=== PATIENT | female | born 1975 | race Caucasian/White ===

== ENCOUNTER 2022-08-04 00:10 | Day surgery (SDC) | payer OTHER, MEDICAID, SELFPAY ==
[2022-07-29 11:06] VITALS: BMI 39.3
[2022-08-04 08:38] VITALS: BP 123/86; PULSE 118; RESP 18; TEMP 36.4; O2SAT 97; BMI 38.7
[2022-08-04] MEDS: LACTATED RINGERS 1,000 ML 150 ML IV CONT (08:48)
--- NOTE | 2022-08-04 09:37 | P.PNAN_ITS ---
Anes - Initial Pre Proc Eval Procedure: Operation Date: 08/04/22 10:00 Proposed Procedures p Screening Colonoscopy - Lobito Mancini MD Date/Time: 08/04/22 09:37 Surgeon: Lobito Mancini MD Pre Op Diagnosis: neoplasm screening Patient Data Age: 47 Gender: F Height: 1.7 m Weight: 112.3 kg Last Vital Signs Temp 97.5 F L 08/04/22 08:38 Pulse 118 H 08/04/22 08:38 Resp 18 08/04/22 08:38 BP 123/86 08/04/22 08:38 Pulse Ox 97 08/04/22 08:38 O2 Del Method Room Air 08/04/22 08:38 Allergies Allergy/AdvReac Type Severity Reaction Status Date / Time orphenadrine [From Norflex] Allergy Hives Verified 08/04/22 08:36 Home Medications Medication Instructions Recorded Confirmed Type Vitamin C 2 gummy PO DAILY 07/29/22 08/04/22 History aspirin 81 mg BYMOUTH DAILY 07/29/22 08/04/22 History atorvastatin 80 mg tablet 80 mg PO DAILY 07/29/22 08/04/22 History bupropion HCl 300 mg 24 hr tablet, 300 mg PO DAILY 07/29/22 08/04/22 History extended release buspirone 10 mg tablet 10 mg PO TID 07/29/22 08/04/22 History cariprazine 6 mg capsule (Vraylar) 6 mg PO DAILY 07/29/22 08/04/22 History cetirizine 1 tab-cap PO DAILY 07/29/22 08/04/22 History desvenlafaxine succinate 100 mg 100 mg PO DAILY 07/29/22 08/04/22 History tablet,extended release 24 hr (Pristiq) levothyroxine 25 mcg tablet 25 mcg PO DAILY 07/29/22 08/04/22 History metoprolol succinate 50 mg 50 mg PO DAILY 07/29/22 08/04/22 History tablet,extended release 24 hr mirtazapine 15 mg tablet 15 mg PO DAILY 07/29/22 08/04/22 History Patient hx anesthesia problems: none Family hx anesthesia problems: none Results Review: All pre-operative results and documents have been reviewed as part of the pre- operative evaluation. PMFSH Social History Social History Smoking packs per day: 1 Smoking cigarettes per day: 20.0 Years smoked: 35 Smoking pack-years: 35.00 Smoking status: Former smoker Tobacco type: cigarettes Alcohol intake: never Substance use: never Substance use type: does not use Living arrangements: with family Spiritual care concerns: No Anes - Eval Final PreProcedure Day of Procedure 08/04/22 09:37 Patient weight: obese Heart: regular rate and rhythm Lungs: clear to auscultation Airway: Mallampati scale class II Neurological: alert and oriented Last oral intake: >/= 8 hours ASA classification: III Emergent: no Anesthetic plan: proceed Anesthesia type and monitoring: general GIVS and standard monitoring Results Review: All pre-operative results and documents have been reviewed as part of the pre- operative evaluation. Informed Consent: The patient's anesthetic plan and its attendant risks and benefits were discussed with the patient/family/POA. Questions were solicited and answers provided to the satisfaction of the patient/family/POA.
--- NOTE | 2022-08-04 09:38 | PM.HPGS ---
History of Present Illness History of Present Illness Consent: Risks, benefits, and alternatives have been discussed and questions answered. Patient agrees to proceed with procedure. Chief complaint: neoplasm screening Narrative: Veronica Callahan is a 47 year old female with history of colon polyp Review of Systems Constitutional: Constitutional: Denies headache(s) and Denies weakness Eyes: Eyes: Denies blurry vision ENT: Reports Normal hearing present, Denies headache(s) and Denies neck pain Cardiovascular: Cardiovascular: Denies chest pain and Denies dyspnea Respiratory: Respiratory: Denies dyspnea Gastrointestinal: Gastrointestinal: Reports no additional gastrointestinal complaints Genitourinary: Genitourinary: Denies dysuria Musculoskeletal: Musculoskeletal: Denies neck pain Integumentary/Breasts: Skin/Breast: Denies dry skin Neurologic: Reports Normal hearing present, Denies headache(s) and Denies weakness Psychiatric: Psychiatric: Denies anxiety Endocrine: Endocrine: Denies change in body appearance Hematologic/Lymphatic: Hematologic/Lymphatic: Denies easy bleeding Allergic/Immunologic: Allergic/Immunologic: Denies urticaria PMF Past Medical History Medical History (Updated 08/04/22 @ 09:40 by Lobito Mancini MD) Colon polyp Social History Social History Smoking packs per day: 1 Smoking cigarettes per day: 20.0 Years smoked: 35 Smoking pack-years: 35.00 Smoking status: Former smoker Tobacco type: cigarettes Alcohol intake: never Substance use: never Substance use type: does not use Living arrangements: with family Spiritual care concerns: No Meds Home Medications and Allergies Home Medications Medication Instructions Recorded Confirmed Type Vitamin C 2 gummy PO DAILY 07/29/22 08/04/22 History aspirin 81 mg BYMOUTH DAILY 07/29/22 08/04/22 History atorvastatin 80 mg tablet 80 mg PO DAILY 07/29/22 08/04/22 History bupropion HCl 300 mg 24 hr tablet, 300 mg PO DAILY 07/29/22 08/04/22 History extended release buspirone 10 mg tablet 10 mg PO TID 07/29/22 08/04/22 History cariprazine 6 mg capsule (Vraylar) 6 mg PO DAILY 07/29/22 08/04/22 History cetirizine 1 tab-cap PO DAILY 07/29/22 08/04/22 History desvenlafaxine succinate 100 mg 100 mg PO DAILY 07/29/22 08/04/22 History tablet,extended release 24 hr (Pristiq) levothyroxine 25 mcg tablet 25 mcg PO DAILY 07/29/22 08/04/22 History metoprolol succinate 50 mg 50 mg PO DAILY 07/29/22 08/04/22 History tablet,extended release 24 hr mirtazapine 15 mg tablet 15 mg PO DAILY 07/29/22 08/04/22 History Allergies Allergy/AdvReac Type Severity Reaction Status Date / Time orphenadrine [From Norflex] Allergy Hives Verified 08/04/22 08:36 Vital Signs Vital Signs - 24 hr 08/04/22 08:38 Temperature 97.5 F L Pulse Rate 118 H Respiratory Rate 18 Blood Pressure 123/86 Pulse Oximetry 97 Oxygen Delivery Room Air Exam Const: General: comfortable and no acute distress HENMT: Face/Nose/Sinus: Normal nares present Eyes: General: appearance normal, both eyes and all related structures Neck: Neck: no JVD Resp: Auscultation: clear to auscultation bilaterally Cardio: Rate: regular rate Rhythm: regular rhythm GI: Inspection: non-distended GI Palp: Yes Soft to palpation Skin: General skin exam: normal color Neuro: General: gait normal Speech: normal speech Extrem: General: normal to inspection Psych: Mental Status: mental status grossly normal Assessment and Plan Assessment and plan (1) Colon polyp: Code(s): K63.5 - Polyp of colon Status: Acute Assessment and Plan: colonoscopy
[2022-08-04 10:01] VITALS: BP 96/64; PULSE 89; RESP 18; O2SAT 95
[2022-08-04 10:11] VITALS: BP 110/74; PULSE 87; RESP 19; O2SAT 96
[2022-08-04 10:21] VITALS: BP 130/72; PULSE 85; RESP 22; O2SAT 96
== END 2022-08-04 10:28 | disposition home or self-care (01) ==
PROVIDERS: PCP Nurse Practitioner Family; Visit Provider Internal Medicine Gastroenterology
PROC: 0DJD8ZZ Inspection of Lower Intestinal Tract, Via Natural or Artificial Opening Endoscopic (ICD-10-PCS; CPT 45378; principal; 2022-08-04 10:00)
DX: Z12.11 Encounter for screening for malignant neoplasm of colon (principal); D12.3 Benign neoplasm of transverse colon; K64.8 Other hemorrhoids; Z87.891 Personal history of nicotine dependence; E66.9 Obesity, unspecified; Z68.38 Body mass index [BMI] 38.0-38.9, adult; Z79.82 Long term (current) use of aspirin
CPT/HCPCS: 45385; 88305; J2704; J7120

== ENCOUNTER 2024-09-12 23:17 | Emergency (ER) | payer OTHER, MEDICAID, SELFPAY ==
--- NOTE | ~2024-09-12 | XR_ITS ---
Clinical Indication: Cough PA and lateral views of the chest: Comparison: None Findings: The lungs are clear, without evidence of focal consolidation or pleural effusion. Cardiome diastinal silhouette is within normal limits. Lumbar spine fixation hardware present. Impression: Clear lungs. Reviewed, dictated and finalized at location . [employer] Impression: Clear lungs.
[2024-09-12 23:24] VITALS: BP 154/96; PULSE 84; RESP 17; TEMP 36.9; O2SAT 98
--- NOTE | 2024-09-13 00:04 | PC.NURSE ---
pt's boss was diagnosed tuesday09/11/2024 with covid but patient had not been around the boss since 09/05/2024 at the work [employer].
--- NOTE | 2024-09-13 00:30 | ED_ITS ---
HPI - URI/Sore Throat General Chief Complaint: Upper Respiratory Infection Stated Complaint: Runny, stuffed up nose, sinuses, cough daysx2, ALEMAN Time Seen by Provider: 09/13/24 00:00 Source: patient Mode of arrival: ambulatory Limitations: no limitations History of Present Illness HPI Narrative: This is a 49 year old female that presents to the ER for cold symptoms. Present over the last couple of days. Reports cough, congestion, rhinorrhea, headache, sinus pain. Denies fevers. Related Data Home Medications ?Medication ?Instructions ?Recorded ?Confirmed ?Last Taken ?Type Vitamin C 2 gummy PO DAILY 07/29/22 08/04/22 Unknown History aspirin 81 mg BYMOUTH DAILY 07/29/22 08/04/22 Unknown History atorvastatin 80 mg tablet 80 mg PO DAILY 07/29/22 08/04/22 Unknown History bupropion HCl 300 mg 24 hr tablet, 300 mg PO DAILY 07/29/22 08/04/22 Unknown History extended release buspirone 10 mg tablet 10 mg PO TID 07/29/22 08/04/22 Unknown History cariprazine 6 mg capsule (Vraylar) 6 mg PO DAILY 07/29/22 08/04/22 Unknown History cetirizine 1 tab-cap PO DAILY 07/29/22 08/04/22 Unknown History desvenlafaxine succinate 100 mg 100 mg PO DAILY 07/29/22 08/04/22 Unknown History tablet,extended release 24 hr (Pristiq) levothyroxine 25 mcg tablet 25 mcg PO DAILY 07/29/22 08/04/22 Unknown History metoprolol succinate 50 mg 50 mg PO DAILY 07/29/22 08/04/22 Unknown History tablet,extended release 24 hr mirtazapine 15 mg tablet 15 mg PO DAILY 07/29/22 08/04/22 Unknown History linaclotide 145 mcg capsule 145 mcg PO .PRN 10/28/22 Unknown History (Linzess) Allergies Allergy/AdvReac Type Severity Reaction Status Date / Time orphenadrine (From Norflex) Allergy Hives Verified 10/28/22 10:29 Review of Systems Review of Systems: CONSTITUTIONAL: Denies fever ENT: Reports rhinorrhea, congestion RESPIRATORY: Reports cough. Denies dyspnea. All systems reviewed & are unremarkable except as noted in HPI and below PMFSH Past Medical History Medical History Colon polyp Social History Social History Smoking packs per day: 1 Smoking cigarettes per day: 20.0 Years smoked: 35 Smoking pack-years: 35.00 Smoking status: Former smoker Tobacco type: cigarettes Alcohol intake: never Substance use: never Substance use type: does not use Living arrangements: with family Spiritual care concerns: No Exam Narrative: GENERAL: Well-appearing, well-nourished, and in no acute distress. HEAD: Normocephalic, atraumatic. EYES: EOMI. ENT: Nares clear, no rhinorrhea or epistaxis. Mucous membranes moist. Oropharynx without tonsillar hypertrophy exudate or other lesions. Bilateral TMs pearly truong non-bulging. Tender to palpation of maxillary sinuses NECK: Supple. No adenopathy or masses. CHEST: Clear to auscultation. No respiratory distress. No wheezes rales or rhonchi HEART: Regular rate and rhythm. No murmur heard. Normal peripheral pulses. EXTREMITIES: Normal range of motion. No edema. SKIN: Warm, dry, no rash. NEURO: No focal deficits. Alert and oriented x3. PSYCH: Normal mood and affect Course Course Emergency Course: patient updated on workup and agrees with plan of care Vital Signs Vital signs: Vital Signs Temperature 98.5 F 09/12/24 23:24 Pulse Rate 84 09/12/24 23:24 Respiratory Rate 17 09/12/24 23:24 Blood Pressure 154/96 H 09/12/24 23:24 Pulse Oximetry 98 09/12/24 23:24 Oxygen Delivery Room Air 09/12/24 23:24 Temperature 98.5 F 09/12/24 23:24 Pulse Rate 84 09/12/24 23:24 Respiratory Rate 17 09/12/24 23:24 Blood Pressure 154/96 H 09/12/24 23:24 Pulse Oximetry 98 09/12/24 23:24 Oxygen Delivery Room Air 09/12/24 23:24 MDM - URI/Sore Throat MDM Narrative Medical decision making narrative: Patient presents the emergency department for cold symptoms present over the last couple of days. She is afebrile and nontoxic appearing. Lungs are clear on exam. Oxygen saturation is normal on room air. Influenza, RSV and COVID screens are negative. Chest x-ray without acute cardiopulmonary abnormality. Patient updated on workup and agrees plan of care. She is to follow up with primary provider. She was given warnings to return to the ER Differential Diagnosis Differential diagnosis: Likely upper respiratory infection, sinusitis, viral infection, bronchitis and influenza Lab Data Attestation: I reviewed the patient's lab results. Labs: Lab Results 09/13/24 Range/Units 00:02 Influenza A (RT-PCR) Negative (Negative) Influenza B (RT-PCR) Negative (Negative) RSV (RT-PCR) Negative (Negative) SARS-CoV-2 RNA (RT-PCR) Negative (Negative) Imaging Data My impression: Chest x-ray: No acute cardiopulmonary abnormality Critical Care Time Critical Care Time Critical Care Time: No Discharge Plan Discharge Clinical Impression: Acute sinusitis Qualifiers: Sinusitis location: maxillary Recurrence: not specified as recurrent Qualified Code(s): J01.00 - Acute maxillary sinusitis, unspecified Patient Disposition: Home, Self-Care Condition: Stable Instructions: Sinusitis (ED) Additional Instructions: Return to the emergency department for worsening symptoms, or any other concerns Remain well-hydrated, get plenty of rest. Take Tylenol or Motrin [id number] for pain as needed. Flonase for nasal congestion. Zyrtec for runny nose. Follow up with your primary care doctor Patient Language: Lithuanian Prescriptions: No Action Linzess 145 mcg capsule 145 mcg PO .PRN atorvastatin 80 mg tablet 80 mg PO DAILY metoprolol succinate 50 mg tablet extended release 24 hr 50 mg PO DAILY levothyroxine 25 mcg tablet 25 mcg PO DAILY buspirone 10 mg tablet 10 mg PO TID mirtazapine 15 mg tablet 15 mg PO DAILY bupropion HCl 300 mg tablet extended release 24 hr 300 mg PO DAILY desvenlafaxine succinate [Pristiq] 100 mg Tablet Extended Release 24 Hr 100 mg PO DAILY Vraylar 6 mg capsule 6 mg PO DAILY Vitamin C 2 gummy PO DAILY aspirin 81 mg BYMOUTH DAILY cetirizine 1 tab-cap PO DAILY Follow-up/Referrals: Gabe,SAGAR PuckettP [Primary Care Provider] -
[2024-09-13 00:45] LABS: Influenza A QL RT-PCR Negative (Negative); Influenza B QL RT-PCR Negative (Negative); RSV RNA, RT-PCR Negative (Negative); SARS-CoV-2 RNA PCR Negative (Negative)
[2024-09-13 01:04] VITALS: BP 138/76; PULSE 76; RESP 16; TEMP 36.6; O2SAT 98
== END 2024-09-13 01:05 | disposition home or self-care (01) ==
PROVIDERS: Emergency Provider Physician Assistant; PCP Nurse Practitioner Family
DX: J01.00 Acute maxillary sinusitis, unspecified (principal); Z20.822 Contact with and (suspected) exposure to COVID-19; Z86.0100 Personal history of colon polyps, unspecified; Z87.891 Personal history of nicotine dependence; Z79.899 Other long term (current) drug therapy
CPT/HCPCS: 71046; 87637; 99283

== ENCOUNTER 2024-11-20 10:48 | Emergency (ER) | payer OTHER, MEDICAID, SELFPAY ==
--- NOTE | ~2024-11-20 | XR_ITS ---
HISTORY: NON TRAUMATIC PAIN X 1 WEEK COMPARISON: None TECHNIQUE: 4 views of the left shoulder were performed FINDINGS: No acute fracture. The glenohumeral and acromioclavicular joint space is maintained The visualized portion of the adjacent left lung is clear. The humeral head is well seated within the glenoid fossa. IMPRESSION: No acute fracture or anterior dislocation. Reviewed, dictated and finalized at location A. [facility]
[2024-11-20 11:04] VITALS: BP 124/79; PULSE 100; RESP 16; TEMP 36.1; O2SAT 96
--- NOTE | 2024-11-20 12:25 | ED_ITS ---
HPI - General Adult General Chief complaint: Extremity Injury, Upper Stated complaint: left shoulder injury Time Seen by Provider: 11/20/24 12:05 History of Present Illness HPI narrative: Patient is a 49-year-old female who presents emergency department with chief complaint of left shoulder pain the patient reports she was getting up out of a chair and strained herself trying to lift her body patient reports she has pain in shoulder reports worse with movement and improved with rest patient denies numbness or tingling Related Data Home Medications ?Medication ?Instructions ?Recorded ?Confirmed ?Last Taken ?Type Vitamin C 2 gummy PO DAILY 07/29/22 08/04/22 Unknown History aspirin 81 mg BYMOUTH DAILY 07/29/22 08/04/22 Unknown History atorvastatin 80 mg tablet 80 mg PO DAILY 07/29/22 08/04/22 Unknown History bupropion HCl 300 mg 24 hr tablet, 300 mg PO DAILY 07/29/22 08/04/22 Unknown History extended release buspirone 10 mg tablet 10 mg PO TID 07/29/22 08/04/22 Unknown History cariprazine 6 mg capsule (Vraylar) 6 mg PO DAILY 07/29/22 08/04/22 Unknown History cetirizine 1 tab-cap PO DAILY 07/29/22 08/04/22 Unknown History desvenlafaxine succinate 100 mg 100 mg PO DAILY 07/29/22 08/04/22 Unknown History tablet,extended release 24 hr (Pristiq) levothyroxine 25 mcg tablet 25 mcg PO DAILY 07/29/22 08/04/22 Unknown History metoprolol succinate 50 mg 50 mg PO DAILY 07/29/22 08/04/22 Unknown History tablet,extended release 24 hr mirtazapine 15 mg tablet 15 mg PO DAILY 07/29/22 08/04/22 Unknown History linaclotide 145 mcg capsule 145 mcg PO .PRN 10/28/22 Unknown History (Linzess) Allergies Allergy/AdvReac Type Severity Reaction Status Date / Time orphenadrine (From Norflex) Allergy Hives Verified 10/28/22 10:29 Review of Systems Review of Systems: A 10 system review of systems was completed on the patient and is negative except for what is stated in the HPI. Nursing and ancillary documentation was reviewed. [facility] Past Medical History Medical History Colon polyp Social History Social History Smoking packs per day: 1 Smoking cigarettes per day: 20.0 Years smoked: 35 Smoking pack-years: 35.00 Smoking status: Former smoker Tobacco type: cigarettes Alcohol intake: never Substance use: never Substance use type: does not use Living arrangements: with family Spiritual care concerns: No Exam Narrative: GENERAL: Well-appearing, well-nourished, and in no acute distress. HEAD: Normocephalic, atraumatic. EYES: PERRLA and EOMI. ENT: Nares clear, no rhinorrhea or epistaxis. Mucous membranes moist. NECK: Supple. CHEST: Clear to auscultation. No respiratory distress. HEART: Regular rate and rhythm. No murmur heard. Normal peripheral pulses. ABDOMEN: Soft, nontender, nondistended, normal active bowel sounds. EXTREMITIES: Normal range of motion in all extremities except left upper extremity limited range left shoulder no bony step-off noted. No edema. SKIN: Warm, dry, no rash. NEURO: No focal deficits. Alert and oriented x3. No paresthesias noted intact motor and sensory distal to the shoulder PSYCH: Normal mood and affect. Course Vital Signs Vital signs: Vital Signs Temperature 36.1 C L 11/20/24 11:04 Pulse Rate 100 11/20/24 11:04 Respiratory Rate 16 11/20/24 11:04 Blood Pressure 124/79 11/20/24 11:04 Pulse Oximetry 96 11/20/24 11:04 Oxygen Delivery Room Air 11/20/24 11:04 Temperature 36.1 C L 11/20/24 11:04 Pulse Rate 100 11/20/24 11:04 Respiratory Rate 16 11/20/24 11:04 Blood Pressure 124/79 11/20/24 11:04 Pulse Oximetry 96 11/20/24 11:04 Oxygen Delivery Room Air 11/20/24 11:04 Medical Decision Making [facility] Narrative Medical decision making narrative: Differential diagnosis includes fracture, strain, sprain Plain film x-rays left shoulder showed no evidence of fracture Patient be discharged home on Flexeril and will be discharged home on diclofenac Vital Signs Vital Signs: Vital Signs Temperature 36.1 C L 11/20/24 11:04 Pulse Rate 100 11/20/24 11:04 Respiratory Rate 16 11/20/24 11:04 Blood Pressure 124/79 11/20/24 11:04 Pulse Oximetry 96 11/20/24 11:04 Oxygen Delivery Room Air 11/20/24 11:04 Temperature 36.1 C L 11/20/24 11:04 Pulse Rate 100 11/20/24 11:04 Respiratory Rate 16 11/20/24 11:04 Blood Pressure 124/79 11/20/24 11:04 Pulse Oximetry 96 11/20/24 11:04 Oxygen Delivery Room Air 11/20/24 11:04 Discharge Plan Discharge Clinical Impression: Left shoulder strain Patient Disposition: Home, Self-Care Condition: Stable Instructions: Antibiotic Form, Shoulder Sprain (ED) Patient Language: Australian Prescriptions: New cyclobenzaprine 10 mg tablet 10 mg PO TID PRN (Reason: muscle spasm) Qty: 21 0RF diclofenac potassium 50 mg tablet 50 mg PO TID PRN (Reason: pain) Qty: 30 0RF No Action Linzess 145 mcg capsule 145 mcg PO .PRN atorvastatin 80 mg tablet 80 mg PO DAILY metoprolol succinate 50 mg tablet extended release 24 hr 50 mg PO DAILY levothyroxine 25 mcg tablet 25 mcg PO DAILY buspirone 10 mg tablet 10 mg PO TID mirtazapine 15 mg tablet 15 mg PO DAILY bupropion HCl 300 mg tablet extended release 24 hr 300 mg PO DAILY desvenlafaxine succinate [Pristiq] 100 mg Tablet Extended Release 24 Hr 100 mg PO DAILY Vraylar 6 mg capsule 6 mg PO DAILY Vitamin C 2 gummy PO DAILY aspirin 81 mg BYMOUTH DAILY cetirizine 1 tab-cap PO DAILY Follow-up/Referrals: Mari Don DO [Physician] - UNKNOWN,DOCTOR [Primary Care Provider] - Time of Disposition: 12:29
[2024-11-20] MEDS: KETOROLAC 30 MG/ML VIAL (*BKC) IM (12:43)
--- OUTSIDE RECORDS SUMMARY | 2024-11-20 12:43 | XMS_ITS | Referral Summary ---
Author Organization [facility] [address] [facility] [address] Address [address] [place] [address] Care Team Providers Care Job Molder Name Role Phone Yoly Rivera NP Primary Care Provider Stan Haq MD Unavailable Sangita Aguiar MD Unavailable Damian Carrizales MD Unavailable Jaz Sanders NP Unavailable [phone] Encounters Date Type Department Care Team Description 10/25/2024 11:32 AM CLEANER AND PREPARER - 10/25/2024 11:59 PM CLEANER AND PREPARER Hospital Encounter [address] [address] Acquired hypothyroidism Discharge Disposition: Discharge to home or self care 10/25/2024 11:30 AM CLEANER AND PREPARER Lab [facility] Outpatient Lab at [address] [phone] Mixed hyperlipidemia (Primary Dx) 10/17/2024 8:45 AM CLEANER AND PREPARER Office Visit [facility] Pulmonary at [address] [place] [address] Stan Haq MD Cigarette nicotine dependence in remission (Primary Dx); Moderate persistent asthma without complication; Obstructive sleep apnea; Class 3 severe obesity due to excess calories without serious comorbidity with body mass index (BMI) of 40.0 to 44.9 in adult (HCC) 10/09/2024 10:00 AM CLEANER AND PREPARER Office Visit [facility] Primary Care at [place] [address] [place] [address] Yoly Rivera NP Establishing care with new doctor, encounter for (Primary Dx); Hypertension, essential; Mixed hyperlipidemia; Prediabetes; Acquired hypothyroidism; Stage 3a chronic kidney disease (HCC); Environmental and seasonal allergies; Bipolar 1 disorder (HCC); Recurrent major depressive disorder, in full remission (CMS/HCC) (HCC); Moderate persistent asthma without complication; KRISHNA (obstructive sleep apnea); Morbid obesity with BMI of 40.0-44.9, adult ([facility]) 10/08/2024 8:44 AM CLEANER AND PREPARER - 10/08/2024 11:59 PM CLEANER AND PREPARER Hospital Encounter [facility] [address] [place] [address] Screening mammogram, encounter for Discharge Disposition: Discharge to home or self care 08/29/2024 9:30 AM CLEANER AND PREPARER Office Visit [facility] Sleep Medicine at [place] [address] [place] [id number] Sangita Aguiar MD KRISHNA (obstructive sleep apnea) (Primary Dx); Treatment-emergent central sleep apnea; Hypersomnia; Obesity, unspecified class, unspecified obesity type, unspecified whether serious comorbidity present 08/27/2024 7:00 PM CLEANER AND PREPARER - 08/27/2024 11:59 PM CLEANER AND PREPARER Hospital Encounter [facility] [address] [place] [id number] KRISHNA (obstructive sleep apnea) Discharge Disposition: Discharge to home or self care from Last 3 Months Allergies Active Allergy Reactions Criticality Noted Date Comments Orphenadrine Citrate Hives,Itching,Rash Medium 018 Medications busPIRone (BUSPAR) 10 mg tablet 03/01/20 23 Active fluticasone propion-salmeteroL (ADVAIR DISKUS) 250-50 mcg/dose diskus inhaler Inhale 1 puff 2 (two) times a day Rinse mouth with water after use. Do not swallow. 60 each 11 06/25/20 24 Active modafiniL (PROVIGIL) 200 mg tablet Take 1 tablet (200 mg total) by mouth daily 30 tablet 2 07/27/20 24 Active Additional Information Patient not taking.Reported on 10/17/2024 linaCLOtide (Linzess) 72 mcg capsule Oral 12/29/19 24 Active hydrOXYzine (ATARAX) 10 mg tablet Take 1 tablet (10 mg total) by mouth 2 (two) times a day as needed 09/27/19 25 Active buPROPion XL (WELLBUTRIN XL) 150 mg 24 hr tablet Take 1 tablet (150 mg total) by mouth 09/30/19 25 Active Vraylar 1.5 mg capsule capsule Take 1 capsule (1.5 mg total) by mouth 09/27/19 25 Active ascorbic acid (VITAMIN C ORAL) Take by mouth Active BIOTIN ORAL Take by mouth Acti ve cetirizine (ZyrTEC) 10 mg tabletIndications: Environmental and seasonal allergies Take 1 tablet (10 mg total) by mouth daily as needed for allergies 90 tablet 3 10/09/19 25 026 Active atorvastatin (LIPITOR) 80 mg tabletIndications: Mixed hyperlipidemia Take 1 tablet (80 mg total) by mouth daily 90 tablet 1 10/09/19 25 Active metoprolol XL (TOPROL-XL) 25 mg extended release tabletIndications: Hypertension, essential Take 1 tablet (25 mg total) by mouth daily 100 tablet 10/09/19 25 025 Active desvenlafaxine ER 50 mg 24 hr tablet 10/15/19 25 Active albuterol HFA (PROVENTIL HFA,VENTOLIN HFA,PROAIR HFA) 90 mcg/actuation inhaler Inhale 2 puffs every 6 (six) hours as needed for wheezing or shortness of breath 1 each 11 10/17/19 25 Active levothyroxine (SYNTHROID) 50 mcg tablet Take 1 tablet (50 mcg total) by mouth daily 90 tablet 3 10/26/19 25 Active levothyroxine (SYNTHROID) 50 mcg tablet TAKE 1 TABLET BY MOUTH EVERY DAY 90 tablet 3 12/30/19 24 025 Discontin ued(Reord er) Active Problems Problem Noted Date Diagnosed Date Environmental and seasonal allergies 10/09/2024 Assessment & Plan (10/09/2024 10:50 AM CLEANER AND PREPARER): -chronic, not at goal -currently uses Benadryl t.i.d. -reports worsening of allergies during weather changes and environmental factors -Zyrtec 10 mg nightly prescribed -continue current treatment plan Elevated alkaline phosphatase level 04/16/2024 Assessment & Plan (04/16/2024 10:54 AM CDT): This is a chronic problem. Levels have been stable at 150's GGT was slightly elevated in September. Likely due to obesity, fatty liver. ALT and AST is within normal limits. May consider liver ultrasound in future if levels ever elevate KRISHNA (obstructive sleep apnea) 01/23/2024 Assessment & Plan (10/09/2024 10:42 AM CLEANER AND PREPARER): -chronic, at goal -patient currently reports compliance with CPAP machine -denies any excessive fatigue or daytime sleepiness -continue current treatment plan Assessment & Plan (01/23/2024 1:11 PM CDT): Remain on BiPAP with all sleep We have discussed the risks of uncorrected sleep apnea Continue to follow the sleep medicine Moderate persistent asthma without complication 01/23/2024 Assessment & Plan (10/09/2024 10:49 AM CLEANER AND PREPARER): -chronic, stable -patient currently prescribed albuterol rescue inhaler, Advair disc maintenance inhaler -patient reports their asthma/COPD is fairly well-controlled on current regimen -patient denies needing to use rescue inhaler frequently -no wheezing noted on exam -continue current treatment plan Assessment & Plan (01/23/2024 2:36 PM CDT): She has been stable on Advair 250/50 with no exacerbation Is appropriate to deescalate therapy, we will start Advair 100/50 twice daily Prescription sent today, she was aware to rinse and spit after use We have extensively discussed reportable signs and symptoms, she will call with questions or concerns Continue albuterol as needed only, discussed indications for use Hypertension, essential 10/03/2023 Assessment & Plan (10/09/2024 10:34 AM CLEANER AND PREPARER): BP Readings from Last 3 Encounters: 10/09/24 114/72 08/29/24 107/77 07/27/24 136/91 -chronic, at goal of <140/90 -currently taking metoprolol 25 mg daily -patient reports checking blood pressure regularly at home -encourage patient to continue low-sodium diet -continue current treatment plan Assessment & Plan (04/16/2024 10:51 AM CDT): Blood pressure is well controlled. Continue metoprolol XL 25 mg once daily. Assessment & Plan (01/04/2024 11:02 AM CDT): Stable/ Improved. Blood pressure is adequately controlled on Metoprolol . We will not make any medication changes today. Will have her follow-up in 6 months for continued monitoring and management ECG 12 lead Date/Time: 01/04/2024 11:01 AM Performed by: Tila Bernal NP Authorized by: Tila Bernal NP Comparison: not compared with previous ECG Rhythm: sinus rhythm Rate: normal QRS axis: normal Conduction: conduction normal ST Segments: ST segments normal T Waves: T waves normal Other: no other findings Clinical impression: normal ECG Assessment & Plan (10/03/2023 10:52 AM CLEANER AND PREPARER): Improving. Patient has been on metoprolol xl for many years. Blood pressure on lower side today. C/o of fatigue. Will lower from 50mg to 25mg daily. Have her f/u in 3 months for recheck on blood pressure and we will get an EKG with a physical at that time. May consider changing medication at that time as well Prediabetes 10/03/2023 Assessment & Plan (10/09/2024 10:35 AM CLEANER AND PREPARER): Lab Results Component Value Date HGBA1C 5.8 (H) 04/12/2024 -chronic, at goal -currently through diet and exercise -patient reports checking blood sugar regularly at home -reiterated importance of diabetic foot and eye exams -most recent hemoglobin A1c shown above -will recheck lab work at next visit -continue current treatment plan Assessment & Plan (04/16/2024 10:52 AM CDT): Stable. Hemoglobin A1c was 5.8% emphasized lifestyle changes and keeping weight down. Assessment & Plan (10/03/2023 10:54 AM CLEANER AND PREPARER): Stable. Patient has pre diabetes but not diabetes. Her A1cs have always been below 6%. She has not currently on any medication for diabetes. Recommend low carb diet and weight loss. Increase exercise. The website cdc.gov (Centers for Disease Control) also has helpful information about diet/exercise..... click Health Topics, search Healthy Weight or scroll down to H and Healthy Weight and then click on Healthy Eating for a Healthy Weight . They also have information on prediabetes and prevention of type 2 diabetes. Also click Health Topics and search prediabetes Acquired hypothyroidism 10/03/2023 Assessment & Plan (10/09/2024 10:48 AM CLEANER AND PREPARER): Lab Results Component Value Date TSH 2.69 04/12/2024 -chronic, controlled -patient currently takes Synthroid 50 mcg daily -most recent TSH within normal range -Will recheck TSH and T4 -continue current treatment plan Assessment & Plan (01/01/2024 8:09 PM CDT): TSH now within normal limits. Continue levothyroxine 50mcg daily. F/u 6 months Assessment & Plan (10/03/2023 10:56 AM CLEANER AND PREPARER): Will increase levothyroxine to 50 mcg daily based on her last TSH which was done last week. Will have her follow-up in 3 months with repeat TSH Stage 3a chronic kidney disease 10/03/2023 Assessment & Plan (10/09/2024 10:37 AM CLEANER AND PREPARER): Lab Results Component Value Date CREATININE 1.03 04/12/2024 BUNSER 8 04/12/2024 SODIUM 142 04/12/2024 POTASSIUM 4.2 04/12/2024 CO2 27 04/12/2024 -chronic, stable -last EGFR was 56 -educated patient on importance of avoiding NSAIDs and other nephrotoxic medications -will continue to monitor renal function Assessment & Plan (01/01/2024 8:00 PM CDT): GFR is 56. Condition is stable. Continue to monitor Assessment & Plan (10/03/2023 10:57 AM CLEANER AND PREPARER): Lab Results Component Value Date GFRNAA 55 09/29/2023 Lab Results Component Value Date CREATININE 1.21 (H) 09/29/2023 Lab Results Component Value Date BUNSER 8 09/29/2023 We discussed her water intake which is minimal. She drinks a lot of tea and does drink some sparkling water. Encouraged increased water intake Continue to follow a Renal diet that is low in sodium, potassium, and phosphorus. Avoid/limit foods such as fast food items, fried/breaded foods, canned goods, deli meats, gravies/sauces, bananas, tomatoes, oranges, milk, dark melony and chocolate. Anasco juice, citrus juices, and tomato juice are also high in potassium. Do not use salt substitutes, as they may contain potassium. Additional resources available online from the National Kidney Foundation at www.kidney.org/nutrition Labs are stable. Continue tight blood pressure control. Encouraged adequate fluid intake. Avoid nsaids. Will continue to monitor. Multiple lipomas 10/03/2023 Assessment & Plan (10/03/2023 10:58 AM CLEANER AND PREPARER): Has 3 lipomas. Most bothersome 1 is on her right inner thigh. Will send her to plastic surgery for evaluation of removal which patient is considering at this time Morbid obesity with BMI of 40.0-44.9, adult 0 05/2023 Assessment & Plan (10/09/2024 10:46 AM CLEANER AND PREPARER): Wt Readings from Last 3 Encounters: 10/09/24 122.9 kg (271 lb) 08/29/24 122.1 kg (269 lb 3.2 oz) 07/27/24 123.4 kg (272 lb) Body mass index is 43.66 kg/m . -Stable, not at goal of <30 bmi -Discussed recommendations for exercise at least 30 minutes moderate to vigorous exercise as tolerated most days of the week. (minimum 150 minutes weekly) -Discussed importance of well-balanced diet Assessment & Plan (01/01/2024 7:59 PM CDT): BMI Follow-up includes: exercise counseling. Assessment & Plan (10/03/2023 10:54 AM CLEANER AND PREPARER): BMI Follow-up includes: nutrition counseling and exercise counseling. Assessment & Plan (03/31/2023 10:39 AM CDT): Refer to general surgery for weight loss srugery evaluation. Will also have her return to see me to start CHIP visits to discuss nutrition/ weight and coaching Irritable bowel syndrome with constipation 10/13 Assessment & Plan (05/07/2023 10:39 AM CDT): Constipation well controlled with linzess 72 mcg every other day Recent labs since last visit reviewed from 02/28/2023 showed mildly elevated alk-phos 139 otherwise normal CMP, lipid panel, TSH, vitamin-D, CBC Labs 06/2022 showed mildly elevated alk-phos 154 and creatinine 1.18 otherwise normal CMP, and CBC, normal TSH 08/[address] A/P w/o contrast 02/2018 showed no GI findings Colonoscopy 07/2022 showed two 4-5 mm TAs Plan Continue current regimen with linzess 72 mcg every other day. Assessment & Plan (03/31/2023 10:35 AM CDT): Stable. Linzess helps, still has fecal urgency at times. Still follows with GI. GI also follows mildly elevated alk-phos . Colonoscopy up to date. Assessment & Plan (01/26/2023 5:32 PM CDT): Currently on linzess 145 mcg daily with 3-4 loose/semi formed BM daily, associated with some fecal urgency Prior to trying linzess, tried all the OTC laxatives with no relief Only some abdominal pain if not gone for a while otherwise no pain No n/v, heartburn, reflux, hematochezia, occasionally nausea prior to BM that goes away after. Labs 06/2022 that showed mildly elevated alk-phos 154 and creatinine 1.18 otherwise normal CMP, and CBC, normal TSH 08/[address] A/P w/o contrast 02/2018 showed no GI findings Colonoscopy 07/2022 showed two 4-5 mm TAs Plan Will try 72 mcg linzess, sample given, if good relief without causing diarrhea and significant urgency then will write new script Assessment & Plan (10/13/2022 8:02 AM CLEANER AND PREPARER): linzess 290 helps but causes diarrhea, doesn't like taking it. Will decrease to the 145mcg dose. Constipation guidelines. Discussed diet, exercise. Refer to GI - she saw Dr. Squires at [facility] for her colonoscopy which was done in 2021 and was negative with exception of polyps with rec. 5 year f/u. Chronic fatigue 10/02/2022 Assessment & Plan (10/03/2023 10:55 AM CLEANER AND PREPARER): Her mental health nurse practitioner just did a panel of labs. Thyroid was little off. We will also make changes to her blood pressure medication. Also notable was her alkaline phosphatase which was a little elevated again. She has not had a workup for this. Will recheck the alkaline phosphatase with a GGT and consider a ultrasound of her liver in 3 months. Fatigue may be medication or diet related Assessment & Plan (10/02/2022 9:53 AM CLEANER AND PREPARER): Encouraged her to talk to her psychiatrist which she has recently established with here in [place] about Remeron if that could be making her tired, and also will refer to Sleep Medicine or pulmonology about CPAP management to see if settings need to be changed. I also talked her about increasing activity during the day. Patient is not currently working and she states sometimes she goes to bed around 5 or 7 because there is nothing else to do. She then lays there for a few hours until she falls asleep around 9. She then sleeps in the morning until around 9:00 a.m.. She generally watches TV during the day. I encouraged her to find activities to do during the day if that includes volunteering for 1-2 hours or getting some exercise. Her and her talked about going back to the gym. Apparently they were swimming until the pull closed temporarily and I encouraged them to get back to that activity. Sciatica of left side 07/05/2022 Assessment & Plan (07/05/2022 3:22 PM CDT): Images from the original note were not included. HPI: Condition is worsening A&P: Discussed/ordered labs, encouraged healthy, low carbohydrate lifestyle and at least 150min/week of exercise, Take all prednisone-side effects: kennedy, grouchy, hungry and may make it hard to sleep so please take it first thing in the morning with food. Alternate ice/heat Do stretching exercises 3 times a day 5 days a week Take all prednisone-side effects: kennedy, grouchy, hungry and may make it hard to sleep so please take it first thing in the morning with food. Alternate ice/heat Do stretching exercises 3 times a day 5 days a week Patient Education Sciatica WHAT YOU NEED TO KNOW: What is sciatica? Sciatica is a condition that causes pain along your sciatic nerve. The sciatic nerve runs from your spine through both sides of your buttocks. It then runs down the back of your thigh, into your lower leg and foot. Any place along your sciatic nerve may be compressed, inflamed, irritated, or stretched and cause symptoms. What causes sciatica? Sciatica may be related to certain activities, poor posture, and physical or psychological stress. Any of the following may cause or increase your risk of sciatica: Disc problems: A slipped disc (soft cushion in between the bones of the spine) is the most common cause of sciatica. The disc may press on the sciatic nerve. One bone in your spine may slip over another, or you may have narrowing of the spinal column. Muscle injury: This may happen after you twist or lift a heavy object. Swelling from sprained or irritated muscles in the buttocks, thighs, or legs press on the sciatic nerve. Obesity or : Extra weight increases pressure on your back and legs. Trauma: Direct blows on the buttocks, thighs, or legs, car accidents, or falls may injure the sciatic nerve. Diseases of the spine: Arthritis, osteoporosis, cancer, or infection of the spine may also affect the sciatic nerve. What are the signs and symptoms of sciatica? The symptoms of sciatic may be short-term or long-term: Pain that goes from the lower back into your buttocks and down the back of your thigh Numbness or tingling in your buttocks and legs Muscle weakness, difficulty moving or controlling your leg or foot Leg pain that increases with standing, sitting, or squatting How is sciatica diagnosed? Your healthcare provider will ask about other health conditions you may have. He may ask you about your job, history of back pain, diseases, or surgeries you have had. He will examine you and move your legs to see what increases pain. You may also need any of the following: X-rays: This is a picture of the bones and tissues in your back, hip, thigh, or leg. This test may show other problems, such as fractures (broken bones). CT scan: This test is also called a CAT scan. An x-ray machine uses a computer to take pictures of your hips, thighs, and legs. The pictures may show your sciatic nerve, muscles, and blood vessels. You may be given a dye before the pictures are taken to help healthcare providers see the pictures better. Tell the healthcare provider if you have ever had an allergic reaction to contrast dye. MRI: This scan uses powerful magnets and a computer to take pictures of your hips, thighs, and legs. An MRI may show damaged nerves, muscles, bones, and blood vessels. You may be given dye to help the pictures show up better. Tell the healthcare provider if you have ever had an allergic reaction to contrast dye. Do not enter the MRI room with anything metal. Metal can cause serious injury. Tell the healthcare provider if you have any metal in or on your body. An electromyography (EMG) test measures the electrical activity of your muscles at rest and with movement. Nerve conduction tests: These tests check how surface nerves and related muscles respond to stimulation. Electrodes with wires or tiny needles are placed on certain areas, such as the buttocks and legs. How is sciatica treated? NSAIDs: These medicines decrease swelling and pain. NSAIDs are available without a doctor's order. Ask your healthcare provider which medicine is right for you. Ask how much to take and when to take it. Take as directed. NSAIDs can cause stomach bleeding or kidney problems if not taken correctly. Acetaminophen: This medicine decreases pain. Acetaminophen is available without a doctor's order. Ask how much to take and how often to take it. Follow directions. Acetaminophen can cause liver damage if not taken correctly. Muscle relaxers help decrease pain and muscle spasms. Epidural steroid medicine: This may include both an anesthetic (numbing medicine) and a steroid, which may decrease swelling and relieve pain. It is given as a shot close to the spine in the area where you have pain. Chemonucleolysis: This is an injection given into the damaged disc to soften or shrink the disc. Surgery: This may be done to correct problems such as a damaged disc, or a tumor in your spine. It may be done to decrease the pressure on the sciatic nerve. Healthcare providers may also release the muscle that may be pressing into your sciatic nerve. How can I help manage sciatica? Ultrasound therapy: This is a machine that uses sound waves to decrease pain. Topical medicines may be added to help decrease pain and inflammation. Physical therapy: A physical therapist teaches you exercises to help improve movement and strength, and to decrease pain. An occupational therapist teaches you skills to help with your daily activities. Assistive devices: You may need to wear back support, such as a back brace. You may need crutches, a cane, or a walker to decrease stress on your lower back and leg muscles. Ask your healthcare provider for more information about assistive devices and how to use them correctly. How can sciatica be prevented? Avoid pressure on your back and legs: Do not lift heavy objects, or stand or sit for long periods of time. Lift objects safely: Keep your back straight and bend your knees when you brass pickler an object. Do not bend or twist your back when you lift. Maintain a healthy weight: Ask your healthcare provider how much you should weigh. Ask him to help you create a weight loss plan if you are overweight. Exercise: Ask your healthcare provider about the best stretching, warmup, and exercise plan for you. What are the risks of sciatica? An epidural steroid injection can lead to pain disorders or paralysis if it is placed incorrectly. It may also cause headaches, leg pain, and blockage of blood flow to the spinal cord. Surgery may cause you to bleed or get an infection. If not treated, your muscles and nerves may become damaged permanently. You may have decreased strength. You may not be able to move your leg or control when you urinate or have bowel movements. When should I contact my healthcare provider? You have pain in your lower back at night or when resting. You have pain in your lower back with numbness below the knee. You have weakness in one leg only. You have questions or concerns about your condition or care. When should I seek immediate care or call 911? You have trouble holding back your urine or bowel movements. You have weakness in both legs. You have numbness in your groin or buttocks. CARE AGREEMENT: You have the right to help plan your care. Learn about your health condition and how it may be treated. Discuss treatment options with your caregivers to decide what care you want to receive. You always have the right to refuse treatment. The above information is an medication aid only. It is not intended as medical advice for individual conditions or treatments. Talk to your doctor, nurse or pharmacist before following any medical regimen to see if it is safe and effective for you. 2017 [employer] Information is for End User's use only and may not be sold, redistributed or otherwise used for commercial purposes. All illustrations and images included in CareNotes are the copyrighted property of [employer] or [employer]. Patient Education Iliotibial Band Syndrome Exercises PROFESSOR OF PSYCHIATRY: Iliotibial band syndrome (ITBS) , also known as runner's knee, happens when your iliotibial band (ITB) becomes injured and causes pain. The ITB is a long band of tissue. It extends from the outside of your pelvis (hip bone) to the outside of your tibia (mcdowell bone). It helps keeps the knee in the correct position when you stand or move. ITBS occurs most often in long distance runners and cyclists. Standing stretch: Stand with your injured leg behind your other leg. Cross your front leg over your injured leg. Bend sideways toward the hip that is not injured. Stop when you feel a stretch in the hip of your injured leg. Repeat on the other side. Lying stretch: Lie on your back. Bend the knee of your injured leg toward your chest. Place your hand on the outside of your thigh. Slowly pull your knee across your body. Stop when you feel a stretch in your hip and outside of your thigh. Repeat on the other side. Hip stretch: Lie on the ground. Place both hands on the mcdowell of 1 leg. Pull your knee toward your chest. Repeat on the other side. Standing quadriceps stretch: Stand and place one hand against a wall or hold the back of a chair for balance. With your weight on one leg, bend your other leg and grab your ankle. Pull your heel toward your buttocks. Sitting hamstring stretch: Sit with both legs straight in front of you. Place your palms on the floor and slide your hands forward until you feel the stretch. If possible, grab your toes. Do not round your back. Standing half squats: Stand with your feet shoulder-width apart. Lean your back against a wall or hold the back of a chair for balance, if needed. Slowly sit down about 10 inches, as if you are going to sit in a chair. Put most of your weight in your heels. Hold the squat for 5 seconds, then slowly rise to a standing position. Do 3 sets of 10 squats. Sitting leg lifts: Sit in a chair with both feet flat on the floor. Slowly straighten and raise one leg. Squeeze your thigh muscles and hold for 5 seconds. Relax and return your foot to the floor. Do 3 sets of 10 lifts on each leg. Single leg dips: Stand on your injured leg, between 2 chairs. The backs of the chairs should be toward you. Put 1 hand on each chair. Straighten your leg that is not injured and lift it off the floor. Use the chairs to hold some of your weight. Bend the knee of your injured leg. Slowly lower your body toward the floor a few inches. Your weight should be in your heel. Hold for 5 seconds. Slowly return to a standing position. Do 3 sets of 10 on each leg. Standing hamstring curls: Face a wall and place both palms flat on the wall. Instead you can hold the back of a chair for balance. With your weight on 1 leg, lift your other foot as close to your buttocks as you can. Hold for 5 seconds and then lower your leg. Do 3 sets of 10 curls on each leg. Hip adduction: Lie on your injured side. Cross your top leg over your injured leg. Put your foot on the floor in front of you. Raise your injured leg until it touches the other leg. Slowly lower the leg to the floor. Do 3 sets of 10 on each leg. Hip abduction: Lie on your side that is not injured. Straighten your legs. Slowly raise your injured leg as high as you can. Keep your foot pointing straight. Hold for 5 seconds then slowly lower your leg. Do 3 sets of 10 on each leg. Follow up with your healthcare provider as directed: Write down your questions so you remember to ask them during your visits. 2017 [employer] Information is for End User's use only and may not be sold, redistributed or otherwise used for commercial purposes. All illustrations and images included in CareNotes are the copyrighted property of [employer] or [employer]. The above information is an medication aid only. It is not intended as medical advice for individual conditions or treatments. Talk to your doctor, nurse or pharmacist before following any medical regimen to see if it is safe and effective for you. Recurrent major depressive d isorder, in full remission ([facility] 06/28/2022 Assessment & Plan (10/09/2024 10:48 AM CLEANER AND PREPARER): -chronic, stable -patient currently takes wellbutrin 150 mg, vraylar 1.5 mg daily, hydroxyzine 10 b.I.d, Pristiq 100 mg daily -follows with psychiatry -patient denies any worsening of depressed mood, thoughts of harming herself or others, or worsening anxiety -continue current treatment plan Assessment & Plan (01/01/2024 7:57 PM CDT): Stable at this time. Managed by Psychiatry Assessment & Plan (03/31/2023 10:29 AM CDT): As above. Treated by psychiatry in [place], Jaz Tommy,MHNP, symptoms stable Assessment & Plan (06/28/2022 2:50 PM CDT): Long hx of. Had psychiatrist back home. Will refer back to psychiatrist. Agreed to prescribe psych. Medications for 6 months while establishing care. Bipolar 1 disorder 06/28/2022 Assessment & Plan (10/09/2024 10:48 AM CLEANER AND PREPARER): -chronic, stable -patient currently takes wellbutrin 150 mg, vraylar 1.5 mg daily, hydroxyzine 10 b.I.d, Pristiq 100 mg daily -follows with psychiatry -patient denies any worsening of depressed mood, thoughts of harming herself or others, or worsening anxiety -continue current treatment plan Assessment & Plan (04/16/2024 10:56 AM CDT): Stable at this time. Managed by Psychiatry Assessment & Plan (01/01/2024 7:59 PM CDT): Stable at this time. Managed by Psychiatry Assessment & Plan (03/31/2023 10:24 AM CDT): Continues to see psychiatric orderly in [place]. Stable on vraylor and remeron. Buproprion, buspar, pristiq. Assessment & Plan (06/28/2022 2:51 PM CDT): On Vraylar 6mg. Agreed to prescribe for 6 months until establishes with psychiatry here. Mixed hyperlipidemia 06/28/2022 Assessment & Plan (10/09/2024 10:32 AM CLEANER AND PREPARER): -chronic, stable -currently takes lipitor 80 mg daily -Discussed importance of well-balanced diet -will recheck lab values at next visit -continue current treatment plan Assessment & Plan (04/16/2024 10:51 AM CDT): Lipid abnormalities are stable, reviewed previous lipid levels in [facility]. I reviewed current lipid panel with patient today Continue statin therapy. Lipitor (atorvastatin) emphasized lifestyle changes, keeping weight down. Order for lipid panel was given today to be obtained. Pt voiced understanding of lab drawn and continuation of current medication regimen. Assessment & Plan (10/03/2023 10:54 AM CLEANER AND PREPARER): Lipid abnormalities are stable. Pharmacotherapy as ordered. Lipids will be reassessed in 6 months. Assessment & Plan (03/31/2023 10:32 AM CDT): Lipid abnormalities are stable, reviewed previous lipid levels in [facility]. Pharmacotherapy as ordered. Pt voiced understanding of continuation of current medication regimen. Continue atorvastatin. Last lipid panel done last week. LDL 102 Assessment & Plan (10/02/2022 9:44 AM CLEANER AND PREPARER): Lipid abnormalities are stable, reviewed previous lipid levels in [facility]. Pharmacotherapy as ordered. Order for lipid panel was given today to be obtained. Pt voiced understanding of lab drawn and continuation of current medication regimen. Assessment & Plan (06/28/2022 2:52 PM CDT): Lipid abnormalities are stable, reviewed previous lipid levels in [facility]. Pharmacotherapy as ordered. Order for lipid panel was given today to be obtained. Pt voiced understanding of lab drawn and continuation of current medication regimen. Encounter for routine adult physical exam with abnormal findings 06/28/2022 Assessment & Plan (04/16/2024 10:56 AM CDT): -Recommended: Healthy, prudent diet. Avoiding junk food/fast food. -30 minutes of exercise most days of the week. Increase to 45 minutes for weight loss. -Mammogram every 1 year, starting at age 40; regular self breast & skin examinations -Periodic blood pressure monitoring, & bone-density testing (starting at age 65 in average-risk person) -Colonoscopy at age 45 and further colonoscopys pending GI recs. , alternative cologuard Up to date -Influenza vaccine every year recommended yearly Up to date, see immunization history -F/u in 1 year for Annual PE or sooner if needed -Labs reviewed with patient today Assessment & Plan (03/31/2023 10:37 AM CDT): -Recommended: Healthy, prudent diet. Avoiding junk food/fast food. -30 minutes of exercise most days of the week. Increase to 45 minutes for weight loss. -Mammogram every 1 year, starting at age 40; regular self breast & skin examinations (1 week after cycle begins) -Regular gynecologic examinations with pelvic exam & PAP smear every 3-5 years if you have not had a hysterectomy (does notgynecologist), - has had hysterectomy, discontinued. -Periodic blood pressure monitoring, & bone-density testing (starting at age 65 in average-risk person) -Colonoscopy at age 45 and further colonoscopys pending GI recs. , alternative cologuard Up to date -Influenza vaccine every year recommended yearly Up to date, see immunization history -F/u in 1 year for Annual PE or sooner if needed -Labs as ordered Assessment & Plan (10/02/2022 9:50 AM CLEANER AND PREPARER): -Recommended: Healthy diet. Avoiding junk food/fast food. -30 minutes of exercise most days of the week. Increase to 45 minutes for weight loss. Immunizations: Up to date increase physical activity, follow low fat diet, routine labs ordered, call if any problems Follow-up in 1 year. Assessment & Plan (06/28/2022 2:54 PM CDT): Ordered routine labs. Mammogram order. Due for colonoscopy. F/u 3 months for physical exam. Updated influenza vaccine today. Note: Pt is on metoprolol for possibly a fast heart rate . Denies having a hx of hypertension. I cannot find anything in [facility] records available why she is on it. Will ask for previous pcp records to determine why she is on metoprolol. Will continue current dose. F/u 3 months Nasal septal deviation 05/16/2019 Disc degeneration, lumbar 07/27/2018 Fusion of spine, thoracic region 07/27/2018 Lumbar spondylosis 07/27/2018 COPD (chronic obstructive pulmonary disease) Assessment & Plan (01/01/2024 7:58 PM CDT): Quit smoking in 2020. Managed by pulmonology. Currently on Advair. She rarely uses albuterol. Condition is stable Assessment & Plan (03/31/2023 10:31 AM CDT): Pt quit smoking 2 years ago. She sees pulmonology for hx of copd. Currently on advair diskus 250. She believes symptoms are controlled. Hardly ever uses albuterol inhaler. Assessment & Plan (06/28/2022 2:49 PM CDT): Is not currently treated. 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 Will refer back to pulmonology here for re-evaluation. Pt still has dyspnea with exertion, but has not been on any inhalers for some time. Has quit smoking Assessment & Plan (06/28/2018 2:34 PM CDT): Sx are consistent with COPD. Unfortunately, continues to smoke Recs: 1) Continue stiolto, flovent, albuterol 2) Tobacco cessation counseling performed 3) Stay active and stay uptodate with influenza and pneumococcal vaccination Assessment & Plan (11/23/2017 12:33 PM CLEANER AND PREPARER): Sx are consistent with COPD. Stopped smoking 3 weeks ago. Recs: 1) Continue stiolto, flovent, albuterol 2) Complete PFT's before next visit 3) Stay active and stay uptodate with influenza and pneumococcal vaccination Resolved Problems Problem Noted Date Diagnosed Date Resolved Date Thrush, oral 12/30/2023 04/16/2024 Assessment & Plan (12/30/2023 10:55 AM CDT): On adviar. Will start nystatin swish and swallow x 14 days Morbid (severe) obesity due to excess calories 03/04/2023 03/31/2023 Cyst of left breast 09/16/2022 03/31/20 23 KRISHNA on CPAP 06/28/2022 01/23/2024 Assessment & Plan (10/03/2023 10:55 AM CLEANER AND PREPARER): Patient follows with sleep Medicine, Dr. Aguiar and wears a CPAP Assessment & Plan (03/31/2023 10:33 AM CDT): Compliant with cpap, but feels like it doesn't do much good. Just had sleep study repeated. Going to see sleep medicine tomorrow again to discuss results. Assessment & Plan (10/02/2022 9:48 AM CLEANER AND PREPARER): Patient just started using her CPAP full-time again. She is had difficulty in the past using the fullface mask. She has not noticed a whole lot of difference in fatigue even though she is made an effort into using the CPAP. She thinks the CPAP is 2 or 3 years old but has not had any monitoring since then.(patient has moved from [place]). I will see if pulmonology wants to take over management of the CPAP or if I need to refer her back to Sleep Medicine here Class 2 obesity with body ma ss index (BMI) of 39.0 to 39.9 in adult 06/28/2022 03/31/2023 Assessment & Plan (10/13/2022 8:35 PM CLEANER AND PREPARER): BMI Follow-up includes: exercise counseling. Assessment & Plan (07/05/2022 2:38 PM CDT): HPI: Condition is not at/near goal goal BMI <30 A&P: Healthy, high-protein, lower carbohydrate, lower fat lifestyle and exercise for 150min/week recommended Recommend tracking everything you put in your mouth on an damian like [employer] Lower carb substitutions: [employer] carries a zero net carb bread If you are looking for whole potatoes, like to use in soup or new potato shape/flavor, radishes are a great replacement If you are looking for mashed potatoes, riced cauliflower in the frozen bag section are a great replacement For pasta, try using zucchini noodles, lay them out on a cookie sheet and pat dry with a tea towel to try to remove as much moisture as possible. Heat your pasta sauce on the stove and put the noodles in for 30-45 seconds. If you leave them in much longer they will become mushy [place] and/or coconut flour instead of regular flour For pizza dough, try fathead pizza dough recipe online. To get a crispy crust, bake on one side for 8-12 min, then flip over and bake on the other side for 8-12 min, then put toppings on and bake until the cheese on top of pizza melts chaffkody recipe online For ice cream, try the brand Enlightened To replace coffee creamer and make it low carb, use heavy creamer with sugar free Torani sweetener For chips, try Whisps or pork rinds For yogurt, try Two Good chinese yogurt Use [employer] for recipe ideas. Type in low carb... Hand Measurements: A fist or cupped hand = 1 cup 1 cup = 1 -2 servings of fruit juice 1 oz. of cold cereal 2 oz. of cooked cereal, rice or pasta 8 oz. of milk or yogurt A thumb = 1 oz. of cheese Consuming low-fat cheese helps you meet the required servings from the milk, yogurt and cheese group. 1 oz. of low-fat cheese counts as 8 oz. of milk or yogurt. Handful = 1-2 oz. of snack food Thumb tip = 1 teaspoon Keep high-fat foods, such as peanut butter and mayonnaise, at a minimum. One teaspoon is equal to the end of your thumb, from the knuckle up. Three teaspoons equals 1 tablespoon. Palm = 3 oz. of meat Choose lean poultry, fish, shellfish and beef. One palm size portion equals 3 oz. for an adult and 1 -2 oz. for a child under 5. 1 tennis ball or a fist= 1/2 cup of fruit and vegetables Healthy diets include a variety of colorful fruits and vegetables every day. The secret to serving size is in your hand. Snacking can add up. Remember, 1 handful equals 1 oz. of nuts and small candies. For chips and pretzels, 2 handfuls equals 1 oz. Because hand sizes vary, compare your fist size to an actual measuring cup. Assessment & Plan (06/28/2022 2:55 PM CDT): BMI Follow-up includes: exercise counseling. Cognitive change 07/29/2020 03/31/2023 Tarlov cyst 07/27/2018 03/31/2023 Chronic pulmonary embolism 12/08/2017 0 01/01/2024 Assessment & Plan (03/31/2023 10:23 AM CDT): At [facility]. After foot surgery. She was on eliquis for 6 months and then discontinued. Assessment & Plan (06/28/2022 2:51 PM CDT): Hx of after surgery in 2018. Was on eliquis for 6 months and discontinued. VTE (venous thromboembolism) 11/23/2017 03/31/2023 Assessment & Plan (06/28/2018 2:34 PM CDT): Provoked pulmonary embolism. No clear evidence of acute cor pulmonale Recs: 1) Completed 6 months of eliquis. Risk of recurrence off anticoagulation discussed with Ms. Callahan. Ok to stop anticoagulation at this time Assessment & Plan (11/23/2017 12:32 PM CLEANER AND PREPARER): Provoked pulmonary embolism. No clear evidence of acute cor pulmonale Recs: 1) Continue eliquis for 6 months 2) Ok to return to work. Dyspnea on exertion 10/03/19 24 Assessment & Plan (03/31/2023 10:29 AM CDT): Pt complains of dyspnea on exertion due to her weight Immunizations Immunization Administration Dates Next Due Influenza, Quadrivalent, Spl it, Preservative Free, Intramuscular 10/03/2023,06/28/2022,06/28/2019,07/24,06/29/2017 Influenza, Trivalent, Preser vative Free, Intramuscular 07/25/2015 Influenza, Unspecified 07/17/2024,2022(Deferred: Patient Refused),11/25/2021(Deferred: Patient Refused),06/28/2019,07/24/2018 Pfizer SARS-CoV-2 Monovalent Vaccination (12+ Yrs) PURPLE 05/13/2021,04/14/2021 Pneumococcal Conjugate Pcv20 10/13/2022 Pneumococcal Polysaccharide PPV23 07/24/2018 Sars-CoV-2, Unspecified 05/13/2021,04/14/2021 Tdap 07/05/2022 Social History Tobacco Use Types Packs/Day Years Used Date Smoking Tobacco: Former Cigarettes 1 35 1 987 - 2 Smokeless Tobacco: Never Tobacco Cessation:Counseling Given: Not Answered Alcohol Use Standard Drinks/Week Comments No 0 (1 standard drink = 0.6 oz pur e alcohol) AUDIT-C Answer Date Recorded Q1: How often do you have a drink containing alcohol? Never 10/09/2024 Q2: How many drinks containi ng alcohol do you have on a typical day when you are drinking? Patient does not drink Q3: How often do you have si x or more drinks on one occasion? Never 10/09/2024 PHQ-2 Answer Date Recorded PHQ-2 Total Score 2 10/09/2024 Comments No Sex and Gender Information Value Date Recorded Sex Assigned at Not on file Legal Sex Female 6:44 PM CLEANER AND PREPARER Gender Identity Female 04/04/2022 5:01 PM CDT Sexual Orientation Straight 06/20/2024 1: 12 PM CDT Last Filed Vital Signs Vital Sign Reading Time Taken Comments Blood Pressure 102/70 10/17/2024 8:28 AM CLEANER AND PREPARER Pulse 85 10/17/2024 8:28 AM CLEANER AND PREPARER Temperature 36.3 C (97.3 F) 10/17/2024 8:28 AM CLEANER AND PREPARER Respiratory Rate 16 10/09/2024 10:1 9 AM CLEANER AND PREPARER Oxygen Saturation 97% 10/17/2024 8:28 AM CLEANER AND PREPARER Inhaled Oxygen Concentration - - Weight 124.1 kg (273 lb 9.6 oz) 10/17/2024 8:28 AM CLEANER AND PREPARER Height 170.2 cm (5' 7 ) 10/17/2024 8:28 AM CLEANER AND PREPARER Body Mass Index 42.85 10/17/2024 8:28 AM CLEANER AND PREPARER Plan of Treatment Not on file Procedures Procedure Name Priority Date/Time Associated Diagnosis Comments T4, FREE Routine 10/25/2024 11:37 AM CLEANER AND PREPARER Acquired hypothyroidism TSH Routine 10/25/2024 11:37 AM CLEANER AND PREPARER Acquired hypothyroidism SCREENING MAMMOGRAM BILATERAL W JACKY Schedule Routine, Read Routine (OP Routine) 10/08/2024 8:57 AM CLEANER AND PREPARER Screening mammogram, encounter for PSG (SIMPLE) Routine 08/28/2024 KRISHNA (obstructive sleep apnea) HEPATITIS C ANTIBODY Routine 04/12/2024 9:35 AM CDT Encounter for hepatitis C screening test for low risk patient COLONOSCOPY Routine 08/04/2022 from Last 3 Months or Most Recently Relevant to Health Maintenance Results * TSH (10/25/2024 11:37 AM CLEANER AND PREPARER) Thyroid Stimulating Hormone 2.81 0.30 - 4.20 mcIUnit/mL Blood 10/25/2024 11:3 7 AM CLEANER AND PREPARER 10/25/2024 5:55 PM CLEANER AND PREPARER Yoly Rivera NP LAB BLOOD ORDERABLES Fi nal Result Performing Organization Address City/[facility]/ZIP Co de Phone Number CRIS STEVE [id number] [facility] [place] [address] * T4, free (10/25/2024 11:37 AM CLEANER AND PREPARER) Free T4 0.99 0.90 - 1.70 ng/dL Blood 10/25/2024 11:3 7 AM CLEANER AND PREPARER 10/25/2024 5:55 PM CLEANER AND PREPARER Yoly Rivera NP LAB BLOOD ORDERABLES Fi nal Result Performing Organization Address [facility] Co de Phone Number CRIS STEVE [id number] [facility] [place] [address] * Screening Mammogram Bilateral W Jacky (10/08/2024 8:57 AM CLEANER AND PREPARER) Anatomical Region Laterality Modality Breast Bilateral Mammography 10/08/2024 9:13 AM CLEANER AND PREPARER Impressions 10/08/2024 9:13 AM CLEANER AND PREPARER There is no mammographic evidence to suggest malignancy. The patient may continue screening mammography as per ACR guidelines. FINAL ASSESSMENT: BI-RADS Category 1: Negative. Electronically signed by: Maddi Mckinney M.D. Narrative 10/08/2024 9:13 AM CLEANER AND PREPARER EXAMINATION: BILATERAL SCREENING MAMMOGRAM WITH TOMOGRAPHY HISTORY: Screening. COMPARISON(S): 2023, multiple studies from 2021, and 2020. TECHNIQUE: Full-field 2D images and digital tomosynthesis images were obtained. CAD was utilized. BREAST PARENCHYMAL COMPOSITION: There are scattered areas of fibroglandular density. FINDINGS: There are no suspicious masses. No suspicious calcifications are seen. There is no unexplained architectural distortion. There is no skin thickening seen. There are no mammographically abnormal lymph nodes seen in the axillae or elsewhere. us Self Screening Mammogram IMG MAMMO PROCEDURES Fi nal Result * PSG (08/28/2024) Impressions Sangita Aguiar MD - 08/28/2024 BIPAP TITRATION History: Veronica Callahan is a 49 y.o. female who presents for a BiPAP titration study. Reason for sleep study: Obstructive sleep apnea, persistent hypersomnolence [place] sleepiness score: 15 Weight: 272 lbs BMI: 42.60 Procedure: This overnight PAP titration polysomnogram was performed with the interventional technologist in attendance. Patient is studied with multiple channel polysomnography to include EEG, sleep stage recording, cardio-respiratory monitoring, monitoring for limb movements as well as videotaping. Central, frontal, occipital and temporal EEG, bilateral EOG, submental EMG, oral and nasal airflow, thoracoabdominal motion, bilateral anterior tibialis EMG, one lead EKG, snore sensor, pulse oximetry and transcutaneous CO2 were monitored. Sleep stages, periodic limb movements, EEG arousals and respiratory events were scored according to the criteria from The [place] [employer] (AASM) Manual for the scoring of sleep and associated events - version 2.6. Positive airway pressure titration was done using bilevel positive airway pressure (BiPAP). Findings: Baseline parameters: Baseline heart=71/m, Oxygen saturation =96% Sleep architecture: Polysomnogram revealed total recording duration of 448.2 minutes and total sleep time of 268.05 minutes with sleep efficiency of 59.8%. Sleep onset latency was 44.21 minutes, and REM latency 95.5 minutes. N1 3.9%, N2 65.3%, N3 16.2% and REM 14.6% accounted for the total sleep time. EEG profile: EEG was reviewed. Snoring profile: The patient had moderate snoring. Snoring was not associated with arousals. PAP titration: BiPAP ST titration was started at 12/6 cm of water with a backup rate of 12 breaths per minute and incrementally increased to 22/18 cm of water with a backup rate of 12 breaths per minute. Sleep apnea was corrected at final BiPAP ST pressure of 22/18 cm of water with a backup rate of 12 breaths per minute where the AHI was 3.9, O2 saturations were in 92-96% and supine REM sleep was not studied. The patient reported no subjective change following PAP titration. TcCO2 data: Baseline TcCO2 was 47 mmHg and the maximum TcCO2 was 53 mmHg during the study. Limb movement profile: A total of 27 periodic limb movements were noted, of which 8 movements were associated with arousal. Total movement index was 6.0 per hour and movement with arousal index was 1.8 per hour. Parasomnia profile: No abnormal behavior to suggest parasomnia was noted. EKG analysis: revealed normal sinus rhythm. Interpretation and Recommendations: This overnight BiPAP ST titration study revealed: 1. Alleviation of obstructive sleep apnea at BiPAP ST pressure of 22/18 cm of water with a backup rate of 12 breaths per minute. 2. BiPAP ST pressure of 22/18 cm of water with a backup rate of 12 breaths per minute is recommended for use. 3. ResMed, air touch, F20, small, fullface mask was used during the titration. 4. Hypnotics, sedatives, and related medications have the potential of worsening the apnea and should be avoided. 5. Patients with sleep apnea may have significant daytime hypersomnolence. If that is the case, driving or handling heavy machinery should be avoided until the apnea and excessive sleepiness have resolved. 6. Weight loss for ideal body weight range is recommended 7. Prolonged sleep latency and reduced sleep efficiency: Patient has prolonged sleep onset latency of 44.21 minutes and reduced sleep efficiency of 59.8%. Factors like, psychiatric illness, insomnia or chronic pain may be contributory as well as poor sleep hygiene and/or daytime napping. Clinical correlation is recommended. MSLT was canceled due to need for higher pressure. Sangita Aguiar MD [facility] Sleep Medicine Narrative Sangita Aguiar MD - 08/28/2024 In lab study is ready for review us Sangita Aguiar MD [facility] ORDERABLES Final Re sult * Hepatitis C antibody Blood (04/12/2024 9:35 AM CDT) Hep C Ab Nonreactive Nonreactive Comment: Interpretive Data Nonreactive: Antibodies to HCV not detected. Does NOT exclude the possibility of recent exposure to HCV. Equivocal: Equivocal for HCV antibodies. Supplemental molecular testing will be automatically performed to determine infection status in accordance with current CDC screening recommendations. Reactive: Positive for HCV antibodies. This may represent current or past HCV infection. Supplemental molecular testing will be automatically performed to determine current infection status in accordance with current CDC screening recommendations. Interpretive data was last revised on 2019. Blood 04/12/2024 9:35 AM CDT 04/12/2024 5:02 PM CDT Marybeth Levine NP LAB MICROBIOLOGY - GENERAL ORDER ALISIA Final Result [facility] [id number] [address] Department of Laboratories [place] [phone] * Colonoscopy (08/04/2022) Anatomical Region Laterality Modality Other Impressions 08/04/2022 Repeat in 5 years Tila Bernal NP ENDOSCOPY PROCEDURES Final Resul t from Last 3 Months or Most Recently Relevant to Health Maintenance Insurance IDPA [employer] PPO IDPA 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 [place] [address] PCP - General Family Medicine 10/08/24 Stan Haq MD [address] [facility] [place] [address] Consulting Physician Pulmonary Disease 10/09/24 Sangita Aguiar MD [address] [facility] [place] [address] Consulting Physician Sleep Medicine 10/09/24 Damian Carrizales MD [address] [place] [address] [address] [place] [address] Consulting Physician Gastroenterology 10/09/24 Jaz Sanders NP [address] [place] [address] Nurse Practitioner Nurse Practitioner 10/09/24
--- OUTSIDE RECORDS SUMMARY | 2024-11-20 12:44 | XMS_ITS ---
Author Organization [facility] Address [address] [facility] [address] [place] [address] Care Team Providers Care Agricultural Engineering Technicians Name Role Phone Yoly Markham Primary Care Provider Un available Jaz Sanders Unavailable [phone] REASON FOR VISIT Pt cancelled this morning and was able to r/s thru [facility], do not bill (per Martha) Social History Sex Assigned At : Social History Observation Description Sex Assigned At Female Encounters Encounter Location Date Provider Diagnosis [facility] [address] [place] [address] 10/22/2024 Jaz Sanders Plan Of Treatment Next Appt Details Provider Name:Jaz Tommy , 02/04/2025 11:45:00 AM, [address], [facility] [address], [place], [address], Progress Notes * RUI GRIDERDOB:1975 ( 49 yo F)Acc No.[id number]:10/22/2024 Patient: RUI SELF Provider: POLLO GAINES :1975 A ge:49 Y S ex:Female Date:10/22/2024 Address:[address] [place] [address] [id number] Pcp:Yoly NICHOLS Subjective: * Chief Complaints: * 1 . Pt cancelled this morning and was able to r/s thru [facility], do not bill (per Martha). * Medical History: Objective: * Vitals: Assessment: Plan: * Treatment: * Billing Information: * Visit Code: * Procedure Codes: * CLEANER Sign off status: Completed true * Provider: POLLO GAINES Date: 0 10/22/2024 Generated for Camilo travis/Jocy/Janneth on: 0 11/20/2024 12:43 PM CONE CLEANER
--- OUTSIDE RECORDS SUMMARY | 2024-11-20 12:44 | XMS_ITS | Clinical Summary ---
Author Organization [email or web address] Address [address] [facility] [address] Care Team Providers Care Industrial Maintenance Mechanic Name Role Phone Tila Bernal JOSE [employer]-F[employer] D[employer]ER Primary Care Provider [phone] Source Comments [email or web address],non-owned Affiliates and Associated Physician Practices is amultiple site organization consisting of ambulatory clinics and hospital sitesin [place], [place] and [place]. This disclosure is being madepursuant to the Care Everywhere program and may not contain all information available regarding this patient. Last updated 18.[email or web address] Allergies No known active allergies Medications * Be aware that medications may not be up to date on this document. Alwaysverify current medications with the patient. Medication Sig Dispensed Refills Start Date End Date Status Ipratropium-Albuter ol (COMBIVENT RESPIMAT IN) Inhale 2 Puffs by mouth once daily 2.5mcg/2.5mcg per actuation Active atorvastatin (LIPITOR) 80 MG tablet Take 80 mg by mouth once daily 07/27/2021 Active buPROPion XL 24hr (WELLBUTRIN-XL) 300 MG tablet Take 300 mg by mouth every morning 07/27/2021 Active busPIRone (BUSPAR) 15 MG tablet Take 15 mg by mouth 2 times daily 07/27/2021 Active VRAYLAR 4.5 MG capsule Take 4.5 mg by mouth at bedtime 07/27/2021 Active desvenlafaxine succinate ER 24hr (PRISTIQ) 100 MG tablet TAKE 1 TABLET BY MOUTH ONCE DAILY WITH 50MG TO EQUAL 150MG 07/27/2021 Active fluticasone propionate (FLONASE) 50 MCG/ACT nasal spray USE 2 SPRAYS IN EACH NOSTRIL ONCE DAILY 07/27/2021 Active mirtazapine (REMERON) 15 MG tablet Take 7.5 mg by mouth at bedtime 07/27/2021 Active aspirin (ASPIRIN) 81 MG chew tablet Take 1 (one) tablet by mouth once daily 100 tablet 4 08/04/2021 Active metoprolol succinate XL 24hr (TOPROL XL) 50 MG tablet Take 1 (one) tablet by mouth once daily 90 tablet 4 11/24/2021 Active Active Problems Problem Noted Date Diagnosed Date Palpitations 08/04/2021 Diagnosis unknown 06/28/2017 Immunizations Name Administration Dates Next Due INFLUENZA VACCINE, QUADR. (F LUZONE; FLULAVAL; FLUARIX; AFLURIA QUADRIVALENT; 6MO+), 0.5 ML (IIV4) 06/29/2017 Social History Tobacco Use Types Packs/Day Years Used Date Smoking Tobacco: Every Day Cigarettes 0.5 40.2 Started: 1984 Smokeless Tobacco: Never Tobacco Cessation:Ready to Q uit: No; Counseling Given: Yes Alcohol Use Standard Drinks/Week Comments Yes 1 (1 standard drink = 0.6 oz pur e alcohol) 1 drink per week/seldom Sex and Gender Information Value Date Recorded Sex Assigned at Female 07/07/2021 10:25 AM CDT Gender Identity Female 07/07/2021 10:25 AM CDT Sexual Orientation Straight 07/07/2021 10 :25 AM CDT Last Filed Vital Signs Vital Sign Reading Time Taken Comments Blood Pressure 102/74 08/04/2021 8:48 AM GAME OPERATOR Pulse 99 08/04/2021 8:48 AM GAME OPERATOR Temperature 37.1 C (98.8 F) 06/29/2017 10:57 AM CDT Respiratory Rate 14 08/04/2021 8:48 AM GAME OPERATOR Oxygen Saturation 93% 06/29/2017 10:57 AM CDT Inhaled Oxygen Concentration - - Weight 108.4 kg (239 lb) 08/04/2021 8:48 AM GAME OPERATOR Height 166.4 cm (5' 5.5 ) 06/28/2017 6:37 AM CDT Body Mass Index 39.17 06/28/2017 6:37 AM CDT Plan of Treatment Health Maintenance Due Date Last Done Comments IRINEO (AGES 45-75) - COL ON CA SCREENING 1975 COLON MONITORING 1975 COLONOSCOPY - COLON CA SCREENING 1975 CT COLONOGRAPHY - COLON CA SCREENING 1975 Colorectal Cancer Screening 1975 FIT - COLON CA SCREENING 1975 FLEX SIG - COLON CA SCREENING 1975 MAMMOGRAM 1975 MEDICARE AWV 12 MONTHS 1975 PAP SMEAR 1975 HIV SCREENING 1990 HEPATITIS C SCREENING 03/12/1993 DTAP/TDAP/TD VACCINES (1 - Tdap) 1994 HEPATITIS B VACCINE (1 of 3 - 19+ 3-dose series) 1994 COVID-19 VACCINE (1 - 2023-2 5 season) 2024 INFLUENZA VACCINE (#1) 2024 9, 07/24/2018, 06/29/2017 DEPRESSION SCREENING 09/26/2024 ZOSTER VACCINE (1 of 2) 2025 HIB VACCINE Aged Out No longer eligi ble based on patient's age to complete this topic HPV VACCINE Aged Out No longer eligi ble based on patient's age to complete this topic MENINGOCOCCAL (Group B) VACCINE Aged Out No longer eligible b ased on patient's age to complete this topic MENINGOCOCCAL VACCINE Aged Out No ed sanya eligible based on patient's age to complete this topic Advance Directives * Full Code (Latest Code Status on File) Date Activated Date Inactivated Comments 06/28/2017 2:34 PM 06/29/2017 2:48 PM Care Teams Industrial Maintenance Mechanic Relationship Specialty Start Date End Date Tila Bernal APRN-CNP [facility] - General 08/16/22
--- OUTSIDE RECORDS SUMMARY | 2024-11-20 12:44 | XMS_ITS | Clinical Summary ---
Author Organization [facility] [address] [place] [address] rty Address [address] [place] [address] Care Team Providers Care Assessment Clinician Name Role Phone Yoly Rivera NP Primary Care Provider Stan Haq MD Unavailable Sangita Aguiar MD Unavailable Damian Carrizales MD Unavailable Jaz Sanders NP Unavailable [phone] Allergies Active Allergy Reactions Criticality Noted Date [...] 10/09/2024 Assessment & Plan (10/09/2024 10:50 AM PIPE FITTER WELDING): -chronic, not at goal -currently uses Benadryl [...] 01/23/2024 Assessment & Plan (10/09/2024 10:42 AM PIPE FITTER WELDING): -chronic, at goal -patient currently reports compliance with CPAP machine -denies any excessive fatigue or daytime sleepiness -continue current treatment plan Assessment & Plan (01/23/2024 1:11 PM CDT): Remain on BiPAP with all sleep We have discussed the risks of uncorrected sleep apnea Continue to follow the sleep medicine Moderate persistent asthma without complication 01/23/2024 Assessment & Plan (10/09/2024 10:49 AM PIPE FITTER WELDING): -chronic, stable -patient currently prescribed albuterol rescue [...] 10/03/2023 Assessment & Plan (10/09/2024 10:34 AM PIPE FITTER WELDING): BP Readings from Last 3 Encounters: 10/09/24 [...] ECG Assessment & Plan (10/03/2023 10:52 AM PIPE FITTER WELDING): Improving. Patient has been on metoprolol xl [...] 10/03/2023 Assessment & Plan (10/09/2024 10:35 AM PIPE FITTER WELDING): Lab Results Component Value Date HGBA1C 5.8 [...] down. Assessment & Plan (10/03/2023 10:54 AM PIPE FITTER WELDING): Stable. Patient has pre diabetes but not [...] 10/03/2023 Assessment & Plan (10/09/2024 10:48 AM PIPE FITTER WELDING): Lab Results Component Value Date TSH 2.69 04/12/2024 -chronic, controlled -patient currently takes Synthroid 50 mcg daily -most recent TSH within normal range -Will recheck TSH and T4 -continue current treatment plan Assessment & Plan (01/01/2024 8:09 PM CDT): TSH now within normal limits. Continue levothyroxine 50mcg daily. F/u 6 months Assessment & Plan (10/03/2023 10:56 AM PIPE FITTER WELDING): Will increase levothyroxine to 50 mcg daily based on her last TSH which was done last week. Will have her follow-up in 3 months with repeat TSH Stage 3a chronic kidney disease 10/03/2023 Assessment & Plan (10/09/2024 10:37 AM PIPE FITTER WELDING): Lab Results Component Value Date CREATININE 1.03 [...] monitor Assessment & Plan (10/03/2023 10:57 AM PIPE FITTER WELDING): Lab Results Component Value Date GFRNAA 55 [...] tomatoes, oranges, milk, dark melony and chocolate. [place] juice, citrus juices, and tomato juice are also high in potassium. Do not use salt substitutes, as they may contain potassium. Additional resources available online from the National Kidney Foundation at www.kidney.org/nutrition Labs are stable. Continue tight blood pressure control. Encouraged adequate fluid intake. Avoid nsaids. Will continue to monitor. Multiple lipomas 10/03/2023 Assessment & Plan (10/03/2023 10:58 AM PIPE FITTER WELDING): Has 3 lipomas. Most bothersome 1 is on her right inner thigh. Will send her to plastic surgery for evaluation of removal which patient is considering at this time Morbid obesity with BMI of 40.0-44.9, adult 05/2023 Assessment & Plan (10/09/2024 10:46 AM PIPE FITTER WELDING): Wt Readings from Last 3 Encounters: 10/09/24 [...] counseling. Assessment & Plan (10/03/2023 10:54 AM PIPE FITTER WELDING): BMI Follow-up includes: nutrition counseling and exercise [...] script Assessment & Plan (10/13/2022 8:02 AM PIPE FITTER WELDING): linzess 290 helps but causes diarrhea, doesn't like taking it. Will decrease to the 145mcg dose. Constipation guidelines. Discussed diet, exercise. Refer to GI - she saw Dr. Squires at [facility] for her colonoscopy which was done in 2021 and was negative with exception of polyps with rec. 5 year f/u. Chronic fatigue 10/02/2022 Assessment & Plan (10/03/2023 10:55 AM PIPE FITTER WELDING): Her mental health nurse practitioner just did [...] related Assessment & Plan (10/02/2022 9:53 AM PIPE FITTER WELDING): Encouraged her to talk to her psychiatrist which she has recently established with here in [place] about Remeron if that could be making [...] straight and bend your knees when you fruit or nut picker an object. Do not bend or twist [...] refuse treatment. The above information is an maid supervisor only. It is not intended as medical advice for individual conditions or treatments. Talk to your doctor, nurse or pharmacist before following any medical regimen to see if it is safe and effective for you. 2017 Al Detal Information is for End User's use only and may not be sold, redistributed or otherwise used for commercial purposes. All illustrations and images included in CareNotes are the copyrighted property of [employer]. or Ep[employer]encial. Patient Education Iliotibial Band Syndrome Exercises CRIPPLE CHASER: Iliotibial band syndrome (ITBS) , also known [...] to ask them during your visits. 2017 Al Detal Information is for End User's use only and may not be sold, redistributed or otherwise used for commercial purposes. All illustrations and images included in CareNotes are the copyrighted property of A.D.A.M., Inc. or Episencial. The above information is an maid supervisor only. It is not intended as medical advice for individual conditions or treatments. Talk to your doctor, nurse or pharmacist before following any medical regimen to see if it is safe and effective for you. Recurrent major depressive d isorder, in full remission ([facility]) 06/28/2022 Assessment & Plan (10/09/2024 10:48 AM PIPE FITTER WELDING): -chronic, stable -patient currently takes wellbutrin 150 [...] CDT): As above. [place] stable Assessment & Plan (06/28/2022 2:50 PM CDT): Long hx of. Had psychiatrist back home. Will refer back to psychiatrist. Agreed to prescribe psych. Medications for 6 months while establishing care. Bipolar 1 disorder 06/28/2022 Assessment & Plan (10/09/2024 10:48 AM PIPE FITTER WELDING): -chronic, stable -patient currently takes wellbutrin 150 [...] (03/31/2023 10:24 AM CDT): Continues to see psychological tests sales agent in [place]. Stable on vraylor and remeron. Buproprion, buspar, pristiq. Assessment & Plan (06/28/2022 2:51 PM CDT): On Vraylar 6mg. Agreed to prescribe for 6 months until establishes with psychiatry here. Mixed hyperlipidemia 06/28/2022 Assessment & Plan (10/09/2024 10:32 AM PIPE FITTER WELDING): -chronic, stable -currently takes lipitor 80 mg daily -Discussed importance of well-balanced diet -will recheck lab values at next visit -continue current treatment plan Assessment & Plan (04/16/2024 10:51 AM CDT): Lipid abnormalities are stable, reviewed previous lipid levels in [facility]. I reviewed current lipid panel with patient today Continue statin therapy. Lipitor (atorvastatin) emphasized lifestyle changes, keeping weight down. Order for lipid panel was given today to be obtained. Pt voiced understanding of lab drawn and continuation of current medication regimen. Assessment & Plan (10/03/2023 10:54 AM PIPE FITTER WELDING): Lipid abnormalities are stable. Pharmacotherapy as ordered. Lipids will be reassessed in 6 months. Assessment & Plan (03/31/2023 10:32 AM CDT): Lipid abnormalities are stable, reviewed previous lipid levels in [facility]. Pharmacotherapy as ordered. Pt voiced understanding of continuation of current medication regimen. Continue atorvastatin. Last lipid panel done last week. LDL 102 Assessment & Plan (10/02/2022 9:44 AM PIPE FITTER WELDING): Lipid abnormalities are stable, reviewed previous lipid levels in [facility]. Pharmacotherapy as ordered. Order for lipid panel was given today to be obtained. Pt voiced understanding of lab drawn and continuation of current medication regimen. Assessment & Plan (06/28/2022 2:52 PM CDT): Lipid abnormalities are stable, reviewed previous lipid levels in [facility]. Pharmacotherapy as ordered. Order for lipid panel [...] ordered Assessment & Plan (10/02/2022 9:50 AM PIPE FITTER WELDING): -Recommended: Healthy diet. Avoiding junk food/fast food. [...] of hypertension. I cannot find anything in [facility] records available why she is on it. [...] not currently treated. Has notes from previous [facility] [address] [facility] from 2018. Will refer back to pulmonology [...] vaccination Assessment & Plan (11/23/2017 12:33 PM PIPE FITTER WELDING): Sx are consistent with COPD. Stopped smoking [...] 01/23/2024 Assessment & Plan (10/03/2023 10:55 AM PIPE FITTER WELDING): Patient follows with sleep Medicine, Dr. Aguiar and wears a CPAP Assessment & Plan (03/31/2023 10:33 AM CDT): Compliant with cpap, but feels like it doesn't do much good. Just had sleep study repeated. Going to see sleep medicine tomorrow again to discuss results. Assessment & Plan (10/02/2022 9:48 AM PIPE FITTER WELDING): Patient just started using her CPAP full-time again. She is had difficulty in the past using the fullface mask. She has not noticed a whole lot of difference in fatigue even though she is made an effort into using the CPAP. She thinks the CPAP is 2 or 3 years old but has not had any monitoring since then.(patient has moved from [place]). I will see if pulmonology wants to take over management of the CPAP or if I need to refer her back to Sleep Medicine here Class 2 obesity with body ma ss index (BMI) of 39.0 to 39.9 in adult 06/28/2022 03/31/2023 Assessment & Plan (10/13/2022 8:35 PM PIPE FITTER WELDING): BMI Follow-up includes: exercise counseling. Assessment & Plan (07/05/2022 2:38 PM CDT): HPI: Condition is not at/near goal goal BMI <30 A&P: Healthy, high-protein, lower carbohydrate, lower fat lifestyle and exercise for 150min/week recommended Recommend tracking everything you put in your mouth on an damian like Vendly Lower carb substitutions: Keaton carries a zero net carb bread If [...] in much longer they will become mushy [place] and/or coconut flour instead of regular flour For pizza dough, try fathead pizza dough recipe online. To get a crispy crust, bake on one side for 8-12 min, then flip over and bake on the other side for 8-12 min, then put toppings on and bake until the cheese on top of pizza melts chaffles recipe online For ice cream, try the brand Enlightened To replace coffee creamer and make it low carb, use heavy creamer with sugar free Torani sweetener For chips, try Whisps or pork rinds For yogurt, try Two Good hebrew yogurt Use Nile for recipe ideas. Type [...] & Plan (03/31/2023 10:23 AM CDT): At [facility]. After foot surgery. She was on eliquis [...] time Assessment & Plan (11/23/2017 12:32 PM PIPE FITTER WELDING): Provoked pulmonary embolism. No clear evidence of acute cor pulmonale Recs: 1) Continue eliquis for 6 months 2) Ok to return to work. Dyspnea on exertion 10/03/19 24 Assessment & Plan (03/31/2023 10:29 AM CDT): Pt complains of dyspnea on exertion due to her weight Encounters Date Type Department Care Team Description 10/25/2024 11:32 AM PIPE FITTER WELDING - 10/25/2024 11:59 PM PIPE FITTER WELDING Hospital Encounter [address] [address] Acquired hypothyroidism Discharge Disposition: Discharge to home or self care 10/25/2024 11:30 AM PIPE FITTER WELDING Lab [facility] Outpatient Lab at [address] [phone] Mixed hyperlipidemia (Primary Dx) 10/17/2024 8:45 AM PIPE FITTER WELDING Office Visit [facility] Pulmonary at [address] [place] [phone] Stan Haq MD Cigarette nicotine dependence in remission (Primary Dx); Moderate persistent asthma without complication; Obstructive sleep apnea; Class 3 severe obesity due to excess calories without serious comorbidity with body mass index (BMI) of 40.0 to 44.9 in adult ([facility]) 10/09/2024 10:00 AM PIPE FITTER WELDING Office Visit [facility] Primary Care at [address] [place] [address] Yoly Rivera NP Establishing care with new doctor, encounter for (Primary Dx); Hypertension, essential; Mixed hyperlipidemia; Prediabetes; Acquired hypothyroidism; Stage 3a chronic kidney disease (HCC); Environmental and seasonal allergies; Bipolar 1 disorder ([facility]); Recurrent major depressive disorder, in full remission (CMS/HCC) ([facility]); Moderate persistent asthma without complication; KRISHNA (obstructive sleep apnea); Morbid obesity with BMI of 40.0-44.9, adult ([facility]) 10/08/2024 8:44 AM PIPE FITTER WELDING - 10/08/2024 11:59 PM PIPE FITTER WELDING Hospital Encounter [facility] [address] [place] [address] Screening mammogram, encounter for Discharge Disposition: Discharge to home or self care 08/29/2024 9:30 AM PIPE FITTER WELDING Office Visit [facility] Sleep Medicine at [address] [place] [phone] Sangita Aguiar MD KRISHNA (obstructive sleep apnea) (Primary Dx); Treatment-emergent central sleep apnea; Hypersomnia; Obesity, unspecified class, unspecified obesity type, unspecified whether serious comorbidity present 08/27/2024 7:00 PM PIPE FITTER WELDING - 08/27/2024 11:59 PM PIPE FITTER WELDING Hospital Encounter [facility] [address] [place] [address] KRISHNA (obstructive sleep apnea) Discharge Disposition: Discharge to home or self care from Last 3 Months Immunizations Immunization Administration Dates Next Due Influenza, Quadrivalent, Spl it, Preservative Free, Intramuscular 10/03/2023,06/28/2022,06/28/2019,07/24,06/29/2017 Influenza, Trivalent, Preser vative Free, Intramuscular 07/25/2015 Influenza, Unspecified 07/17/2024,2022(Deferred: Patient Refused),11/25/2021(Deferred: Patient Refused),06/28/2019,07/24/2018 Pfizer SARS-CoV-2 Monovalent Vaccination (12+ Yrs) PURPLE 05/13/2021,04/14/2021 Pneumococcal Conjugate Pcv20 10/13/2022 Pneumococcal Polysaccharide PPV23 07/24/2018 Sars-CoV-2, Unspecified 05/13/2021,04/14/2021 Tdap 07/05/2022 Surgical History Surgery Date Site/Laterality Comments GALLBLADDER SURGERY 09/26/2008 - 09/25/2009 HYSTERECTOMY FOOT SURGERY 09/26/2017 - 10/26/2017 Bilateral PARATHYROIDECTOMY 06/26/2017 - 07/26/2017 FOREARM FRACTURE SURGERY 09/26/2007 - 09/25/2008 DENTAL SURGERY 2023, multiple - denture repair Medical History Medical History Date Comments Asthma Anxiety Depression Hyperlipidemia COPD (chronic obstructive pulmonary disease) (HC C) VTE (venous thromboembolism) 11/23/2017 Chronic pulmonary embolism (HCC) 12/08/2017 Obstructive sleep apnea 01/23/2024 Family History Medical History Relation Name Comments COPD Father Diabetes Father Heart disease Father Hypertension Father Throat cancer Father's Sister No Known Problems Maternal Grandfather Mental illness Maternal Grandmother Asthma Mother Emphysema Mother Heart disease Mother Hypertension Mother Lung disease Mother No Known Problems Paternal Grandfather No Known Problems Paternal Grandmother Breast cancer Neg Hx Ovarian cancer Neg Hx Thyroid cancer Neg Hx Relation Name Status Comments Father Father's Sister Maternal Grandfather Maternal Grandmother Mother Paternal Grandfather Paternal Grandmother Social History Tobacco Use Types Packs/Day Years Used Date Smoking Tobacco: Former Cigarettes 1 35 1 7 - 2021 Smokeless Tobacco: Never Tobacco Cessation:Counseling Given: Not [...] on file Legal Sex Female 6:44 PM PIPE FITTER WELDING Gender Identity Female 04/04/2022 5:01 PM CDT Sexual Orientation Straight 06/20/2024 1: 12 PM CDT Obstetrics History Para Term AB IAB SAB Ectopic Multiple Livin g Live Births 2 2 2 Date Outcome GA Total Labor Labor/2nd/3rd Weight Sex Type Anes PTL Shruthi A1 A5 Name Clin Term Term Last Filed Vital Signs Vital Sign Reading Time Taken Comments Blood Pressure 102/70 10/17/2024 8:28 AM PIPE FITTER WELDING Pulse 85 10/17/2024 8:28 AM PIPE FITTER WELDING Temperature 36.3 C (97.3 F) 10/17/2024 8:28 AM PIPE FITTER WELDING Respiratory Rate 16 10/09/2024 10:1 9 AM PIPE FITTER WELDING Oxygen Saturation 97% 10/17/2024 8:28 AM PIPE FITTER WELDING Inhaled Oxygen Concentration - - Weight 124.1 kg (273 lb 9.6 oz) 10/17/2024 8:28 AM PIPE FITTER WELDING Height 170.2 cm (5' 7 ) 10/17/2024 8:28 AM PIPE FITTER WELDING Body Mass Index 42.85 10/17/2024 8:28 AM PIPE FITTER WELDING Plan of Treatment Health Maintenance Due Date Last Done Comments Hepatitis B Screening 1993 Regular Well Visit/Exam 18-64 04/16/2025 04/16/2024, 09/29/2022 Breast Cancer Screening-Mammogram 10/08/2025 10/08/2024, 10/06/2023, 08/17/2022 Covid-19 Vaccine ( season) 2025 06/29/2022, 01/14/2022, 05/13/2021, Additional history exists Postponed from 05/27/2024 (Patient declined, but will receive in the future) Depression Screening 10/09/2025 10/09/2024, 10/09/2024, 04/16/2024, Additional history exists Colon Cancer Screening-Colonoscopy 08/04/2027 08/04/2022 DTaP/Tdap/Td Vaccine (2 - Td or Tdap) 07/05/2032 07/05/2022 Pneumococcal vaccine <65 Completed 10/13/2022, 06/27 Hepatitis C Screening Completed 04/12/2024 Influenza Vaccine Completed 07/17/2024, , 06/28/2022, Additional history exists Procedures Procedure Name Priority Date/Time Associated Diagnosis Comments T4, FREE Routine 10/25/2024 11:37 AM PIPE FITTER WELDING Acquired hypothyroidism TSH Routine 10/25/2024 11:37 AM PIPE FITTER WELDING Acquired hypothyroidism SCREENING MAMMOGRAM BILATERAL W JACKY Schedule Routine, Read Routine (OP Routine) 10/08/2024 8:57 AM PIPE FITTER WELDING Screening mammogram, encounter for PSG (SIMPLE) Routine 08/28/2024 KRISHNA (obstructive sleep apnea) HEPATITIS C ANTIBODY Routine 04/12/2024 9:35 AM CDT Encounter for hepatitis C screening test for low risk patient COLONOSCOPY Routine 08/04/2022 from Last 3 Months or Most Recently Relevant to Health Maintenance Results * TSH (10/25/2024 11:37 AM PIPE FITTER WELDING) Thyroid Stimulating Hormone 2.81 0.30 - 4.20 mcIUnit/mL Blood 10/25/2024 11:3 7 AM PIPE FITTER WELDING 10/25/2024 5:55 PM PIPE FITTER WELDING Yoly Rivera NP LAB BLOOD ORDERABLES Fi nal Result Performing Organization Address [facility] Co de Phone Number CRIS STEVE [address] [facility] [employer] [place] [address] * T4, free (10/25/2024 11:37 AM PIPE FITTER WELDING) Free T4 0.99 0.90 - 1.70 ng/dL Blood 10/25/2024 11:3 7 AM PIPE FITTER WELDING 10/25/2024 5:55 PM PIPE FITTER WELDING Yoly Rievra NP LAB BLOOD ORDERABLES Fi nal Result Performing Organization Address [facility] Phone Number CIRS STEVE [address] [facility] [employer] [place] [address] * Screening Mammogram Bilateral W Jacky (10/08/2024 8:57 AM PIPE FITTER WELDING) Anatomical Region Laterality Modality Breast Bilateral Mammography 10/08/2024 9:13 AM PIPE FITTER WELDING Impressions 10/08/2024 9:13 AM PIPE FITTER WELDING There is no mammographic evidence to suggest malignancy. The patient may continue screening mammography as per ACR guidelines. FINAL ASSESSMENT: BI-RADS Category 1: Negative. Electronically signed by: Maddi Mckinney M.D. Narrative 10/08/2024 9:13 AM PIPE FITTER WELDING EXAMINATION: BILATERAL SCREENING MAMMOGRAM WITH TOMOGRAPHY HISTORY: [...] sleep study: Obstructive sleep apnea, persistent hypersomnolence [place] sleepiness score: 15 Weight: 272 lbs BMI: 42.60 Procedure: This overnight PAP titration polysomnogram was performed with the cardiopulmonary technologist chief in attendance. Patient is studied with multiple [...] scored according to the criteria from The [place] [employer] (AASM) Manual for [...] need for higher pressure. Sangita Aguiar MD [facility] Sleep Medicine Narrative Sangita Aguiar [...] - GENERAL ORDER ALISIA Final Result CRIS [id number] Department [place] [address] * Colonoscopy (08/04/2022) Anatomical Region Laterality Modality Other Impressions 08/04/2022 Repeat in 5 years Tila Bernal NP ENDOSCOPY PROCEDURES Final Resul t from Last 3 Months or Most Recently Relevant to Health Maintenance Insurance IDPA [employer] CHOICE PPO [employer]PA [employer] CHOICE PPO Care Teams Assessment Clinician Relationship Specialty Start Date End Date Yoly Rivera NP [address] [address] PCP - General Family Medicine 10/08/24 Stan Haq MD [address] [place] [address] Consulting Physician Pulmonary Disease 10/09/24 Sangita Aguiar MD [address] [place] [address] Consulting Physician Sleep Medicine 10/09/24 Damian Carrizales MD [address] [place] [address] [address] [place] [address] Consulting Physician Gastroenterology 10/09/24 Jaz Sanders NP [address] [place] [address] Nurse Practitioner Nurse Practitioner 10/09/24
--- OUTSIDE RECORDS SUMMARY | 2024-11-20 12:44 | XMS_ITS | Referral Summary ---
Author Organization [facility] Address [address] [place] [address] Care Team Providers Care Security Control Assessor Name Role Phone Tila Bernal JOSE LUIS-NURSE INFORMATICS EDUCATOR Primary Care Provider [phone] Source Comments [facility],non-owned Affiliates and Associated Physician Practices is amultiple site organization consisting of ambulatory clinics and hospital sitesin [place], [place], [place] and [place]. This disclosure is being madepursuant to the Care Everywhere program and may not contain all information available regarding this patient. Last updated 18.[facility] Allergies No known active allergies Medications * [...] Comments Blood Pressure 102/74 08/04/2021 8:48 AM NEGATIVE STRIPPER Pulse 99 08/04/2021 8:48 AM NEGATIVE STRIPPER Temperature 37.1 C (98.8 F) 06/29/2017 10:57 AM CDT Respiratory Rate 14 08/04/2021 8:48 AM NEGATIVE STRIPPER Oxygen Saturation 93% 06/29/2017 10:57 AM CDT Inhaled Oxygen Concentration - - Weight 108.4 kg (239 lb) 08/04/2021 8:48 AM NEGATIVE STRIPPER Height 166.4 cm (5' 5.5 ) 06/28/2017 6:37 AM CDT Body Mass Index 39.17 06/28/2017 6:37 AM CDT Plan of Treatment Not on file Advance Directives * Full Code (Latest Code Status on File) Date Activated Date Inactivated Comments 06/28/2017 2:34 PM 06/29/2017 2:48 PM Care Teams Security Control Assessor Relationship Specialty Start Date End Date Tila Bernal APRN-CHANDANA PCP - General 08/16/22
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
--- OUTSIDE RECORDS SUMMARY | 2024-11-20 12:44 | XMS_ITS | Patient Health Summary ---
Author Organization [facility] Address [address] [place] [address] Care Team Providers Care Clinical Project Leader Name Role Phone Tila Bernal JOSE LUIS-STATISTICAL CLERK Primary Care Provider [phone] Note from [facility],non-owned Affiliates and Associated Physician Practices is amultiple site organization consisting of ambulatory clinics and hospital sitesin [place], [place], [place] and [place]. This disclosure is being madepursuant to the Care Everywhere program and may not contain all information available regarding this patient. Last updated 18.[facility] Allergies No known active allergies Medications * Be aware that medications may not be up to date on this document. Alwaysverify current medications with the patient. * Ipratropium-Albuterol (COMBIVENT RESPIMAT IN) Inhale 2 Puffs by mouth once daily 2.5mcg/2.5mcg per actuation * atorvastatin (LIPITOR) 80 MG tablet(Started 07/27/2021) Take 80 mg by mouth once daily * buPROPion XL 24hr (WELLBUTRIN-XL) 300 MG tablet(Started 07/27/2021) Take 300 mg by mouth every morning * busPIRone (BUSPAR) 15 MG tablet(Started 07/27/2021) Take 15 mg by mouth 2 times daily * VRAYLAR 4.5 MG capsule(Started 07/27/2021) Take 4.5 mg by mouth at bedtime * desvenlafaxine succinate ER 24hr (PRISTIQ) 100 MG tablet(Started 07/27/2021) TAKE 1 TABLET BY MOUTH ONCE DAILY WITH 50MG TO EQUAL 150MG * fluticasone propionate (FLONASE) 50 MCG/ACT nasal spray(Started 07/27/2021) USE 2 SPRAYS IN EACH NOSTRIL ONCE DAILY * mirtazapine (REMERON) 15 MG tablet(Started 07/27/2021) Take 7.5 mg by mouth at bedtime * aspirin (ASPIRIN) 81 MG chew tablet(Started 08/04/2021) Take 1 (one) tablet by mouth once daily 4 refills by 08/04/2022 * metoprolol succinate XL 24hr (TOPROL XL) 50 MG tablet(Started 11/24/2021) Take 1 (one) tablet by mouth once daily 4 refills by 11/24/2022 Active Problems Problem Noted Date Diagnosed Date Palpitations 08/04/2021 Diagnosis unknown 06/28/2017 Immunizations * INFLUENZA VACCINE, QUADR. (FLUZONE; FLULAVAL; FLUARIX; AFLURIA QUADRIVALENT; 6MO+), 0.5 ML (IIV4)(Given 06/29/2017) Social History Tobacco Use Types Packs/Day Years [...] Comments Blood Pressure 102/74 08/04/2021 8:48 AM PRESS OPERATOR HELPER Pulse 99 08/04/2021 8:48 AM PRESS OPERATOR HELPER Temperature 37.1 C (98.8 F) 06/29/2017 10:57 AM CDT Respiratory Rate 14 08/04/2021 8:48 AM PRESS OPERATOR HELPER Oxygen Saturation 93% 06/29/2017 10:57 AM CDT Inhaled Oxygen Concentration - - Weight 108.4 kg (239 lb) 08/04/2021 8:48 AM PRESS OPERATOR HELPER Height 166.4 cm (5' 5.5 ) 06/28/2017 6:37 AM CDT Body Mass Index 39.17 06/28/2017 6:37 AM CDT Procedures * ECHOCARDIOGRAM(Performed 08/06/2021) * ECHOCARDIOGRAM(Performed 05/26/2021) * EKG(Performed 05/26/2021) * HOLTER MONITOR(Performed 05/26/2021) * LAB RESULTS ORDER(Performed 05/26/2021) * IMAGING/RADIOLOGY/XRAY RESULTS ORDER(Performed 12/30/2020) * CT ANGIO CHEST(Performed 09/23/2020) * LIPID PROFILE (EXTERAL RESULT ENTRY)(Performed 07/01/2020) * VAS CAROTID DUPLEX LTD(Performed 04/16/2019) * CARDIAC HOLTER MONITOR ORDER(Performed 05/16/2018) * LAB RESULTS ORDER(Performed 05/11/2018) * XR CHEST 2VW(Performed 05/11/2018) * CARDIAC RHYTHM STRIP ORDER(Performed 06/30/2017) * CALCIUM BLOOD(Performed 06/29/2017) Performed for Hyperparathyroidism (HCC) * PTH INTACT(Performed 06/29/2017) Performed for Hyperparathyroidism (HCC) * CALCIUM BLOOD(Performed 06/28/2017) Performed for Hyperparathyroidism (HCC) * BASIC METABOLIC PANEL (CALCIUM TOTAL)(Performed 06/28/2017) Performed for Hyperparathyroidism (HCC) * PTH INTACT W/O CALCIUM(Performed 06/28/2017) Performed for Hyperparathyroidism (HCC) * PTH INTACT W/O CALCIUM(Performed 06/28/2017) Performed for Hyperparathyroidism (HCC) * PTH INTACT W/O CALCIUM(Performed 06/28/2017) Performed for Hyperparathyroidism (HCC) * PTH INTACT W/O CALCIUM(Performed 06/28/2017) Performed for Hyperparathyroidism (HCC) * PTH INTACT W/O CALCIUM(Performed 06/28/2017) Performed for Hyperparathyroidism (HCC) * PATHOLOGY TISSUE EXAM (STL)(Performed 06/28/2017) Performed for Diagnosis unknown * PTH INTACT W/O CALCIUM(Performed 06/28/2017) Performed for Hyperparathyroidism (HCC) * PARATHYROIDECTOMY(Performed 06/28/2017) Performed for Diagnosis unknown Results * ECHOCARDIOGRAM (08/06/2021) Only the most recent of2 resultswithin the time period is included. Valerie Cochran BOXING PROMOTER-STATISTICAL CLERK SCANNING ONLY * HOLTER MONITOR (05/26/2021) Valerie Cochran BOXING PROMOTER-STATISTICAL CLERK SCANNING ONLY * EKG (05/26/2021) Scanned Document SCANNING ONLY * LAB RESULTS ORDER (05/26/2021) Only the most recent of2 resultswithin the time period is included. Scanned Document LAB - THERAPEUTIC DR UG MONITORING ORDERABLES * IMAGING RADIOLOGY XRAY RESULTS ORDER (12/30/2020) Anatomical Region Laterality Modality Other Scanned Document IMAGING * CT ANGIO CHEST (09/23/2020) Anatomical Region Laterality Modality Chest Other Scanned Document CT ORDERABLES * LIPID PROFILE (EXTERAL RESULT ENTRY) (07/01/2020) Blood BLOOD SPECIMEN / Unknown Valerie Cochran APRN-STATISTICAL CLERK LAB - CHEMISTRY ORDERABLES * VAS CAROTID DUPLEX LTD (04/16/2019) Anatomical Region Laterality Modality Neck Other Scanned Document VASCULAR LAB ORDERAB LES * CARDIAC HOLTER MONITOR ORDER (05/16/2018) Scanned Document CARDIAC SERVICES ORD ERABLES * XR CHEST 2VW (05/11/2018) Anatomical Region Laterality Modality Chest Other Valerie Cochran APRN-STATISTICAL CLERK DIAGNOSTIC IMAG ING ORDERABLES * CARDIAC RHYTHM STRIP ORDER (06/30/2017 10:41 PM CDT) Narrative 06/30/2017 10:41 PM CDT Ordered by an unspecified provider. Scanned Document CARDIAC SERVICES ORD ERABLES * (ABNORMAL) PTH INTACT (06/29/2017 6:31 AM CDT) PTH Intact 11(L) 14 - 72 pg/mL 06/29/2017 7:42 AM CDT [facility] Calcium 8.6 8.5 - 10.1 mg/dL 06/29/2017 7:42 AM CDT [facility] Blood BLOOD SPECIMEN / Unknown Lab Venipuncture / Unknown 06/29/2017 6:31 AM CDT 06/29/2017 6:35 AM CDT Kain Russo MD LAB - CHEMISTRY IV[facility]N MORENO Performing Organization Address [facility]/ZIP Co de Phone Number [facility] [address] [place] [address] * CALCIUM BLOOD (06/29/2017 6:31 AM CDT) Only the most recent of2 resultswithin the time period is included. Calcium 8.7 8.5 - 10.1 mg/dL 06/29/2017 6:45 AM CDT [facility] Blood BLOOD SPECIMEN / Unknown Lab Venipuncture / Unknown 06/29/2017 6:31 AM CDT 06/29/2017 6:35 AM CDT Kain Russo MD LAB - CHEMISTRY IVÁN MORENO Performing Organization Address [facility] Co de Phone Number [facility] [address] [place] [address] * (ABNORMAL) BASIC METABOLIC PANEL (CALCIUM TOTAL) (06/28/2017 5:55 PM CDT) Glucose 131(H) 74 - 106 mg/dL 06/28/2017 6:21 PM CDT [facility] Sodium 141 136 - 145 mmol/L 06/28/2017 6:21 PM CDT [facility] Potassium 4.6 3.5 - 5.1 mmol/L 06/28/2017 6:21 PM CDT [facility] Chloride 107 98 - 107 mmol/L 06/28/2017 6:21 PM CDT [facility] CO2 28 22 - 31 mmol/L 06/28/2017 6:21 PM CDT [facility] Calcium 8.8 8.5 - 10.1 mg/dL 06/28/2017 6:21 PM T [facility] Anion Gap 6(L) 8 - 16 mmol/L 06/28/2017 6:21 PM CDT [facility] BUN 14 7 - 21 mg/dL 06/28/2017 6:21 PM CDT [facility] Creatinine 0.97 0.50 - 1.30 mg/dL 06/28/2017 6:21 PM CDT [facility] eGFR by MDRD >60 >60 mL/min/1.7 3m2 06/28/2017 6:21 PM CDT [facility] eGFR by MDRD >60 >60 mL/min/1.7 3m2 06/28/2017 6:21 PM CDT [facility] Blood BLOOD SPECIMEN / Unknown Lab Venipuncture / Unknown 06/28/2017 5:55 PM CDT 06/28/2017 6:00 PM CDT Kain Russo MD LAB - CHEMISTRY IVÁN MORENO [facility] [address] [place] [id number] * (ABNORMAL) PTH INTACT W/O CALCIUM (06/28/2017 11:51 AM CDT) Only the most recent of6 resultswithin the time period is included. PTH Intact 13(L) 14 - 72 pg/mL 06/28/2017 12:32 PM CDT [facility] Blood BLOOD SPECIMEN / Unknown Venipuncture / Unknown 06/28/2017 11:51 AM CDT 06/28/2017 11:51 AM CDT Kain Russo MD LAB - CHEMISTRY IVÁN MORENO [facility] [address] [place] [address] * GROSS + MICRO EXAM (STL) (06/28/2017 8:37 AM CDT) Case Report Surgical Pathology Report Case: [id number] Authorizing Provider: Kain Russo MD Collected: 06/28/2017 08:37 AM Ordering Location: [facility] Received: 06/28/2017 08:48 AM Pathologist: Sharon Avila MD Specimens: A) - Parathyroid Gland, Left anterior parathyroid B) - Parathyroid Gland, Left superior parathyroid C) - Parathyroid Biopsy, Right Inferior Parathyroid D) - Tissue, Right Carotid [place] Content E) - Tissue, Left Carotid [place] Content F) - Parathyroid Gland, Right Anterior Parathyroid 07/01/2017 8:50 AM [facility] Final Diagnosis A. Left anterior parathyroid , excision: - Benign lymph node - Parathyroid tissue not identified B. Parathyroid, left superior, excision: - Parathyroid tissue present, 0.7 cm C. Right inferior parathyroid, excision: - Benign lymph node - Parathyroid tissue not identified D. Soft tissue, right carotid triangle contents: - Focal parathyroid tissue present, 0.4 cm - Benign thyroid tissue - No evidence of malignancy in five lymph nodes (0/5) E. Soft tissue, left carotid triangle content: - Hypercellular parathyroid tissue, 1.0 cm - Benign thymic tissue F. Right anterior parathyroid , excision: - Benign lymph node - Parathyroid tissue not identified 07/01/2017 8:50 AM [facility] Frozen Section FSA: Left anterior parathyroid excision:: - Benign lymph node Called to Dr. Russo at 8:58 (KL) FSB: Left superior parathyroid , excision:: - Parathyroid tissue present Called to Dr. Russo At 9:15 am (KL) FSC: Right inferior parathyroid , excision: - Benign lymph node Called to Juliet in [place] 6 at 0950 (KL) FSD: Carotid triangle contents : - Focal parathyroid tissue - Multiple lymph nodes - Focal thyroid tissue Called to Juliet in [place] 6 at 11:42 (KL) FSE: Left carotid triangle content : - Tissue consistent with hypercellular parathyroid Called to Juliet in [place] 6 at 11:42 (KL) FSF: Right anterior parathyroid : - Fibroadipose tissue - No parathyroid tissue identified Called to Juliet in [place], at 11:46 (KL) 07/01/2017 8:50 AM [facility] Frozen Section Pathologist(s ) Sharon Avila M.D. 07/01/2017 8:50 AM [facility] Gross Description The specimens are received fresh for frozen section diagnosis in six containers each labeled with the patient's name, Veronica Callahan. The first container is additionally labeled, left anterior parathyroid, and consists of a 1.3 x 1.0 x 0.6 cm fragment of guerrero-yellow fatty tissue. The tissue is entirely frozen as FSA. Frozen section remnant submitted in A1. The second container is additionally labeled, left superior parathyroid, and consists of a 0.7 x 0.3 x 0.3 cm fragment of guerrero-yellow tissue which is entirely frozen as FSB. Frozen section remnant submitted in B1. The third specimen is additionally labeled, right inferior parathyroid, and consists of a 0.5 x 0.3 x 0.3 cm fragment of guerrero-truong tissue which is entirely frozen as FSC. Frozen section remnant submitted in C1. The fourth container is additionally labeled, right carotid triangle content, and consists of three fragments of guerrero fatty tissue measuring 0.7, 1.0, 1.5 cm in greatest dimension. The tissue is entirely frozen as FSD. Frozen section remnant submitted in D1. The fifth container is additionally labeled, left carotid triangle content, and consists of a 2.5 x 2.0 x 1.0 cm guerrero-yellow, partially membranous and focally brown tissue. A outbound sales representative section of this tissue is submitted as FSE. Frozen section remnant submitted in E1. The remainder of this tissue is submitted in E2. The sixth container is additionally labeled, right anterior parathyroid, and consists of a 0.5 x 0.3 x 0.3 cm fragment of guerrero-white tissue which is entirely frozen as FSF. Frozen section remnant submitted in F1. TANIA/zay 07/01/2017 8:50 AM T [facility] Microscopic Description The frozen section diagnoses are confirmed. Histologic sections of the specimen submitted as left anterior parathyroid (A) show no evidence of malignancy in one lymph node. Parathyroid tissue is not identified. Histologic sections of the left superior parathyroid (B) show a 0.7 cm in greatest dimension parathyroid gland. There is no evidence of malignancy. Histologic sections of the specimen submitted as right inferior parathyroid (C) show benign lymph node. Histologic sections of the right carotid triangle contents show five benign lymph nodes, a portion of benign thyroid tissue, and a portion of benign parathyroid tissue which is only appreciable in the frozen section fragment and has been cut through in the permanent material. There is no evidence of malignancy. Histologic sections of the left carotid triangle contents show hypercellular parathyroid measuring approximately 1 x 0.6 cm which shows a prominent microfollicular architecture. The background tissue is composed of benign thymic tissue. There is no evidence of malignancy. Histologic sections of the specimen labeled, right anterior parathyroid shows benign fibroadipose tissue with a benign lymph node identified in deeper sections cut for permanent. Parathyroid tissue is not identified. There is no evidence of malignancy. KL/na 07/01/2017 8:50 AM CDT [facility] Disclaimer All histochemical and/or immunohistochemical results are interpreted with controls that demonstrate appropriate staining reactions before reporting results. Note on use of immunocytochemistry reagents: This test was developed and its performance characteristic determined by [facility], Department of Laboratory Medicine. It has not been cleared or approved by the U.S. Food and Drug Administration (FDA). The FDA has determined that such clearance or approval is not necessary. The test is used for clinical purpose. It should not be regarded as investigational or for research. This laboratory is certified to perform high complexity testing. 07/01/2017 8:50 AM CDT [facility] Embedded Images 07/01/2017 8:50 AM CDT [facility] Pathology/Cytology ENTIRE PARATHYROID GLAND / Unknown 06/28/2017 8:37 AM CDT 06/28/2017 8:48 AM CDT Miscellaneous samples (specimen) ENTIRE PARATHYROID GLAND / Unknown 06/28/2017 9:00 AM CDT 06/28/2017 9:06 AM CDT Miscellaneous samples (specimen) BIOPSY OF PARATHYROID GLAND / Unknown 06/28/2017 9:33 AM CDT 06/28/2017 9:40 AM CDT Miscellaneous samples (specimen) TISSUE SPECIMEN / Unknown 06/28/2017 11:10 AM CDT 06/28/2017 11:24 AM CDT Miscellaneous samples (specimen) TISSUE SPECIMEN / Unknown 06/28/2017 11:13 AM CDT 06/28/2017 11:24 AM CDT Miscellaneous samples (specimen) ENTIRE PARATHYROID GLAND / Unknown 06/28/2017 11:25 AM CDT 06/28/2017 11:38 AM CDT Kain Russo MD LAB - PATHOLOGY/CYTO LOGY ORDERABLES [facility] [address] [address] Care Teams Clinical Project Leader Relationship Specialty Start Date End Date Tila Bernal APRN-CHANDANA PCP - General 11/21/22
--- OUTSIDE RECORDS SUMMARY | 2024-11-20 13:58 | XMS_ITS | Referral Summary ---
Author Organization [facility] [address] [facility] [address] Address [address] [place] [address] Care Team Providers [facility] Television Rental Clerk Name Role Phone Yoly Rivera NP Primary Care Provider Stan Haq MD Unavailable Sangita Aguiar MD Unavailable Damian Carrizales MD Unavailable Jaz Sanders NP Unavailable [phone] Encounters Date Type Department Care Team Description 10/25/2024 11:32 AM CURRENCY COUNTER - 10/25/2024 11:59 PM CURRENCY COUNTER Hospital Encounter [address] [id number] Acquired hypothyroidism Discharge Disposition: Discharge to home or self care 10/25/2024 11:30 AM CURRENCY COUNTER Lab [facility] Outpatient Lab at [address] [phone] Mixed hyperlipidemia (Primary Dx) 10/17/2024 8:45 AM CURRENCY COUNTER Office Visit [facility] Pulmonary at [address] [place] [address] Stan Haq MD Cigarette nicotine dependence in remission (Primary Dx); Moderate persistent asthma without complication; Obstructive sleep apnea; Class 3 severe obesity due to excess calories without serious comorbidity with body mass index (BMI) of 40.0 to 44.9 in adult (HCC) 10/09/2024 10:00 AM CURRENCY COUNTER Office Visit [facility] Primary Care at [place] [address] [facility] [address] [place] [address] Yoly Rivera NP Establishing care with new doctor, encounter for (Primary Dx); Hypertension, essential; Mixed hyperlipidemia; Prediabetes; Acquired hypothyroidism; Stage 3a chronic kidney disease (HCC); Environmental and seasonal allergies; Bipolar 1 disorder (HCC); Recurrent major depressive disorder, in full remission (CMS/HCC) (HCC); Moderate persistent asthma without complication; KRISHNA (obstructive sleep apnea); Morbid obesity with BMI of 40.0-44.9, adult ([facility]) 10/08/2024 8:44 AM CURRENCY COUNTER - 10/08/2024 11:59 PM CURRENCY COUNTER Hospital Encounter [facility] [address] [place] [address] Screening mammogram, encounter for Discharge Disposition: Discharge to home or self care 08/29/2024 9:30 AM CURRENCY COUNTER Office Visit [facility] Sleep Medicine at [place] [address] [facility] [address] [place] [id number] Sangita Aguiar MD KRISHNA (obstructive sleep apnea) (Primary Dx); Treatment-emergent central sleep apnea; Hypersomnia; Obesity, unspecified class, unspecified obesity type, unspecified whether serious comorbidity present 08/27/2024 7:00 PM CURRENCY COUNTER - 08/27/2024 11:59 PM CURRENCY COUNTER Hospital Encounter [facility] [address] [place] [id number] KRISHNA (obstructive sleep apnea) Discharge Disposition: Discharge [...] 10/09/2024 Assessment & Plan (10/09/2024 10:50 AM CURRENCY COUNTER): -chronic, not at goal -currently uses Benadryl [...] 01/23/2024 Assessment & Plan (10/09/2024 10:42 AM CURRENCY COUNTER): -chronic, at goal -patient currently reports compliance with CPAP machine -denies any excessive fatigue or daytime sleepiness -continue current treatment plan Assessment & Plan (01/23/2024 1:11 PM CDT): Remain on BiPAP with all sleep We have discussed the risks of uncorrected sleep apnea Continue to follow the sleep medicine Moderate persistent asthma without complication 01/23/2024 Assessment & Plan (10/09/2024 10:49 AM CURRENCY COUNTER): -chronic, stable -patient currently prescribed albuterol rescue [...] 10/03/2023 Assessment & Plan (10/09/2024 10:34 AM CURRENCY COUNTER): BP Readings from Last 3 Encounters: 10/09/24 [...] ECG Assessment & Plan (10/03/2023 10:52 AM CURRENCY COUNTER): Improving. Patient has been on metoprolol xl [...] 10/03/2023 Assessment & Plan (10/09/2024 10:35 AM CURRENCY COUNTER): Lab Results Component Value Date HGBA1C 5.8 [...] down. Assessment & Plan (10/03/2023 10:54 AM CURRENCY COUNTER): Stable. Patient has pre diabetes but not [...] 10/03/2023 Assessment & Plan (10/09/2024 10:48 AM CURRENCY COUNTER): Lab Results Component Value Date TSH 2.69 04/12/2024 -chronic, controlled -patient currently takes Synthroid 50 mcg daily -most recent TSH within normal range -Will recheck TSH and T4 -continue current treatment plan Assessment & Plan (01/01/2024 8:09 PM CDT): TSH now within normal limits. Continue levothyroxine 50mcg daily. F/u 6 months Assessment & Plan (10/03/2023 10:56 AM CURRENCY COUNTER): Will increase levothyroxine to 50 mcg daily based on her last TSH which was done last week. Will have her follow-up in 3 months with repeat TSH Stage 3a chronic kidney disease 10/03/2023 Assessment & Plan (10/09/2024 10:37 AM CURRENCY COUNTER): Lab Results Component Value Date CREATININE 1.03 [...] monitor Assessment & Plan (10/03/2023 10:57 AM CURRENCY COUNTER): Lab Results Component Value Date GFRNAA 55 [...] tomatoes, oranges, milk, dark melony and chocolate. Pocahontas juice, citrus juices, and tomato juice are also high in potassium. Do not use salt substitutes, as they may contain potassium. Additional resources available online from the National Kidney Foundation at www.kidney.org/nutrition Labs are stable. Continue tight blood pressure control. Encouraged adequate fluid intake. Avoid nsaids. Will continue to monitor. Multiple lipomas 10/03/2023 Assessment & Plan (10/03/2023 10:58 AM CURRENCY COUNTER): Has 3 lipomas. Most bothersome 1 is on her right inner thigh. Will send her to plastic surgery for evaluation of removal which patient is considering at this time Morbid obesity with BMI of 40.0-44.9, adult 0 05/2023 Assessment & Plan (10/09/2024 10:46 AM CURRENCY COUNTER): Wt Readings from Last 3 Encounters: 10/09/24 [...] counseling. Assessment & Plan (10/03/2023 10:54 AM CURRENCY COUNTER): BMI Follow-up includes: nutrition counseling and exercise [...] script Assessment & Plan (10/13/2022 8:02 AM CURRENCY COUNTER): linzess 290 helps but causes diarrhea, doesn't like taking it. Will decrease to the 145mcg dose. Constipation guidelines. Discussed diet, exercise. Refer to GI - she saw Dr. Squires at [facility] for her colonoscopy which was done in 2021 and was negative with exception of polyps with rec. 5 year f/u. Chronic fatigue 10/02/2022 Assessment & Plan (10/03/2023 10:55 AM CURRENCY COUNTER): Her mental health nurse practitioner just did [...] related Assessment & Plan (10/02/2022 9:53 AM CURRENCY COUNTER): Encouraged her to talk to her psychiatrist which she has recently established with here in [place] about Remeron if that could be making [...] straight and bend your knees when you picking tech an object. Do not bend or twist [...] refuse treatment. The above information is an educational technician only. It is not intended as medical advice for individual conditions or treatments. Talk to your doctor, nurse or pharmacist before following any medical regimen to see if it is safe and effective for you. 2017 [employer] Information is for End User's use only and may not be sold, redistributed or otherwise used for commercial purposes. All illustrations and images included in CareNotes are the copyrighted property of [employer] or [employer]. 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 2017 [employer] Information is for End User's use only and may not be sold, redistributed or otherwise used for commercial purposes. All illustrations and images included in CareNotes are the copyrighted property of [employer] or [employer]. The above information is an educational technician only. It is not intended as medical advice for individual conditions or treatments. Talk to your doctor, nurse or pharmacist before following any medical regimen to see if it is safe and effective for you. Recurrent major depressive d isorder, in full remission ([facility]) 06/28/2022 Assessment & Plan (10/09/2024 10:48 AM CURRENCY COUNTER): -chronic, stable -patient currently takes wellbutrin 150 [...] CDT): As above. Treated by psychiatry in [place], Jaz Tommy,MHNP, symptoms stable Assessment & Plan (06/28/2022 2:50 PM CDT): Long hx of. Had psychiatrist back home. Will refer back to psychiatrist. Agreed to prescribe psych. Medications for 6 months while establishing care. Bipolar 1 disorder 06/28/2022 Assessment & Plan (10/09/2024 10:48 AM CURRENCY COUNTER): -chronic, stable -patient currently takes wellbutrin 150 [...] (03/31/2023 10:24 AM CDT): Continues to see professor of psychiatry in [place]. Stable on vraylor and remeron. Buproprion, buspar, pristiq. Assessment & Plan (06/28/2022 2:51 PM CDT): On Vraylar 6mg. Agreed to prescribe for 6 months until establishes with psychiatry here. Mixed hyperlipidemia 06/28/2022 Assessment & Plan (10/09/2024 10:32 AM CURRENCY COUNTER): -chronic, stable -currently takes lipitor 80 mg [...] regimen. Assessment & Plan (10/03/2023 10:54 AM CURRENCY COUNTER): Lipid abnormalities are stable. Pharmacotherapy as ordered. Lipids will be reassessed in 6 months. Assessment & Plan (03/31/2023 10:32 AM CDT): Lipid abnormalities are stable, reviewed previous lipid levels in [facility]. Pharmacotherapy as ordered. Pt voiced understanding of continuation of current medication regimen. Continue atorvastatin. Last lipid panel done last week. LDL 102 Assessment & Plan (10/02/2022 9:44 AM CURRENCY COUNTER): Lipid abnormalities are stable, reviewed previous lipid [...] ordered Assessment & Plan (10/02/2022 9:50 AM CURRENCY COUNTER): -Recommended: Healthy diet. Avoiding junk food/fast food. [...] not currently treated. 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 Will refer back to pulmonology [...] vaccination Assessment & Plan (11/23/2017 12:33 PM CURRENCY COUNTER): Sx are consistent with COPD. Stopped smoking [...] 01/23/2024 Assessment & Plan (10/03/2023 10:55 AM CURRENCY COUNTER): Patient follows with sleep Medicine, Dr. Aguiar and wears a CPAP Assessment & Plan (03/31/2023 10:33 AM CDT): Compliant with cpap, but feels like it doesn't do much good. Just had sleep study repeated. Going to see sleep medicine tomorrow again to discuss results. Assessment & Plan (10/02/2022 9:48 AM CURRENCY COUNTER): Patient just started using her CPAP full-time [...] 03/31/2023 Assessment & Plan (10/13/2022 8:35 PM CURRENCY COUNTER): BMI Follow-up includes: exercise counseling. Assessment & Plan (07/05/2022 2:38 PM CDT): HPI: Condition is not at/near goal goal BMI <30 A&P: Healthy, high-protein, lower carbohydrate, lower fat lifestyle and exercise for 150min/week recommended Recommend tracking everything you put in your mouth on an damian like [employer] Lower carb substitutions: [employer] carries a zero [...] in much longer they will become mushy [place] and/or coconut flour instead of regular flour [...] pork rinds For yogurt, try Two Good czech yogurt Use Nile for recipe ideas. Type [...] & Plan (03/31/2023 10:23 AM CDT): At [facility]. After foot surgery. She was on eliquis [...] time Assessment & Plan (11/23/2017 12:32 PM CURRENCY COUNTER): Provoked pulmonary embolism. No clear evidence of [...] on file Legal Sex Female 6:44 PM CURRENCY COUNTER Gender Identity Female 04/04/2022 5:01 PM CDT Sexual Orientation Straight 06/20/2024 1: 12 PM CDT Last Filed Vital Signs Vital Sign Reading Time Taken Comments Blood Pressure 102/70 10/17/2024 8:28 AM CURRENCY COUNTER Pulse 85 10/17/2024 8:28 AM CURRENCY COUNTER Temperature 36.3 C (97.3 F) 10/17/2024 8:28 AM CURRENCY COUNTER Respiratory Rate 16 10/09/2024 10:1 9 AM CURRENCY COUNTER Oxygen Saturation 97% 10/17/2024 8:28 AM CURRENCY COUNTER Inhaled Oxygen Concentration - - Weight 124.1 kg (273 lb 9.6 oz) 10/17/2024 8:28 AM CURRENCY COUNTER Height 170.2 cm (5' 7 ) 10/17/2024 8:28 AM CURRENCY COUNTER Body Mass Index 42.85 10/17/2024 8:28 AM CURRENCY COUNTER Plan of Treatment Not on file Procedures Procedure Name Priority Date/Time Associated Diagnosis Comments T4, FREE Routine 10/25/2024 11:37 AM CURRENCY COUNTER Acquired hypothyroidism TSH Routine 10/25/2024 11:37 AM CURRENCY COUNTER Acquired hypothyroidism SCREENING MAMMOGRAM BILATERAL W JACKY Schedule Routine, Read Routine (OP Routine) 10/08/2024 8:57 AM CURRENCY COUNTER Screening mammogram, encounter for PSG (SIMPLE) Routine 08/28/2024 KRISHNA (obstructive sleep apnea) HEPATITIS C ANTIBODY Routine 04/12/2024 9:35 AM CDT Encounter for hepatitis C screening test for low risk patient COLONOSCOPY Routine 08/04/2022 from Last 3 Months or Most Recently Relevant to Health Maintenance Results * TSH (10/25/2024 11:37 AM CURRENCY COUNTER) Thyroid Stimulating Hormone 2.81 0.30 - 4.20 mcIUnit/mL Blood 10/25/2024 11:3 7 AM CURRENCY COUNTER 10/25/2024 5:55 PM CURRENCY COUNTER Yoly Rivera NP LAB BLOOD ORDERABLES Fi nal Result Performing Organization Address City/[facility]/ZIP Co de Phone Number CRIS STEVE [address] [address] [facility] XDN/[employer] [place] [address] * T4, free (10/25/2024 11:37 AM CURRENCY COUNTER) Free T4 0.99 0.90 - 1.70 ng/dL Blood 10/25/2024 11:3 7 AM CURRENCY COUNTER 10/25/2024 5:55 PM CURRENCY COUNTER Yoly Rivera NP LAB BLOOD ORDERABLES Fi nal Result Performing Organization Address [facility] Co de Phone Number CRIS STEVE [address] [address] [facility] [employer] [place] [address] * Screening Mammogram Bilateral W Jacky (10/08/2024 8:57 AM CURRENCY COUNTER) Anatomical Region Laterality Modality Breast Bilateral Mammography 10/08/2024 9:13 AM CURRENCY COUNTER Impressions 10/08/2024 9:13 AM CURRENCY COUNTER There is no mammographic evidence to suggest malignancy. The patient may continue screening mammography as per ACR guidelines. FINAL ASSESSMENT: BI-RADS Category 1: Negative. Electronically signed by: Maddi Mckinney M.D. Narrative 10/08/2024 9:13 AM CURRENCY COUNTER EXAMINATION: BILATERAL SCREENING MAMMOGRAM WITH TOMOGRAPHY HISTORY: [...] sleep study: Obstructive sleep apnea, persistent hypersomnolence Dixon sleepiness score: 15 Weight: 272 lbs BMI: 42.60 Procedure: This overnight PAP titration polysomnogram was performed with the radiologic technologist in attendance. Patient is studied with [...] scored according to the criteria from The [place] [employer] (AASM) Manual for [...] need for higher pressure. Sangita Aguiar MD [facility] Sleep Medicine Narrative Sangita Aguiar [...] GENERAL ORDER ALISIA Final Result [place] [address] [address] Department of Laboratories [place] [id number] * Colonoscopy (08/04/2022) Anatomical Region Laterality Modality Other Impressions 08/04/2022 Repeat in 5 years Tila Bernal NP ENDOSCOPY PROCEDURES Final Resul t from Last 3 Months or Most Recently Relevant to Health Maintenance Insurance IDPA [employer]PA [employer] PPO IDPA [facility] ADVANTAGE CHOICE PPO Care Teams Hospital Television Rental Clerk Relationship Specialty Start Date End Date Yoly Rivera NP [address] [place] [address] PCP - General Family Medicine 10/08/24 Stan Haq MD [address] [place] [address] Consulting Physician Pulmonary Disease 10/09/24 Sangita Aguiar MD [address] [place] [address] Consulting Physician Sleep Medicine 10/09/24 Damian Carrizales MD [address] [place] [address] [address] [place] [address] Consulting Physician Gastroenterology 10/09/24 Jaz Sanders NP [address] [place] [address] Nurse Practitioner Nurse Practitioner 10/09/24
--- OUTSIDE RECORDS SUMMARY | 2024-11-20 13:59 | XMS_ITS | Clinical Summary ---
Author Organization [facility] [address] [place] [address] rty Address [address] [place] [address] Care Team Providers Care Hand Winder Name Role Phone Yoly Rivera NP Primary Care Provider Stan Haq MD Unavailable Sangita Aguiar MD Unavailable Damian Carrizales MD Unavailable Jaz Sanders NP Unavailable [phone] Allergies Active Allergy Reactions Criticality Noted [...] 10/09/2024 Assessment & Plan (10/09/2024 10:50 AM ELECTRICAL ENGINEERING DESIGNER): -chronic, not at goal -currently uses Benadryl [...] 01/23/2024 Assessment & Plan (10/09/2024 10:42 AM ELECTRICAL ENGINEERING DESIGNER): -chronic, at goal -patient currently reports compliance with CPAP machine -denies any excessive fatigue or daytime sleepiness -continue current treatment plan Assessment & Plan (01/23/2024 1:11 PM CDT): Remain on BiPAP with all sleep We have discussed the risks of uncorrected sleep apnea Continue to follow the sleep medicine Moderate persistent asthma without complication 01/23/2024 Assessment & Plan (10/09/2024 10:49 AM ELECTRICAL ENGINEERING DESIGNER): -chronic, stable -patient currently prescribed albuterol rescue [...] 10/03/2023 Assessment & Plan (10/09/2024 10:34 AM ELECTRICAL ENGINEERING DESIGNER): BP Readings from Last 3 Encounters: 10/09/24 [...] ECG Assessment & Plan (10/03/2023 10:52 AM ELECTRICAL ENGINEERING DESIGNER): Improving. Patient has been on metoprolol xl [...] 10/03/2023 Assessment & Plan (10/09/2024 10:35 AM ELECTRICAL ENGINEERING DESIGNER): Lab Results Component Value Date HGBA1C 5.8 [...] down. Assessment & Plan (10/03/2023 10:54 AM ELECTRICAL ENGINEERING DESIGNER): Stable. Patient has pre diabetes but not [...] 10/03/2023 Assessment & Plan (10/09/2024 10:48 AM ELECTRICAL ENGINEERING DESIGNER): Lab Results Component Value Date TSH 2.69 04/12/2024 -chronic, controlled -patient currently takes Synthroid 50 mcg daily -most recent TSH within normal range -Will recheck TSH and T4 -continue current treatment plan Assessment & Plan (01/01/2024 8:09 PM CDT): TSH now within normal limits. Continue levothyroxine 50mcg daily. F/u 6 months Assessment & Plan (10/03/2023 10:56 AM ELECTRICAL ENGINEERING DESIGNER): Will increase levothyroxine to 50 mcg daily based on her last TSH which was done last week. Will have her follow-up in 3 months with repeat TSH Stage 3a chronic kidney disease 10/03/2023 Assessment & Plan (10/09/2024 10:37 AM ELECTRICAL ENGINEERING DESIGNER): Lab Results Component Value Date CREATININE 1.03 [...] monitor Assessment & Plan (10/03/2023 10:57 AM ELECTRICAL ENGINEERING DESIGNER): Lab Results Component Value Date GFRNAA 55 [...] tomatoes, oranges, milk, dark melony and chocolate. [place] juice, citrus juices, and tomato juice are also high in potassium. Do not use salt substitutes, as they may contain potassium. Additional resources available online from the National Kidney Foundation at www.kidney.org/nutrition Labs are stable. Continue tight blood pressure control. Encouraged adequate fluid intake. Avoid nsaids. Will continue to monitor. Multiple lipomas 10/03/2023 Assessment & Plan (10/03/2023 10:58 AM ELECTRICAL ENGINEERING DESIGNER): Has 3 lipomas. Most bothersome 1 is on her right inner thigh. Will send her to plastic surgery for evaluation of removal which patient is considering at this time Morbid obesity with BMI of 40.0-44.9, adult 05/2023 Assessment & Plan (10/09/2024 10:46 AM ELECTRICAL ENGINEERING DESIGNER): Wt Readings from Last 3 Encounters: 10/09/24 [...] counseling. Assessment & Plan (10/03/2023 10:54 AM ELECTRICAL ENGINEERING DESIGNER): BMI Follow-up includes: nutrition counseling and exercise [...] script Assessment & Plan (10/13/2022 8:02 AM ELECTRICAL ENGINEERING DESIGNER): linzess 290 helps but causes diarrhea, doesn't like taking it. Will decrease to the 145mcg dose. Constipation guidelines. Discussed diet, exercise. Refer to GI - she saw Dr. Squires at [facility] for her colonoscopy which was done in 2021 and was negative with exception of polyps with rec. 5 year f/u. 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 Do not bend or twist [...] refuse treatment. The above information is an president educational institution only. It is not intended as medical advice for individual conditions or treatments. Talk to your doctor, nurse or pharmacist before following any medical regimen to see if it is safe and effective for you. 2017 Probity Information is for End User's use only and may not be sold, redistributed or otherwise used for commercial purposes. All illustrations and images included in CareNotes are the copyrighted property of [employer] (acquired by [employer]. or [employer]. 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 2017 Probity Information is for End User's use only and may not be sold, redistributed or otherwise used for commercial purposes. All illustrations and images included in CareNotes are the copyrighted property of A.D.A.M., Inc. or [employer]. The above information is an president educational institution only. It is not intended as medical advice for individual conditions or treatments. Talk to your doctor, nurse or pharmacist before following any medical regimen to see if it is safe and effective for you. Recurrent major depressive d isorder, in full remission ([facility]) 06/28/2022 Assessment & Plan (10/09/2024 10:48 AM ELECTRICAL ENGINEERING DESIGNER): -chronic, stable -patient currently takes wellbutrin 150 [...] CDT): As above. [place], symptoms stable Assessment & Plan (06/28/2022 2:50 PM CDT): Long hx of. Had psychiatrist back home. Will refer back to psychiatrist. Agreed to prescribe psych. Medications for 6 months while establishing care. Bipolar 1 disorder 06/28/2022 Assessment & Plan (10/09/2024 10:48 AM ELECTRICAL ENGINEERING DESIGNER): -chronic, stable -patient currently takes wellbutrin 150 [...] (03/31/2023 10:24 AM CDT): Continues to see clinical psychologist private practice in [place]. Stable on vraylor and remeron. Buproprion, buspar, pristiq. Assessment & Plan (06/28/2022 2:51 PM CDT): On Vraylar 6mg. Agreed to prescribe for 6 months until establishes with psychiatry here. Mixed hyperlipidemia 06/28/2022 Assessment & Plan (10/09/2024 10:32 AM ELECTRICAL ENGINEERING DESIGNER): -chronic, stable -currently takes lipitor 80 mg daily -Discussed importance of well-balanced diet -will recheck lab values at next visit -continue current treatment plan Assessment & Plan (04/16/2024 10:51 AM CDT): Lipid abnormalities are stable, reviewed previous lipid levels in [place]. I reviewed current lipid panel with patient today Continue statin therapy. Lipitor (atorvastatin) emphasized lifestyle changes, keeping weight down. Order for lipid panel was given today to be obtained. Pt voiced understanding of lab drawn and continuation of current medication regimen. Assessment & Plan (10/03/2023 10:54 AM ELECTRICAL ENGINEERING DESIGNER): Lipid abnormalities are stable. Pharmacotherapy as ordered. Lipids will be reassessed in 6 months. Assessment & Plan (03/31/2023 10:32 AM CDT): Lipid abnormalities are stable, reviewed previous lipid levels in [place]. Pharmacotherapy as ordered. Pt voiced understanding of continuation of current medication regimen. Continue atorvastatin. Last lipid panel done last week. LDL 102 Assessment & Plan (10/02/2022 9:44 AM ELECTRICAL ENGINEERING DESIGNER): Lipid abnormalities are stable, reviewed previous lipid levels in [place]. Pharmacotherapy as ordered. Order for lipid panel was given today to be obtained. Pt voiced understanding of lab drawn and continuation of current medication regimen. Assessment & Plan (06/28/2022 2:52 PM CDT): Lipid abnormalities are stable, reviewed previous lipid levels in [place]. Pharmacotherapy as ordered. Order for lipid panel [...] ordered Assessment & Plan (10/02/2022 9:50 AM ELECTRICAL ENGINEERING DESIGNER): -Recommended: Healthy diet. Avoiding junk food/fast food. [...] of hypertension. I cannot find anything in [facility] records available why she is on it. [...] not currently treated. Has notes from previous account resolution specialist from 2018. Will refer back to pulmonology [...] vaccination Assessment & Plan (11/23/2017 12:33 PM ELECTRICAL ENGINEERING DESIGNER): Sx are consistent with COPD. Stopped smoking [...] 01/23/2024 Assessment & Plan (10/03/2023 10:55 AM ELECTRICAL ENGINEERING DESIGNER): Patient follows with sleep Medicine, Dr. Aguiar and wears a CPAP Assessment & Plan (03/31/2023 10:33 AM CDT): Compliant with cpap, but feels like it doesn't do much good. Just had sleep study repeated. Going to see sleep medicine tomorrow again to discuss results. Assessment & Plan (10/02/2022 9:48 AM ELECTRICAL ENGINEERING DESIGNER): Patient just started using her CPAP full-time again. She is had difficulty in the past using the fullface mask. She has not noticed a whole lot of difference in fatigue even though she is made an effort into using the CPAP. She thinks the CPAP is 2 or 3 years old but has not had any monitoring since then.(patient has moved from [place]). I will see if pulmonology wants to take over management of the CPAP or if I need to refer her back to Sleep Medicine here Class 2 obesity with body ma ss index (BMI) of 39.0 to 39.9 in adult 06/28/2022 03/31/2023 Assessment & Plan (10/13/2022 8:35 PM ELECTRICAL ENGINEERING DESIGNER): BMI Follow-up includes: exercise counseling. Assessment & Plan (07/05/2022 2:38 PM CDT): HPI: Condition is not at/near goal goal BMI <30 A&P: Healthy, high-protein, lower carbohydrate, lower fat lifestyle and exercise for 150min/week recommended Recommend tracking everything you put in your mouth on an damian like [employer] Lower carb substitutions: Keaton carries a zero [...] in much longer they will become mushy [place] and/or coconut flour instead of regular flour [...] pork rinds For yogurt, try Two Good serbian yogurt Use Nile for recipe ideas. Type [...] & Plan (03/31/2023 10:23 AM CDT): At [facility] in [facility]. After foot surgery. She was on eliquis [...] time Assessment & Plan (11/23/2017 12:32 PM ELECTRICAL ENGINEERING DESIGNER): Provoked pulmonary embolism. No clear evidence of acute cor pulmonale Recs: 1) Continue eliquis for 6 months 2) Ok to return to work. Dyspnea on exertion 10/03/19 24 Assessment & Plan (03/31/2023 10:29 AM CDT): Pt complains of dyspnea on exertion due to her weight Encounters Date Type Department Care Team Description 10/25/2024 11:32 AM ELECTRICAL ENGINEERING DESIGNER - 10/25/2024 11:59 PM ELECTRICAL ENGINEERING DESIGNER Hospital Encounter [address] [address] Acquired hypothyroidism Discharge Disposition: Discharge to home or self care 10/25/2024 11:30 AM ELECTRICAL ENGINEERING DESIGNER Lab [facility] Outpatient Lab at [address] [phone] Mixed hyperlipidemia (Primary Dx) 10/17/2024 8:45 AM ELECTRICAL ENGINEERING DESIGNER Office Visit [facility] Pulmonary at [address] [place] [phone] Stan Haq MD Cigarette nicotine dependence in remission (Primary Dx); Moderate persistent asthma without complication; Obstructive sleep apnea; Class 3 severe obesity due to excess calories without serious comorbidity with body mass index (BMI) of 40.0 to 44.9 in adult ([facility]) 10/09/2024 10:00 AM ELECTRICAL ENGINEERING DESIGNER Office Visit [facility] Primary Care at [address] [place] [address] Yoly Rivera NP Establishing care with new doctor, encounter for (Primary Dx); Hypertension, essential; Mixed hyperlipidemia; Prediabetes; Acquired hypothyroidism; Stage 3a chronic kidney disease (HCC); Environmental and seasonal allergies; Bipolar 1 disorder ([facility]); Recurrent major depressive disorder, in full remission (CMS/HCC) ([facility]); Moderate persistent asthma without complication; KRISHNA (obstructive sleep apnea); Morbid obesity with BMI of 40.0-44.9, adult ([facility]) 10/08/2024 8:44 AM ELECTRICAL ENGINEERING DESIGNER - 10/08/2024 11:59 PM ELECTRICAL ENGINEERING DESIGNER Hospital Encounter [facility] [address] [place] [address] Screening mammogram, encounter for Discharge Disposition: Discharge to home or self care 08/29/2024 9:30 AM ELECTRICAL ENGINEERING DESIGNER Office Visit [facility] Sleep Medicine at [address] [place] [phone] Sangita Aguiar MD KRISHNA (obstructive sleep apnea) (Primary Dx); Treatment-emergent central sleep apnea; Hypersomnia; Obesity, unspecified class, unspecified obesity type, unspecified whether serious comorbidity present 08/27/2024 7:00 PM ELECTRICAL ENGINEERING DESIGNER - 08/27/2024 11:59 PM ELECTRICAL ENGINEERING DESIGNER Hospital Encounter [facility] [address] [place] [address] KRISHNA (obstructive sleep apnea) Discharge Disposition: Discharge [...] on file Legal Sex Female 6:44 PM ELECTRICAL ENGINEERING DESIGNER Gender Identity Female 04/04/2022 5:01 PM CDT [...] Comments Blood Pressure 102/70 10/17/2024 8:28 AM ELECTRICAL ENGINEERING DESIGNER Pulse 85 10/17/2024 8:28 AM ELECTRICAL ENGINEERING DESIGNER Temperature 36.3 C (97.3 F) 10/17/2024 8:28 AM ELECTRICAL ENGINEERING DESIGNER Respiratory Rate 16 10/09/2024 10:1 9 AM ELECTRICAL ENGINEERING DESIGNER Oxygen Saturation 97% 10/17/2024 8:28 AM ELECTRICAL ENGINEERING DESIGNER Inhaled Oxygen Concentration - - Weight 124.1 kg (273 lb 9.6 oz) 10/17/2024 8:28 AM ELECTRICAL ENGINEERING DESIGNER Height 170.2 cm (5' 7 ) 10/17/2024 8:28 AM ELECTRICAL ENGINEERING DESIGNER Body Mass Index 42.85 10/17/2024 8:28 AM ELECTRICAL ENGINEERING DESIGNER Plan of Treatment Health Maintenance Due Date [...] Comments T4, FREE Routine 10/25/2024 11:37 AM ELECTRICAL ENGINEERING DESIGNER Acquired hypothyroidism TSH Routine 10/25/2024 11:37 AM ELECTRICAL ENGINEERING DESIGNER Acquired hypothyroidism SCREENING MAMMOGRAM BILATERAL W JACKY Schedule Routine, Read Routine (OP Routine) 10/08/2024 8:57 AM ELECTRICAL ENGINEERING DESIGNER Screening mammogram, encounter for PSG (SIMPLE) Routine 08/28/2024 KRISHNA (obstructive sleep apnea) HEPATITIS C ANTIBODY Routine 04/12/2024 9:35 AM CDT Encounter for hepatitis C screening test for low risk patient COLONOSCOPY Routine 08/04/2022 from Last 3 Months or Most Recently Relevant to Health Maintenance Results * TSH (10/25/2024 11:37 AM ELECTRICAL ENGINEERING DESIGNER) Thyroid Stimulating Hormone 2.81 0.30 - 4.20 mcIUnit/mL Blood 10/25/2024 11:3 7 AM ELECTRICAL ENGINEERING DESIGNER 10/25/2024 5:55 PM ELECTRICAL ENGINEERING DESIGNER Yoly Rivera NP LAB BLOOD ORDERABLES Fi nal Result Performing Organization Address [facility] Co de Phone Number CRIS STEVE [phone] [facility] [place] [address] * T4, free (10/25/2024 11:37 AM ELECTRICAL ENGINEERING DESIGNER) Free T4 0.99 0.90 - 1.70 ng/dL Blood 10/25/2024 11:3 7 AM ELECTRICAL ENGINEERING DESIGNER 10/25/2024 5:55 PM ELECTRICAL ENGINEERING DESIGNER Yoly Rivera NP LAB BLOOD ORDERABLES Fi nal Result Performing Organization Address [facility] Phone Number CRIS STEVE [address] [facility] [employer] [place] [address] * Screening Mammogram Bilateral W Jacky (10/08/2024 8:57 AM ELECTRICAL ENGINEERING DESIGNER) Anatomical Region Laterality Modality Breast Bilateral Mammography 10/08/2024 9:13 AM ELECTRICAL ENGINEERING DESIGNER Impressions 10/08/2024 9:13 AM ELECTRICAL ENGINEERING DESIGNER There is no mammographic evidence to suggest malignancy. The patient may continue screening mammography as per ACR guidelines. FINAL ASSESSMENT: BI-RADS Category 1: Negative. Electronically signed by: Maddi Mckinney M.D. Narrative 10/08/2024 9:13 AM ELECTRICAL ENGINEERING DESIGNER EXAMINATION: BILATERAL SCREENING MAMMOGRAM WITH TOMOGRAPHY HISTORY: [...] sleep study: Obstructive sleep apnea, persistent hypersomnolence [place] sleepiness score: 15 Weight: 272 lbs BMI: 42.60 Procedure: This overnight PAP titration polysomnogram was performed with the technologist infectious disease in attendance. Patient is studied with multiple [...] scored according to the criteria from The [place] Academy [employer] (AASM) Manual for [...] need for higher pressure. Sangita Aguiar MD [facility] Sleep Medicine Narrative Sangita Aguiar [...] - GENERAL ORDER ALISIA Final Result CRIS [id number] [address] Department [place] [address] * Colonoscopy (08/04/2022) Anatomical Region Laterality Modality Other Impressions 08/04/2022 Repeat in 5 years Tila Bernal NP ENDOSCOPY PROCEDURES Final Resul t from Last 3 Months or Most Recently Relevant to Health Maintenance Insurance IDPA [employer] PPO [employer] CHO[employer] PPO Care Teams Hand Winder Relationship Specialty Start Date End Date Yoly Rivera NP [address] [place] [address] PCP - General Family Medicine 10/08/24 Stan Haq MD [address] [place] [address] Consulting Physician Pulmonary Disease 10/09/24 Sangita Aguiar MD [address] [place] [address] Consulting Physician Sleep Medicine 10/09/24 Damian Carrizales MD [address] [place] [address] [address] [place] [address] Consulting Physician Gastroenterology 10/09/24 Jaz Sanders NP [address] [place] [address] Nurse Practitioner Nurse Practitioner 10/09/24
--- OUTSIDE RECORDS SUMMARY | 2024-11-20 13:59 | XMS_ITS | Patient Health Record ---
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 children and young adults, and serotonin [...] and more. - pcp labs per patient- obtain copy has light box- educated on proper use - educated to use for SAD- salvador start using 2. Generalized anxiety disorder - reported having chronic emotional numbness - current on Desvenlafaxine ER 25 mg daily- will stop realted to narcolepsy test 08/27/24 monitor for depression and anxiety monitor B/P Buspar decrease 5 mg three times a day- will stop realted to narcolepsy test 08/27/24 anxiety and depression 3. Recurrent hypersomnia -BIPAP see sleep specialist- schedule appt to discuss sleep and fatigue and r/t narcolepsy vs other dxn- scheduled 08/27/24 patient reported has to be off all rx 2 weeks starting 08/13/24 for sleep study to r/o Narcolepsy 08/27/24 monitor for depresison, anxiety, mood, shannen, hypomania, paranoia, delusions, psychosis will add rx as needed during the process plan to re-start rx as needed after sleep study completed will schedule to be seen every 2 weeks sleep apnea and r/o narcolepsy sleep hygiene 4. Chronic post-traumatic stress disorder 5. Long-term drug therapy Discussion Notes therapy obtain labs PCP 07/30/2024 Generalized anxiety disorder (ICD-10 - F41.1) Generalized Anxiety Disorder: Care Instructions material was published, Learning About Generalized Anxiety Disorder material was published, Generalized Anxiety Disorder: Care Instructions material was published, Learning About Generalized Anxiety Disorder material was published discussion with patient about course of treatment and patient instructions.- patient wants to keep all rx same at this time - will see sleep provider with sleep and fatigue issues- scheduled 08/27/24 sleep study for narcolespy and need ot be taper off all rx for study 1. Schizoaffective disorder, bipolar type - current on Vraylar 3 mg at bedtime - decrease Vraylar 1.5 mg daily educated on rx current on Wellbutrin XL 300 mg daily in am- decrease Wellbutrin XL 150 MG daily in am chronic flat affect, and emotions, fatigue, and motivation- monitor for shannen and psychosis last shannen 3 years ago SSRI side effects discussed including but not limited to, gastric upset, nausea, vomiting, diarrhea and/or constipation, weight changes, sexual side effects including loss of libido, increased suicidal thoughts/behavio rs in children and young adults, and serotonin [...] and more. - pcp labs per patient- obtain copy has light box- educated on proper use - educated to use for SAD- salvador start using 2. Generalized anxiety disorder - reported having chronic emotional numbness - current on Desvenlafaxine ER 50 MG DAILY- decrease 25 mg daily monitor for depression and anxiety monitor B/P current on Buspar 10 mg three times a day - decrease 5 mg three times a day- no refill neeed has 10 mg dose at home to split anxiety and depression 3. Recurrent hypersomnia -BIPAP see sleep specialist- schedule appt to discuss sleep and fatigue and r/t narcolepsy vs other dxn- scheduled 08/27/24 patient reported has to be off all rx 2 weeks starting 08/13/24 for sleep study to r/o Narcolepsy 08/27/24 monitor for depresison, anxiety, mood, shannen, hypomania, paranoia, delusions, psychosis will add rx as needed during the process plan to re-start rx after sleep study completed will schedule to be seen every 2 weeks sleep apnea and r/o narcolepsy sleep hygiene 4. Chronic post-traumatic stress disorder 5. Long-term drug therapy Discussion Notes therapy obtain labs PCP 07/20/2024 Generalized anxiety disorder (ICD-10 - F41.1) Generalized Anxiety Disorder: Care Instructions material was published, Learning About Generalized Anxiety Disorder material was published, Generalized Anxiety Disorder: Care Instructions material was published, Learning About Generalized Anxiety Disorder material was published discussion with patient about course of treatment and patient instructions.- patient wants to keep all rx same at this time - will see sleep provider with sleep and fatigue issues 1. Schizoaffective disorder, bipolar type - Vraylar 3 mg at bedtime - educated on rx Wellbutrin XL 300 mg daily in am chronic flat affect, and emotions, fatigue, and motivation- monitor for shannen and psychosis last shannen 3 years ago SSRI side effects discussed including but not limited to, gastric upset, nausea, vomiting, diarrhea and/or constipation, weight changes, sexual side effects including loss of libido, increased suicidal thoughts/behavio rs in children and young adults, and serotonin [...] and more. - pcp labs per patient- obtain copy has light box- educated on proper use - educated to use for SAD- salvador start using 2. Generalized anxiety disorder - reported having chronic emotional numbness - Desvenlafaxine ER 50 MG DAILY monitor for depression and anxiety monitor B/P Buspar 10 mg three times a day - anxiety and depression 3. Recurrent hypersomnia -BIPAP see sleep specialist- schedule appt to discuss sleep and fatigue and r/t narcolepsy vs other dxn sleep apnea and r/o narcolepsy sleep hygiene 4. Chronic post-traumatic stress disorder 5. Long-term drug therapy Discussion Notes therapy obtain labs PCP 06/12/2024 Generalized anxiety disorder (ICD-10 - F41.1) Generalized Anxiety Disorder: Care Instructions material was published, Learning About Generalized Anxiety Disorder material was published, Generalized Anxiety Disorder: Care Instructions material was published, Learning About Generalized Anxiety Disorder material was published discussion with patient about course of treatment and patient instructions. 1. Schizoaffective disorder, bipolar type - Vraylar 3 mg at bedtime - educated on rx Wellbutrin XL 300 mg daily in am mproved flat affect, and emotions, fatigue, and motivation- monitor for shannen and psychosis last shannen 3 years ago SSRI side effects discussed including but not limited to, gastric upset, nausea, vomiting, diarrhea and/or constipation, weight changes, sexual side effects including loss of libido, increased suicidal thoughts/behavio rs in children and young adults, and serotonin [...] and more. - pcp labs per patient- obtain copy has light box- educated on proper use - educated to use for SAD 2. Generalized anxiety disorder - reported having emotional numbness - will decrease Desvenlafaxine ER 50 MG DAILY monitor for depression and anxiety monitor B/P Buspar 10 mg three times a day - anxiety and depression 3. Recurrent hypersomnia -BIPAP see sleep specialist sleep hygiene 4. Chronic post-traumatic stress disorder 5. Long-term drug therapy Discussion Notes therapy obtain labs PCP 04/05/2024 Post-traumatic stress disorder, chronic (ICD-10 - F43.12) Post-Traumatic Stress Disorder (PTSD): Care Instructions material was published discussion with patient about course of treatment and patient instructions. 1. Schizoaffective disorder, bipolar type - Vraylar 3 mg at bedtime - educated on rx Wellbutrin XL 300 mg daily in am mproved flat affect, and emotions, fatigue, and motivation- monitor for shannen and psychosis last shannen 3 years ago SSRI side effects discussed including but not limited to, gastric upset, nausea, vomiting, diarrhea and/or constipation, weight changes, sexual side effects including loss of libido, increased suicidal thoughts/behavio rs in children and young adults, and serotonin [...] common with first generation antipsychotics) and more. labs completed 09/28/23 reviewed - pcp ordered labs 04/18 per patient has light box- educated on proper use - educated to use for SAD F25.0: Schizoaffective disorder, bipolar type Vraylar 3 mg capsule - Take 1 capsule(s) every day by oral route at bedtime for 30 days. Qty: (30) capsule Refills: 2 Pharmacy: [facility] [place] 2. Generalized anxiety disorder - Desvenlafaxine ER 100 MG DAILY Buspar 10 mg three times a day - anxiety and depression F41.1: Generalized anxiety disorder buspirone 10 mg tablet - Take 1 tablet(s) 3 times a day by oral route with meals for 90 days. Qty: (270) tablet Refills: 0 Pharmacy: [facility] [place] 3. Recurrent hypersomnia -BIPAP see sleep specialist G47.13: Recurrent hypersomnia 4. Chronic post-traumatic stress [id number]: Post-traumatic stress disorder, chronic 5. Long-term drug therapy Z79.899: Other assisted (current) drug therapy Discussion Notestherapy obtain labs PCP 06/12/2024 Post-traumatic stress disorder, chronic (ICD-10 - F43.12) Post-Traumatic Stress Disorder (PTSD): Care Instructions material was published, Post-Traumatic Stress Disorder (PTSD): Care Instructions material was published discussion with patient about course of treatment and patient instructions. 1. Schizoaffective disorder, bipolar type - Vraylar 3 mg at bedtime - educated on rx Wellbutrin XL 300 mg daily in am mproved flat affect, and emotions, fatigue, and motivation- monitor for shannen and psychosis last shannen 3 years ago SSRI side effects discussed including but not limited to, gastric upset, nausea, vomiting, diarrhea and/or constipation, weight changes, sexual side effects including loss of libido, increased suicidal thoughts/behavio rs in children and young adults, and serotonin [...] and more. - pcp labs per patient- obtain copy has light box- educated on proper use - educated to use for SAD 2. Generalized anxiety disorder - reported having emotional numbness - will decrease Desvenlafaxine ER 50 MG DAILY monitor for depression and anxiety monitor B/P Buspar 10 mg three times a day - anxiety and depression 3. Recurrent hypersomnia -BIPAP see sleep specialist sleep hygiene 4. Chronic post-traumatic stress disorder 5. Long-term drug therapy Discussion Notes therapy obtain labs PCP 07/20/2024 Post-traumatic stress disorder, chronic (ICD-10 - F43.12) Post-Traumatic Stress Disorder (PTSD): Care Instructions material was published, Post-Traumatic Stress Disorder (PTSD): Care Instructions material was published discussion with patient about course of treatment and patient instructions.- patient wants to keep all rx same at this time - will see sleep provider with sleep and fatigue issues 1. Schizoaffective disorder, bipolar type - Vraylar 3 mg at bedtime - educated on rx Wellbutrin XL 300 mg daily in am chronic flat affect, and emotions, fatigue, and motivation- monitor for shannen and psychosis last shannen 3 years ago SSRI side effects discussed including but not limited to, gastric upset, nausea, vomiting, diarrhea and/or constipation, weight changes, sexual side effects including loss of libido, increased suicidal thoughts/behavio rs in children and young adults, and serotonin [...] and more. - pcp labs per patient- obtain copy has light box- educated on proper use - educated to use for SAD- salvador start using 2. Generalized anxiety disorder - reported having chronic emotional numbness - Desvenlafaxine ER 50 MG DAILY monitor for depression and anxiety monitor B/P Buspar 10 mg three times a day - anxiety and depression 3. Recurrent hypersomnia -BIPAP see sleep specialist- schedule appt to discuss sleep and fatigue and r/t narcolepsy vs other dxn sleep apnea and r/o narcolepsy sleep hygiene 4. Chronic post-traumatic stress disorder 5. Long-term drug therapy Discussion Notes therapy obtain labs PCP 07/30/2024 Post-traumatic stress disorder, chronic (ICD-10 - F43.12) Post-Traumatic Stress Disorder (PTSD): Care Instructions material was published, Post-Traumatic Stress Disorder (PTSD): Care Instructions material was published discussion with patient about course of treatment and patient instructions.- patient wants to keep all rx same at this time - will see sleep provider with sleep and fatigue issues- scheduled 08/27/24 sleep study for narcolespy and need ot be taper off all rx for study 1. Schizoaffective disorder, bipolar type - current on Vraylar 3 mg at bedtime - decrease Vraylar 1.5 mg daily educated on rx current on Wellbutrin XL 300 mg daily in am- decrease Wellbutrin XL 150 MG daily in am chronic flat affect, and emotions, fatigue, and motivation- monitor for shannen and psychosis last shannen 3 years ago SSRI side effects discussed including but not limited to, gastric upset, nausea, vomiting, diarrhea and/or constipation, weight changes, sexual side effects including loss of libido, increased suicidal thoughts/behavio rs in children and young adults, and serotonin [...] and more. - pcp labs per patient- obtain copy has light box- educated on proper use - educated to use for SAD- salvador start using 2. Generalized anxiety disorder - reported having chronic emotional numbness - current on Desvenlafaxine ER 50 MG DAILY- decrease 25 mg daily monitor for depression and anxiety monitor B/P current on Buspar 10 mg three times a day - decrease 5 mg three times a day- no refill neeed has 10 mg dose at home to split anxiety and depression 3. Recurrent hypersomnia -BIPAP see sleep specialist- schedule appt to discuss sleep and fatigue and r/t narcolepsy vs other dxn- scheduled 08/27/24 patient reported has to be off all rx 2 weeks starting 08/13/24 for sleep study to r/o Narcolepsy 08/27/24 monitor for depresison, anxiety, mood, shannen, hypomania, paranoia, delusions, psychosis will add rx as needed during the process plan to re-start rx after sleep study completed will schedule to be seen every 2 weeks sleep apnea and r/o narcolepsy sleep hygiene 4. Chronic post-traumatic stress disorder 5. Long-term drug therapy Discussion Notes therapy obtain labs PCP 08/13/2024 Post-traumatic stress disorder, chronic (ICD-10 - F43.12) Post-Traumatic Stress Disorder (PTSD): Care Instructions material was published, Post-Traumatic Stress Disorder (PTSD): Care Instructions material was published discussion with patient about course of treatment and patient instructions.- patient wants to keep all rx same at this time - will see sleep provider with sleep and fatigue issues- scheduled 08/27/24 sleep study for narcolespy and need to be taper off all rx for study ALL RX STOPPED 08/13/24 FOR SLEEP STUDY NARCOLEPSY 08/27/24 1. Schizoaffective disorder, bipolar type - current on Vraylar 1.5 mg daily- salv[place] stop rx realted to narcolepsy test 08/27/24 educated on rx current on Wellbutrin XL 150 MG daily in am- will stop realted to narcolepsy test 08/27/24 chronic flat affect, and emotions, fatigue, and motivation- monitor for shannen and psychosis last shannen 3 years ago SSRI side effects discussed including but not limited to, gastric upset, nausea, vomiting, diarrhea and/or constipation, weight changes, sexual side effects including loss of libido, increased suicidal thoughts/behavio rs in children and young adults, and serotonin [...] and more. - pcp labs per patient- obtain copy has light box- educated on proper use - educated to use for SAD- salvador start using 2. Generalized anxiety disorder - reported having chronic emotional numbness - current on Desvenlafaxine ER 25 mg daily- will stop realted to narcolepsy test 08/27/24 monitor for depression and anxiety monitor B/P Buspar decrease 5 mg three times a day- will stop realted to narcolepsy test 08/27/24 anxiety and depression 3. Recurrent hypersomnia -BIPAP see sleep specialist- schedule appt to discuss sleep and fatigue and r/t narcolepsy vs other dxn- scheduled 08/27/24 patient reported has to be off all rx 2 weeks starting 08/13/24 for sleep study to r/o Narcolepsy 08/27/24 monitor for depresison, anxiety, mood, shannen, hypomania, paranoia, delusions, psychosis will add rx as needed during the process plan to re-start rx as needed after sleep study completed will schedule to be seen every 2 weeks sleep apnea and r/o narcolepsy sleep hygiene 4. Chronic post-traumatic stress disorder 5. Long-term drug therapy Discussion Notes therapy obtain labs PCP 09/03/2024 Post-traumatic stress disorder, chronic (ICD-10 - F43.12) Post-Traumatic Stress Disorder (PTSD): Care Instructions material was published, Post-Traumatic Stress Disorder (PTSD): Care Instructions material was published discussion with patient about course of treatment and patient instructions.- patient wants to keep all rx same at this time - will see sleep provider with sleep and fatigue issues- scheduled 08/27/24 sleep study for narcolespy and need to be taper off all rx for study ALL RX STOPPED 08/13/24 FOR SLEEP STUDY 08/27/24 r/o in near future for NARCOLEPSY 1. Schizoaffective disorder, bipolar type -monitor no s/s presently hx Vraylar 1.5 mg daily- stop rx realted to sleep testt 08/27/24 educated on rx restart Wellbutrin XL 150 MG daily in am- chronic flat affect, and emotions, fatigue, and motivation- monitor for shannen and psychosis last shannen 3 years ago SSRI side effects discussed including but not limited to, gastric upset, nausea, vomiting, diarrhea and/or constipation, weight changes, sexual side effects including loss of libido, increased suicidal thoughts/behavio rs in children and young adults, and serotonin [...] and more. - pcp labs per patient- obtain copy has light box- educated on proper use - educated to use for SAD- salvador start using see PCP thyroid and hormones to r/o hormonal and menopausal 2. Generalized anxiety disorder - reported having chronic emotional numbness - restart Desvenlafaxine ER 25 mg daily- monitor for depression and anxiety monitor B/P hx Buspar 5 mg three times a day- stop realted to narcolepsy test 08/27/24 anxiety and depression monitor for shannen and hypomania 3. Recurrent hypersomnia -BIPAP see sleep specialist- schedule appt to discuss sleep and fatigue and r/t narcolepsy vs other dxn- scheduled 08/27/24 patient reported has to be off all rx 2 weeks starting 08/13/24 for sleep study to r/o Narcolepsy 08/27/24 monitor for depresison, anxiety, mood, shannen, hypomania, paranoia, delusions, psychosis will add rx as needed during the process plan to re-start rx as needed after sleep study completed will schedule to be seen every 2 weeks sleep apnea and r/o narcolepsy sleep hygiene 4. Chronic post-traumatic stress disorder 5. Long-term drug therapy Discussion Notes therapy obtain labs PCP 10/12/2024 Post-traumatic stress disorder, chronic (ICD-10 - F43.12) Post-Traumatic Stress Disorder (PTSD): Care Instructions material was published, Post-Traumatic Stress Disorder (PTSD): Care Instructions material was published discussion with patient about course of treatment and patient instructions.- patient wants to keep all rx same at this time - will see sleep provider with sleep and fatigue issues- scheduled 08/27/24 sleep study for narcolespy and need to be taper off all rx for study SLEEP STUDY 08/27/24 r/o in near future [...] effects including loss of libido, increased suicidal thoughts/behavio rs in children and young adults, and serotonin [...] use - educated to use for SAD- salvador start using see PCP thyroid and hormones to r/o hormonal and menopausal 2. Generalized anxiety disorder - reported having chronic emotional numbness - Increase Desvenlafaxine ER 50 mg daily- for depression [...] disorder 5. Long-term drug therapy Discussion Notes therapy continue obtain labs PCP 11/06/2024 Post-traumatic [...] effects including loss of libido, increased suicidal thoughts/behavio rs in children and young adults, and serotonin [...] needed today therapy continue obtain labs PCP 04/05/2024 Other Cariprazine Ora l Capsule (CARIPRAZINE - ORAL) material was published, Bupropion Extended Release Oral Tablet (BUPROPION HCL EXTENDED-RELEASE (ANTIDEPRESSANT) - ORAL) material was published, Buspirone Oral Tablet (BUSPIRONE - ORAL) material was published, Desvenlafaxine Extended Release Oral Tablet (DESVENLAFAXINE EXTENDED-RELEASE - ORAL) material was published discussion with patient about course of treatment and patient instructions. 1. Schizoaffective disorder, bipolar type - Vraylar 3 mg at bedtime - educated on rx Wellbutrin XL 300 mg daily in am mproved flat affect, and emotions, fatigue, and motivation- monitor for shannen and psychosis last shannen 3 years ago SSRI side effects discussed including but not limited to, gastric upset, nausea, vomiting, diarrhea and/or constipation, weight changes, sexual side effects including loss of libido, increased suicidal thoughts/behavio rs in children and young adults, and serotonin [...] common with first generation antipsychotics) and more. labs completed 09/28/23 reviewed - pcp ordered labs 04/18 per patient has light box- educated on proper use - educated to use for SAD F25.0: Schizoaffective disorder, bipolar type Vraylar 3 mg capsule - Take 1 capsule(s) every day by oral route at bedtime for 30 days. Qty: (30) capsule Refills: 2 Pharmacy: [facility] [id number] IN [place] 2. Generalized anxiety disorder - Desvenlafaxine ER 100 MG DAILY Buspar 10 mg three times a day - anxiety and depression F41.1: Generalized anxiety disorder buspirone 10 mg tablet - Take 1 tablet(s) 3 times a day by oral route with meals for 90 days. Qty: (270) tablet Refills: 0 Pharmacy: [facility] [place] 3. Recurrent hypersomnia -BIPAP see sleep specialist G47.13: Recurrent hypersomnia 4. Chronic post-traumatic stress [id number]: Post-traumatic stress disorder, chronic 5. Long-term drug therapy Z79.899: Other assisted (current) drug therapy Discussion Notestherapy obtain labs PCP 06/07/2024 Other Client reports her beggest stressor at this time has to do with her son and politics. I don't want to lose him again but I don't want to talk politics with him as our views are different. Therapist actively listened to client and asked questions for clarification . Therapist then utilized a cogntive behavioral intervention to help client explore strategies to minimize her anxiety (talk to son instead of ignoring his calls and texts and be willing to set some boundaries in regard to the topic to avoid). 06/12/2024 Other Bupropion Extended Release Oral Tablet (BUPROPION HCL EXTENDED-RELEASE (ANTIDEPRESSANT) - ORAL) material was published, Buspirone Oral Tablet (BUSPIRONE - ORAL) material was published, Sleep Studies: About This Test material was published, Insomnia: Care Instructions material was published, Cariprazine Oral Capsule (CARIPRAZINE - ORAL) [FDB] material was published discussion with patient about course of treatment and patient instructions. 1. Schizoaffective disorder, bipolar type - Vraylar 3 mg at bedtime - educated on rx Wellbutrin XL 300 mg daily in am mproved flat affect, and emotions, fatigue, and motivation- monitor for shannen and psychosis last shannen 3 years ago SSRI side effects discussed including but not limited to, gastric upset, nausea, vomiting, diarrhea and/or constipation, weight changes, sexual side effects including loss of libido, increased suicidal thoughts/behavio rs in children and young adults, and serotonin [...] and more. - pcp labs per patient- obtain copy has light box- educated on proper use - educated to use for SAD 2. Generalized anxiety disorder - reported having emotional numbness - will decrease Desvenlafaxine ER 50 MG DAILY monitor for depression and anxiety monitor B/P Buspar 10 mg three times a day - anxiety and depression 3. Recurrent hypersomnia -BIPAP see sleep specialist sleep hygiene 4. Chronic post-traumatic stress disorder 5. Long-term drug therapy Discussion Notes therapy obtain labs PCP 10/03/2024 Other Client reports she has been experiencing increased anxiety due to her daughter being investigated by DCFS. Client reports that while it was inevitable that this would happen, she feels her daughter is not taking this seriously enough. Therapist actively listened to client and helped her to explore strategies to minimize her anxiety about the situation (using the STOP method to stop these thoughts and use this as a segway to engage in other thoughts, utilizing activities that usuallly help her to calm). PHQ-24 severe SUHAS-21 severe 10/18/2024 Other Client is stressing that her daughter has gone no contact with client. Client described what she thought she should be doing for her daughter and daughter's family. Therapist actively listened to client and helped her to gain insight to the enabling nature of her relationship with her daughter. Therapist also utilized a cognitive intervention to help client explore strategies to set boundaries with her daughter and also for client to ensure she is taking care of herself. PHQ=24 severe SUHAS=21 severe 11/06/2024 Other Client reports she has not [...] acceptance. Plan Of Treatment Next Appt Details Provider Name:Jaz Sanders , 02/04/2025 11:45:00 AM, [address], [facility] [address], [place], [address], Insurance Providers Payer Name Payer Address Payer Phone Subscriber Number Group Number Insured Name Patient Relationship to Insured Coverage Start Date Coverage End Date [employer] [address] [place] [address] [id number] RUI GRIDER Self - patient is the insured [place] [address] [address] [place] [address] [id number] RUI GRIDER Self - patient is the insured Medical (General) History Medical History History ICD Code Problems: Chronic post-traumatic stress disorder Generalized anxiety disorder Long-term drug therapy Moderate recurrent major depression Obesity Psychotic disorder Recurrent hypersomnia Schizoaffective disorder Schizoaffective disorder, bipolar type ,sleep apnea asthma Surgical History Surgery Date(Month/Year) Hysterectomy (55812) Removal of gallbladder (28422) Sinus surgery Any surgical history
--- OUTSIDE RECORDS SUMMARY | 2024-11-20 13:59 | XMS_ITS | Clinical Summary ---
Author Organization [facility] [employer] Address [address] [place] [address] Care Team Providers Care Sulky Driver Name Role Phone Tila Bernal JOSE LUIS-CREELER Primary Care Provider [phone]- [phone] Source Comments [facility],non-owned Affiliates and Associated Physician Practices is amultiple site organization consisting of ambulatory clinics and hospital sitesin [place], [place], [place] and [place]. This disclosure is being madepursuant to the Care Everywhere program and may not contain all information available regarding this patient. Last updated 18.[facility] Allergies No known active allergies Medications * [...] Comments Blood Pressure 102/74 08/04/2021 8:48 AM SPECIAL NEEDS NANNY Pulse 99 08/04/2021 8:48 AM SPECIAL NEEDS NANNY Temperature 37.1 C (98.8 F) 06/29/2017 10:57 AM CDT Respiratory Rate 14 08/04/2021 8:48 AM SPECIAL NEEDS NANNY Oxygen Saturation 93% 06/29/2017 10:57 AM CDT Inhaled Oxygen Concentration - - Weight 108.4 kg (239 lb) 08/04/2021 8:48 AM SPECIAL NEEDS NANNY Height 166.4 cm (5' 5.5 ) 06/28/2017 [...] 2:34 PM 06/29/2017 2:48 PM Care Teams Sulky Driver Relationship Specialty Start Date End Date Tila Bernal APRN-CNP [facility] - General 08/16/22
--- OUTSIDE RECORDS SUMMARY | 2024-11-20 13:59 | XMS_ITS | Patient Health Summary ---
Author Organization [facility] Address [address] [place] [address] Care Team Providers Care Cork Floor Installer Name Role Phone Tila Bernal JOSE LUIS-COMPLAINT INVESTIGATOR Primary Care Provider [phone]- [phone] Note from [facility],non-owned Affiliates and Associated Physician Practices is amultiple site organization consisting of ambulatory clinics and hospital sitesin [place], [place], [place] and [place]. This disclosure is being madepursuant to the Care Everywhere program and may not contain all information available regarding this patient. Last updated 18.[facility] Allergies No known active allergies Medications * [...] Comments Blood Pressure 102/74 08/04/2021 8:48 AM PLUMBING DRAFTER Pulse 99 08/04/2021 8:48 AM PLUMBING DRAFTER Temperature 37.1 C (98.8 F) 06/29/2017 10:57 AM CDT Respiratory Rate 14 08/04/2021 8:48 AM PLUMBING DRAFTER Oxygen Saturation 93% 06/29/2017 10:57 AM CDT Inhaled Oxygen Concentration - - Weight 108.4 kg (239 lb) 08/04/2021 8:48 AM PLUMBING DRAFTER Height 166.4 cm (5' 5.5 ) 06/28/2017 [...] the time period is included. Valerie Cochran OIL AND GAS SPECIALIST-COMPLAINT INVESTIGATOR SCANNING ONLY * HOLTER MONITOR (05/26/2021) Valerie Cochran OIL AND GAS SPECIALIST-COMPLAINT INVESTIGATOR SCANNING ONLY * EKG (05/26/2021) Scanned Document [...] Blood BLOOD SPECIMEN / Unknown Valerie Cochran APRN-COMPLAINT INVESTIGATOR LAB - CHEMISTRY ORDERABLES * VAS CAROTID DUPLEX LTD (04/16/2019) Anatomical Region Laterality Modality Neck Other Scanned Document VASCULAR LAB ORDERAB LES * CARDIAC HOLTER MONITOR ORDER (05/16/2018) Scanned Document CARDIAC SERVICES ORD ERABLES * XR CHEST 2VW (05/11/2018) Anatomical Region Laterality Modality Chest Other Valerie Cochran APRN-COMPLAINT INVESTIGATOR DIAGNOSTIC IMAG ING ORDERABLES * CARDIAC RHYTHM STRIP ORDER (06/30/2017 10:41 PM CDT) Narrative 06/30/2017 10:41 PM CDT Ordered by an unspecified provider. Scanned Document CARDIAC SERVICES ORD ERABLES * (ABNORMAL) PTH INTACT (06/29/2017 6:31 AM CDT) PTH Intact 11(L) 14 - 72 pg/mL 06/29/2017 7:42 AM CDT [facility] Calcium 8.6 8.5 - 10.1 mg/dL 06/29/2017 7:42 AM CDT [facility] Blood BLOOD SPECIMEN / Unknown Lab Venipuncture / Unknown 06/29/2017 6:31 AM CDT 06/29/2017 6:35 AM CDT Kain Russo MD LAB - CHEMISTRY VIÁN MORENO Performing Organization Address [facility]/ZIP Co de Phone Number [facility] [address] [place] [address] * CALCIUM BLOOD (06/29/2017 6:31 AM CDT) Only the most recent of2 resultswithin the time period is included. Calcium 8.7 8.5 - 10.1 mg/dL 06/29/2017 6:45 AM CDT [facility] Blood BLOOD SPECIMEN / Unknown Lab Venipuncture / Unknown 06/29/2017 6:31 AM CDT 06/29/2017 6:35 AM CDT Kain Russo MD LAB - CHEMISTRY IVÁN MORENO Performing Organization Address [facility] Co de Phone Number [facility] [address] [place] [address] * (ABNORMAL) BASIC METABOLIC PANEL (CALCIUM TOTAL) (06/28/2017 5:55 PM CDT) Glucose 131(H) 74 - 106 mg/dL 06/28/2017 6:21 PM CDT [facility] Sodium 141 136 - 145 mmol/L 06/28/2017 6:21 PM CDT [facility] Potassium 4.6 3.5 - 5.1 mmol/L 06/28/2017 6:21 PM CDT [facility] Chloride 107 98 - 107 mmol/L 06/28/2017 6:21 PM CDT [facility] CO2 28 22 - 31 mmol/L 06/28/2017 6:21 PM CDT [facility] Calcium 8.8 8.5 - 10.1 mg/dL 06/28/2017 6:21 PM T [facility] Anion Gap 6(L) 8 - 16 mmol/L 06/28/2017 6:21 PM CDT [facility] BUN 14 7 - 21 mg/dL 06/28/2017 6:21 PM CDT [facility] Creatinine 0.97 0.50 - 1.30 mg/dL 06/28/2017 6:21 PM CDT [facility] eGFR by MDRD >60 >60 mL/min/1.7 3m2 06/28/2017 6:21 PM CDT [facility] eGFR by MDRD >60 >60 mL/min/1.7 3m2 06/28/2017 6:21 PM CDT [facility] Blood BLOOD SPECIMEN / Unknown Lab Venipuncture / Unknown 06/28/2017 5:55 PM CDT 06/28/2017 6:00 PM CDT Kain Russo MD LAB - CHEMISTRY IVÁN MORENO [facility] [address] [place] [id number] * (ABNORMAL) PTH INTACT W/O CALCIUM (06/28/2017 11:51 AM CDT) Only the most recent of6 resultswithin the time period is included. PTH Intact 13(L) 14 - 72 pg/mL 06/28/2017 12:32 PM CDT [facility] Blood BLOOD SPECIMEN / Unknown Venipuncture / Unknown 06/28/2017 11:51 AM CDT 06/28/2017 11:51 AM CDT Kain Russo MD LAB - CHEMISTRY IVÁN MORENO [facility] [address] [place] [address] * GROSS + MICRO EXAM (STL) (06/28/2017 8:37 AM CDT) Case Report Surgical Pathology Report Case: [id number] Authorizing Provider: Kain Russo MD Collected: 06/28/2017 08:37 AM Ordering Location: [facility] Received: 06/28/2017 08:48 AM Pathologist: Sharon Avila MD Specimens: A) - Parathyroid Gland, Left anterior parathyroid B) - Parathyroid Gland, Left superior parathyroid C) - Parathyroid Biopsy, Right Inferior Parathyroid D) - Tissue, Right Carotid [place] Content E) - Tissue, Left Carotid [place] Content F) - Parathyroid Gland, Right Anterior Parathyroid 07/01/2017 8:50 AM [facility] Final Diagnosis A. Left anterior [...] Parathyroid tissue not identified 07/01/2017 8:50 AM [facility] Frozen Section FSA: Left anterior [...] 6, at 11:46 (KL) 07/01/2017 8:50 AM [facility] Frozen Section Pathologist(s ) Sharon Avila M.D. 07/01/2017 8:50 AM [facility] Gross Description The specimens are [...] partially membranous and focally brown tissue. A retail account representative section of this tissue is submitted [...] in F1. TANIA/zay 07/01/2017 8:50 AM T [facility] Microscopic Description The frozen section diagnoses [...] of malignancy. KL/na 07/01/2017 8:50 AM CDT [facility] Disclaimer All histochemical and/or immunohistochemical results are interpreted with controls that demonstrate appropriate staining reactions before reporting results. Note on use of immunocytochemistry reagents: This test was developed and its performance characteristic determined by [facility], Department of Laboratory Medicine. It has not been cleared or approved by the U.S. Food and Drug Administration (FDA). The FDA has determined that such clearance or approval is not necessary. The test is used for clinical purpose. It should not be regarded as investigational or for research. This laboratory is certified to perform high complexity testing. 07/01/2017 8:50 AM CDT [facility] Embedded Images 07/01/2017 8:50 AM CDT [facility] Pathology/Cytology ENTIRE PARATHYROID GLAND / Unknown [...] Russo MD LAB - PATHOLOGY/CYTO LOGY ORDERABLES [facility] [address] [address] Care Teams Cork Floor Installer Relationship Specialty Start Date End Date Tila Bernal APRN-CHANDANA PCP - General 11/21/22
--- OUTSIDE RECORDS SUMMARY | 2024-11-20 13:59 | XMS_ITS | Referral Summary ---
Author Organization [facility] Address [address] [place] [address] Care Team Providers Care Patient Account Analyst Name Role Phone Tila Bernal JOSE LUIS-CARGO WORKER Primary Care Provider +1- [phone] Source Comments [facility],non-owned Affiliates and Associated Physician Practices is amultiple site organization consisting of ambulatory clinics and hospital sitesin [place], [place], [place] and [place]. This disclosure is being madepursuant to the Care Everywhere program and may not contain all information available regarding this patient. Last updated 18.[facility] Allergies No known active allergies Medications * [...] Comments Blood Pressure 102/74 08/04/2021 8:48 AM CYBER SYSTEMS ENGINEER Pulse 99 08/04/2021 8:48 AM CYBER SYSTEMS ENGINEER Temperature 37.1 C (98.8 F) 06/29/2017 10:57 AM CDT Respiratory Rate 14 08/04/2021 8:48 AM CYBER SYSTEMS ENGINEER Oxygen Saturation 93% 06/29/2017 10:57 AM CDT Inhaled Oxygen Concentration - - Weight 108.4 kg (239 lb) 08/04/2021 8:48 AM CYBER SYSTEMS ENGINEER Height 166.4 cm (5' 5.5 ) 06/28/2017 6:37 AM CDT Body Mass Index 39.17 06/28/2017 6:37 AM CDT Plan of Treatment Not on file Advance Directives * Full Code (Latest Code Status on File) Date Activated Date Inactivated Comments 06/28/2017 2:34 PM 06/29/2017 2:48 PM Care Teams Patient Account Analyst Relationship Specialty Start Date End Date Tila Bernal APRN-CHANDANA PCP - General 08/16/22
== END 2024-11-20 12:47 | disposition home or self-care (01) ==
PROVIDERS: Emergency Provider Emergency Medicine
DX: S43.402A Unspecified sprain of left shoulder joint, initial encounter (principal); X50.0XXA Overexertion from strenuous movement or load, initial encounter; Z79.82 Long term (current) use of aspirin; Z87.891 Personal history of nicotine dependence
CPT/HCPCS: 73030; 96372; 99283; J1885

== ENCOUNTER 2025-05-30 10:34 | Outpatient (CLI) | payer OTHER, MEDICAID, SELFPAY ==
--- OUTSIDE RECORDS SUMMARY | 2025-05-29 04:30 | XMS_ITS ---
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 Name Role Phone Yoly Markham Primary Care Provider Un available Jaz Sanders Unavailable [phone] Allergies Allergen (clinical drug ingredient) Drug/Non Drug Allergy documented on EMR Reaction Allergy Type Onset Date Status Norflex Unknown Drug Allergy 11/21/2023 Active REASON FOR VISIT follow-up, Follow up psychological reason Medications Medication SIG (Take, Route, Frequency, Duration) Notes Start Date End Date Status Gabapentin 300 MG Capsule 1 capsule Orally three times a day Active lamoTRIgine 25 MG Tablet 1 tablet for 2 weeks then increase 2 tablets daily Orally daily; Duration: 30 days 05/29/2025 Active busPIRone HCl 15 MG Tablet 1 tablet Oral three times a day; Duration: 90 days 05/29/2025 Active buPROPion HCl ER (XL) 150 MG Tablet Extended Release 24 Hour 1 tablet Oral; Duration: 90 days 05/29/2025 Active hydrOXYzine HCl 25 MG Tablet 1 tablet as needed Orally twice a day; Duration: 90 days pa approved 05/29/2025 Active Desvenlafaxine Succinate ER 50 MG Tablet Extended Release 24 Hour 1 tablet Oral Once a day; Duration: 90 days d/c 25 mg dose 05/29/2025 Active Modafinil 200 MG Tablet Oral 12/29/2023 Not-Taking metFORMIN HCl ER 500 MG Tablet Extended Release 24 Hour TAKE 1 TABLET BY MOUTH EVERY DAY WITH BREAKFAST Oral; Duration: 90 Days Active Trelegy Ellipta 200-62.5-25 MCG/ACT Aerosol Powder Breath Activated INHALE 1 PUFF DAILY Inhalation; Duration: 30 Days Active Vraylar 1.5 mg Capsule take one capsule daily Oral bedtime; Duration: 90 days 05/29/2025 Active Cyclobenzaprine HCl 10 MG Tablet TAKE ONE-HALF TO 1 TABLET (5-10 MG TOTAL) BY MOUTH 3 (THREE) TIMES A DAY NEEDED FOR MUSCLE SPASMS Oral; Duration: 20 Days Active Phentermine HCl 30 MG Capsule TAKE 1 CAPSULE BY MOUTH EVERY DAY IN THE MORNING Oral; Duration: 30 Days Active Levothyroxine Sodium 50 MCG Tablet Oral 12/29/2023 Active Atorvastatin Calcium 80 MG Tablet Oral 12/29/2023 Active Linzess 72 mcg Capsule Oral 12/29/2023 Active Ibuprofen 800 MG Tablet 1 tablet with food or milk as needed Orally every 8 hrs Active Tylenol 325 MG Tablet 1 tablet as needed Orally every 4 hours Active ProAir HFA 108 (90 Base) MCG/ACT Aerosol Solution Inhalation 12/29/2023 Active WIXELA INHUB 100 MCG-50 MCG/DOSE POWDER FOR INHALATION *Reorder from [facility] for eRx and Interaction Alerts* 12/29/2023 Active Metoprolol Succinate ER 25 MG Tablet Extended Release 24 Hour Oral 12/29/2023 Active Social History Tobacco Use: Social History Observation Description Date Details (start date - stop date) Former Smoker NA - NA Sex Assigned At : Social History Observation Description Sex Assigned At Female Social History Miscellaneous: Social Info Question Answer Notes Advance Care Planning Are you your own decision-maker Yes Do you have Power of Distribution [facility] Assistant for [facility] or [facility]? No Drug/Alcohol: Social Info Question Answer Notes AUDIT-C (Standard) Did you have a drink containing alcohol in the past year? No Tobacco Use: Social Info Question Answer Notes Tobacco Control (Standard) Tobacco use: Former smoker How long has it been since you last smoked? 1-5 years Additional Details Category Social Info Options Details Migrated Social History Migrated Social History Alcohol Intake: None 07/22/2022,Tobacco Years: Former smoker 07/22/2022 Drug/Alcohol: Do you smoke marijuana? Den ies Do you drink alcohol? No Vital Signs Blood pressure systolic 121 mm Hg 05/29/20 25 Blood pressure diastolic 80 mm Hg 025 Heart Rate 111 /min 05/29/2025 Respiratory Rate 16 /min 05/29/2025 Height 67.00 in 05/29/2025 Weight 308 lbs 05/29/2025 BMI 48.23 kg/m2 05/29/2025 Height-cm 170.18 cm 05/29/2025 Weight-kg 139.71 kg 05/29/2025 Encounters Encounter Location Date Provider Diagnosis [facility] [address] [place] [address] 05/29/2025 Jaz Theralejandro Sleep apnea, unspeci fied G47.30 ; Other intermediate (current) drug therapy Z79.899 ; Schizoaffective disorder, depressive type F25.1 ; Generalized anxiety disorder F41.1 ; Post-traumatic stress disorder, chronic F43.12 and Weight gain R63.5 Assessments Encounter Date Diagnosis (ICD Code) Assessment Notes Treatment Notes Treatment Clinical Notes Section Notes 05/29/2025 Sleep apnea, unspecified (ICD-10 - G47.30) Learning About Sleep Apnea material was published, Sleep Apnea: Care Instructions material was published, Heart Failure and Sleep Apnea: Care Instructions material was published, Learning About Sleep Apnea material was published, Sleep Apnea: Care Instructions material was published, Learning About Sleep Apnea material was published, Sleep Apnea: Care Instructions material was published, Learning About Bilevel Positive Airway Pressure (BPAP) material was published, Sleep Apnea: Care Instructions material was published, Learning About Sleep Apnea material was published, Learning About CPAP for Sleep Apnea material was published reviewed report in [facility] (05/22/2025) Seventeen 3 to 8 mm polyps in the transverse colon, ascending colon, and cecum, removed with cold snare. Four small (4-6 mm) polyps in the sigmoid and descending colon, resection not attempted due to prolonged procedure time and difficult anatomy. Erythematous mucosa in the sigmoid colon, biopsied. Significant looping of the colon. Diverticulosis in the sigmoid and descending colon. External and internal hemorrhoids. Recommendation: Repeat colonoscopy in 1 year for surveillance and polypectomy of remaining polyps. XR Hip Left 2 or 3 Views (04/24/2025) Mild degenerative changes with subchondral sclerosis, osteophyte formation, and maintained joint space. CT Abdomen Pelvis W Contrast (04/11/2025) Mild mucosal thickening of mid to distal transverse colon, descending colon, and sigmoid colon. Minimal to mild left pelvicaliectasis and ureterectasis; multiple nonobstructing left renal calculi. Circumferential mucosal thickening of the urinary bladder. Scattered colonic diverticula. Diffuse hepatic steatosis. Imaging SI Joint Injection Left (55041) (05/03/2025) The images from this study are not interpreted by Radiology. Please refer to the physician's procedure / OR operative note. XR Hip Left 2+ Vw (12/03/2024) Mild left hip osteoarthritis. Unchanged bone island in the left sacrum. MRI Hip Left WO Contrast (02/12/2025) Mild bilateral hip chondrosis. Mild bilateral greater trochanteric bursitis. 10 mm left S3 sclerotic lesion, slightly increased in size since 2017, most consistent with bone island. 18 mm unchanged T1 heterogeneously hypointense lesion in posterior right iliac bone. Multifocal Tarlov cysts in the sacrum. Mild lumbar spondylosis at L4-L5. Screening Mammogram Bilateral W Jacky (10/08/2024) No mammographic evidence to suggest malignancy. BI-RADS Category 1: Negative. Scattered areas of fibroglandular density. No suspicious masses, calcifications, or abnormal lymph nodes.. discussion with patient about course of treatment and patient instructions.- patient wants to keep all rx same at this time - 1. Schizoaffective disorder, bipolar type depression currently discss and educated on adding Lamotrigine 25 mg daily for 2 weeks then increase to 50 mg daily Lamotrigine lamotrigine has a serious rashes requiring hospitalization and discontinue treatment including Yoandy Everton syndrome rare case of toxic epidermal necrolysis and cache related deaths. Incidence with adjunct of epilepsy treatment 0.8% in 2 to 16 years old and 0.3% in adults, bipolar and other mood disorders incidence 0.8% this initial monotherapy and 0.13% as adjunctive treatment. Other risk factor may include concomitant use of valproate acid derivative or exceeding initial lamotrigine does or does as clinician recommendation; most life-threatening rash of occurring first 2 to 8 week of treatment with isolated cases after prolonged treatment; though benign may occur, discontinue treatment at first sign of rash unless clearly not a drug related; TC treatment may not prevent trash from becoming life-threatening or permanently disabling or disfiguring. Comment reaction include, nausea/vomiting, dizziness/vertigo , visual disturbances, somnolence, ataxia, pruritus/rash, pharyngitis, headache, rhinitis, diarrhea, fever, asthenia, insomnia, tremor, abdominal pain, cough, accidental injury, constipation, dysmenorrhea, incoordination, anxiety, seizures, irritability, anorexia, xerostomia, and photosensitivity. Serious reactions include: Rash, severe; Carroll Everton syndrome; toxic epidermal necrosis; injury edema, hypersensitivity reactions. Including fatal, multiple organ failure to safe fatal, rash with eosinophilia systemic symptoms, DIC, neutropenia, leukopenia, thrombocytopenia, pancytopenia, aplastic anemia, hemolytic anemia, i pancreatitis, hepatic failure, rhabdomyolysis, worsening of suicidal ideation, worsening of depression, cleft lip/palate [first trimester use] DO not Change Cosmetic, perfumes or soap for next 4 weeks. The patient was advice to take lamotrigine as prescribed the patient was instructed not to deviate from the prescription dosages. Stop lamotrigine is the first sign of rash. Patient was insisted to inform office if any of the serious side effect develops. Vraylar 1.5 mg daily- for depression and mood educated on rx AIMS- 1 05/07/25 - Pateint reported rt hand opens at times and drops items not noted today Wellbutrin XL 150 MG daily in am- [...] and more. - pcp labs per patient- reviewed in chart has light box- educated on proper use - educated to use for SAD- will start using see PCP thyroid and hormones to r/o hormonal and menopausal 2. Generalized anxiety disorder - chronic worries and anxiety reported having chronic emotional numbness - Desvenlafaxine ER 50 mg daily- for depression and anxiety monitor for depression and anxiety monitor B/P Buspar 15 mg three times a day- increase Vistaril 25 mg twice a day as needed for anxiety anxiety and depression- monitor for shannen and hypomania 3. Recurrent hypersomnia -BIPAP see sleep specialist- schedule appt to discuss sleep and fatigue and r/t narcolepsy vs other dxn- seen 08/27/24 see sleep provider with sleep and fatigue issues- 08/27/24 sleep study for narcolespy SLEEP STUDY 08/27/24 r/o in near future for NARCOLEPSY sleep apnea and r/o narcolepsy sleep hygiene 4. Chronic post-traumatic stress disorder therapy 5. Weight gain Evidence suggests an active lifestyle and achieving and maintaining an ideal body weight (20-25 BMI) is optimal for health. Experts recommend at least 30 minutes of moderate to vigorous activity per day as tolerated, 5 days a week Eat healthy, including plenty of fresh fruits and vegetables daily. Strive to have 2/3 cup of your plate to be vegetables, fruits, whole grains and beans, while 1/3 or less should be an animal product. Choose fish and chicken and limit red meat and processed meats. Assess dietary pattern for daily intake of fruits, vegetables, and whole grains, as well as red and processed meats, alcohol, and processed foods or beverages with added fats and/or sugars. Assess timing of meals and snacking habits, portion size, frequency of eating out, and use of added fats and/or sugars to foods or beverages. All survivors should be encouraged to: Follow a predominantly nutrient-rich plant-based diet, including vegetables, fruit, and whole grains. Make informed choices about food to ensure variety and adequate nutrient intake. Limit consumption of red meat such as beef, pork, or nunez to no more than 18 ounces (cooked) per week. Eat processed meats such as ham, hot dogs, deli cuts, salguero, and sausage sparingly if at all. Limit consumption of fast foods and other processed foods that are high in fat, starches, or sugars such as chips, cookies, candy bars, desserts, processed baked goods, sugary cereals, and fried foods. Limit refined sugars to <6 tsp (25 g) for a 2000-calorie daily diet and <9 tsp (38 g) for a 3000-calorie daily diet. One medium cookie has about 2 tsp of sugar; a 12-oz can of a soft drink has about 10 tsp. Track calorie intake. Self-monitoring of food and beverage intake has been shown to be an effective strategy for weight management. Prolonged periods of fasting may impair adequate caloric and nutrient intake. Drink alcohol sparingly if at all. Lower levels of alcohol consumption are associated with a lower risk of cancer. For patients desiring further recommendations for dietary guidelines: Consider referral to a registered dietitian or digital cartographer. The USDA approximate food plate volumes (http_s://www.[employer] GBook[employer].gov) are: Vegetables and fruits should comprise half the volume of food on the plate Vegetables: 30% of plate; fruits 20% of plate Whole grains: 30% of plate Protein: 20% of plate Recommended sources of dietary components: Fat: plant sources such as olive or canola oil, avocados, seeds and nuts, and fatty fish Carbohydrates: fruits, vegetables, whole grains, and legumes Protein: poultry, fish, legumes, low-fat dairy foods, and nuts While the risks and benefits of soy foods for cancer survivors have been debated for many years, most studies to date show that moderate consumption of soy foods (up to 3 servings per day) are beneficial in promoting overall health and survival, with the strongest evidence existing for the prevention of lung cancer and reduction of breast cancer recurrence. Practice portion control. Make informed food choices through routine evaluation of food labels. Incorporate physical activity, particularly strength training, to assure optimal lean body mass (SPA-1). Track weight, diet, calories, and physical activity routines (eg, journaling, mobile phone apps). . Long-term drug therapy Discussion Notes KORINA Almanzar therapy continue 05/29/2025 Other intermediate (current) drug therapy (ICD-10 - Z79.899) Medication Refill: Care Instructions material was published, Medication Refill: Care Instructions material was published, Medication Refill: Care Instructions material was published, Medication Refill: Care Instructions material was published reviewed report in [facility] (05/22/2025) Seventeen 3 to 8 mm polyps in the transverse colon, ascending colon, and cecum, removed with cold snare. Four small (4-6 mm) polyps in the sigmoid and descending colon, resection not attempted due to prolonged procedure time and difficult anatomy. Erythematous mucosa in the sigmoid colon, biopsied. Significant looping of the colon. Diverticulosis in the sigmoid and descending colon. External and internal hemorrhoids. Recommendation: Repeat colonoscopy in 1 year for surveillance and polypectomy of remaining polyps. XR Hip Left 2 or 3 Views (04/24/2025) Mild degenerative changes with subchondral sclerosis, osteophyte formation, and maintained joint space. CT Abdomen Pelvis W Contrast (04/11/2025) Mild mucosal thickening of mid to distal transverse colon, descending colon, and sigmoid colon. Minimal to mild left pelvicaliectasis and ureterectasis; multiple nonobstructing left renal calculi. Circumferential mucosal thickening of the urinary bladder. Scattered colonic diverticula. Diffuse hepatic steatosis. Imaging SI Joint Injection Left (66035) (05/03/2025) The images from this study are not interpreted by Radiology. Please refer to the physician's procedure / OR operative note. XR Hip Left 2+ Vw (12/03/2024) Mild left hip osteoarthritis. Unchanged bone island in the left sacrum. MRI Hip Left WO Contrast (02/12/2025) Mild bilateral hip chondrosis. Mild bilateral greater trochanteric bursitis. 10 mm left S3 sclerotic lesion, slightly increased in size since 2017, most consistent with bone island. 18 mm unchanged T1 heterogeneously hypointense lesion in posterior right iliac bone. Multifocal Tarlov cysts in the sacrum. Mild lumbar spondylosis at L4-L5. Screening Mammogram Bilateral W Jacky (10/08/2024) No mammographic evidence to suggest malignancy. BI-RADS Category 1: Negative. Scattered areas of fibroglandular density. No suspicious masses, calcifications, or abnormal lymph nodes.. discussion with patient about course of treatment and patient instructions.- patient wants to keep all rx same at this time - 1. Schizoaffective disorder, bipolar type depression currently discss and educated on adding Lamotrigine 25 mg daily for 2 weeks then increase to 50 mg daily Lamotrigine lamotrigine has a serious rashes requiring hospitalization and discontinue treatment including Yoandy Everton syndrome rare case of toxic epidermal necrolysis and cache related deaths. Incidence with adjunct of epilepsy treatment 0.8% in 2 to 16 years old and 0.3% in adults, bipolar and other mood disorders incidence 0.8% this initial monotherapy and 0.13% as adjunctive treatment. Other risk factor may include concomitant use of valproate acid derivative or exceeding initial lamotrigine does or does as clinician recommendation; most life-threatening rash of occurring first 2 to 8 week of treatment with isolated cases after prolonged treatment; though benign may occur, discontinue treatment at first sign of rash unless clearly not a drug related; TC treatment may not prevent trash from becoming life-threatening or permanently disabling or disfiguring. Comment reaction include, nausea/vomiting, dizziness/vertigo , visual disturbances, somnolence, ataxia, pruritus/rash, pharyngitis, headache, rhinitis, diarrhea, fever, asthenia, insomnia, tremor, abdominal pain, cough, accidental injury, constipation, dysmenorrhea, incoordination, anxiety, seizures, irritability, anorexia, xerostomia, and photosensitivity. Serious reactions include: Rash, severe; Carroll Everton syndrome; toxic epidermal necrosis; injury edema, hypersensitivity reactions. Including fatal, multiple organ failure to safe fatal, rash with eosinophilia systemic symptoms, DIC, neutropenia, leukopenia, thrombocytopenia, pancytopenia, aplastic anemia, hemolytic anemia, i pancreatitis, hepatic failure, rhabdomyolysis, worsening of suicidal ideation, worsening of depression, cleft lip/palate [first trimester use] DO not Change Cosmetic, perfumes or soap for next 4 weeks. The patient was advice to take lamotrigine as prescribed the patient was instructed not to deviate from the prescription dosages. Stop lamotrigine is the first sign of rash. Patient was insisted to inform office if any of the serious side effect develops. Vraylar 1.5 mg daily- for depression and mood educated on rx AIMS- 1 05/07/25 - Pateint reported rt hand opens at times and drops items not noted today Wellbutrin XL 150 MG daily in am- [...] and more. - pcp labs per patient- reviewed in chart has light box- educated on proper use - educated to use for SAD- will start using see PCP thyroid and hormones to r/o hormonal and menopausal 2. Generalized anxiety disorder - chronic worries and anxiety reported having chronic emotional numbness - Desvenlafaxine ER 50 mg daily- for depression and anxiety monitor for depression and anxiety monitor B/P Buspar 15 mg three times a day- increase Vistaril 25 mg twice a day as needed for anxiety anxiety and depression- monitor for shannen and hypomania 3. Recurrent hypersomnia -BIPAP see sleep specialist- schedule appt to discuss sleep and fatigue and r/t narcolepsy vs other dxn- seen 08/27/24 see sleep provider with sleep and fatigue issues- 08/27/24 sleep study for narcolespy SLEEP STUDY 08/27/24 r/o in near future for NARCOLEPSY sleep apnea and r/o narcolepsy sleep hygiene 4. Chronic post-traumatic stress disorder therapy 5. Weight gain Evidence suggests an active lifestyle and achieving and maintaining an ideal body weight (20-25 BMI) is optimal for health. Experts recommend at least 30 minutes of moderate to vigorous activity per day as tolerated, 5 days a week Eat healthy, including plenty of fresh fruits and vegetables daily. Strive to have 2/3 cup of your plate to be vegetables, fruits, whole grains and beans, while 1/3 or less should be an animal product. Choose fish and chicken and limit red meat and processed meats. Assess dietary pattern for daily intake of fruits, vegetables, and whole grains, as well as red and processed meats, alcohol, and processed foods or beverages with added fats and/or sugars. Assess timing of meals and snacking habits, portion size, frequency of eating out, and use of added fats and/or sugars to foods or beverages. All survivors should be encouraged to: Follow a predominantly nutrient-rich plant-based diet, including vegetables, fruit, and whole grains. Make informed choices about food to ensure variety and adequate nutrient intake. Limit consumption of red meat such as beef, pork, or nunez to no more than 18 ounces (cooked) per week. Eat processed meats such as ham, hot dogs, deli cuts, salguero, and sausage sparingly if at all. Limit consumption of fast foods and other processed foods that are high in fat, starches, or sugars such as chips, cookies, candy bars, desserts, processed baked goods, sugary cereals, and fried foods. Limit refined sugars to <6 tsp (25 g) for a 2000-calorie daily diet and <9 tsp (38 g) for a 3000-calorie daily diet. One medium cookie has about 2 tsp of sugar; a 12-oz can of a soft drink has about 10 tsp. Track calorie intake. Self-monitoring of food and beverage intake has been shown to be an effective strategy for weight management. Prolonged periods of fasting may impair adequate caloric and nutrient intake. Drink alcohol sparingly if at all. Lower levels of alcohol consumption are associated with a lower risk of cancer. For patients desiring further recommendations for dietary guidelines: Consider referral to a registered dietitian or digital cartographer. The USDA approximate food plate volumes (http_s://www.myp late.gov) are: Vegetables and fruits should comprise half the volume of food on the plate Vegetables: 30% of plate; fruits 20% of plate Whole grains: 30% of plate Protein: 20% of plate Recommended sources of dietary components: Fat: plant sources such as olive or canola oil, avocados, seeds and nuts, and fatty fish Carbohydrates: fruits, vegetables, whole grains, and legumes Protein: poultry, fish, legumes, low-fat dairy foods, and nuts While the risks and benefits of soy foods for cancer survivors have been debated for many years, most studies to date show that moderate consumption of soy foods (up to 3 servings per day) are beneficial in promoting overall health and survival, with the strongest evidence existing for the prevention of lung cancer and reduction of breast cancer recurrence. Practice portion control. Make informed food choices through routine evaluation of food labels. Incorporate physical activity, particularly strength training, to assure optimal lean body mass (SPA-1). Track weight, diet, calories, and physical activity routines (eg, journaling, mobile phone apps). . Long-term drug therapy Discussion Notes KORINA Almanzar therapy continue 05/29/2025 Schizoaffective disorder, depressive type (ICD-10 - F25.1) Learning About Schizoaffective Disorder material was published, Learning About How to Get Help During a Mental Health Crisis material was published, Learning About Schizoaffective Disorder material was published, Learning About How to Get Help During a Mental Health Crisis material was published, Learning About Psychiatric Advance Directives material was published, Learning About Schizoaffective Disorder material was published, Learning About How to Get Help During a Mental Health Crisis material was published, Learning About Psychiatric Advance Directives material was published, Learning About Schizoaffective Disorder material was published, Learning About How to Get Help During a Mental Health Crisis material was published, Learning About Psychiatric Advance Directives material was published reviewed report in [facility] (05/22/2025) Seventeen 3 to 8 mm polyps in the transverse colon, ascending colon, and cecum, removed with cold snare. Four small (4-6 mm) polyps in the sigmoid and descending colon, resection not attempted due to prolonged procedure time and difficult anatomy. Erythematous mucosa in the sigmoid colon, biopsied. Significant looping of the colon. Diverticulosis in the sigmoid and descending colon. External and internal hemorrhoids. Recommendation: Repeat colonoscopy in 1 year for surveillance and polypectomy of remaining polyps. XR Hip Left 2 or 3 Views (04/24/2025) Mild degenerative changes with subchondral sclerosis, osteophyte formation, and maintained joint space. CT Abdomen Pelvis W Contrast (04/11/2025) Mild mucosal thickening of mid to distal transverse colon, descending colon, and sigmoid colon. Minimal to mild left pelvicaliectasis and ureterectasis; multiple nonobstructing left renal calculi. Circumferential mucosal thickening of the urinary bladder. Scattered colonic diverticula. Diffuse hepatic steatosis. Imaging SI Joint Injection Left ([id number]) (05/03/2025) The images from this study are not interpreted by Radiology. Please refer to the physician's procedure / OR operative note. XR Hip Left 2+ Vw (12/03/2024) Mild left hip osteoarthritis. Unchanged bone island in the left sacrum. MRI Hip Left WO Contrast (02/12/2025) Mild bilateral hip chondrosis. Mild bilateral greater trochanteric bursitis. 10 mm left S3 sclerotic lesion, slightly increased in size since 2017, most consistent with bone island. 18 mm unchanged T1 heterogeneously hypointense lesion in posterior right iliac bone. Multifocal Tarlov cysts in the sacrum. Mild lumbar spondylosis at L4-L5. Screening Mammogram Bilateral W Jacky (10/08/2024) No mammographic evidence to suggest malignancy. BI-RADS Category 1: Negative. Scattered areas of fibroglandular density. No suspicious masses, calcifications, or abnormal lymph nodes.. discussion with patient about course of treatment and patient instructions.- patient wants to keep all rx same at this time - 1. Schizoaffective disorder, bipolar type depression currently discss and educated on adding Lamotrigine 25 mg daily for 2 weeks then increase to 50 mg daily Lamotrigine lamotrigine has a serious rashes requiring hospitalization and discontinue treatment including Yoandy Everton syndrome rare case of toxic epidermal necrolysis and cache related deaths. Incidence with adjunct of epilepsy treatment 0.8% in 2 to 16 years old and 0.3% in adults, bipolar and other mood disorders incidence 0.8% this initial monotherapy and 0.13% as adjunctive treatment. Other risk factor may include concomitant use of valproate acid derivative or exceeding initial lamotrigine does or does as clinician recommendation; most life-threatening rash of occurring first 2 to 8 week of treatment with isolated cases after prolonged treatment; though benign may occur, discontinue treatment at first sign of rash unless clearly not a drug related; TC treatment may not prevent trash from becoming life-threatening or permanently disabling or disfiguring. Comment reaction include, nausea/vomiting, dizziness/vertigo , visual disturbances, somnolence, ataxia, pruritus/rash, pharyngitis, headache, rhinitis, diarrhea, fever, asthenia, insomnia, tremor, abdominal pain, cough, accidental injury, constipation, dysmenorrhea, incoordination, anxiety, seizures, irritability, anorexia, xerostomia, and photosensitivity. Serious reactions include: Rash, severe; Carroll Everton syndrome; toxic epidermal necrosis; injury edema, hypersensitivity reactions. Including fatal, multiple organ failure to safe fatal, rash with eosinophilia systemic symptoms, DIC, neutropenia, leukopenia, thrombocytopenia, pancytopenia, aplastic anemia, hemolytic anemia, i pancreatitis, hepatic failure, rhabdomyolysis, worsening of suicidal ideation, worsening of depression, cleft lip/palate [first trimester use] DO not Change Cosmetic, perfumes or soap for next 4 weeks. The patient was advice to take lamotrigine as prescribed the patient was instructed not to deviate from the prescription dosages. Stop lamotrigine is the first sign of rash. Patient was insisted to inform office if any of the serious side effect develops. Vraylar 1.5 mg daily- for depression and mood educated on rx AIMS- 1 05/07/25 - Pateint reported rt hand opens at times and drops items not noted today Wellbutrin XL 150 MG daily in am- [...] and more. - pcp labs per patient- reviewed in chart has light box- educated on proper use - educated to use for SAD- will start using see PCP thyroid and hormones to r/o hormonal and menopausal 2. Generalized anxiety disorder - chronic worries and anxiety reported having chronic emotional numbness - Desvenlafaxine ER 50 mg daily- for depression and anxiety monitor for depression and anxiety monitor B/P Buspar 15 mg three times a day- increase Vistaril 25 mg twice a day as needed for anxiety anxiety and depression- monitor for shannen and hypomania 3. Recurrent hypersomnia -BIPAP see sleep specialist- schedule appt to discuss sleep and fatigue and r/t narcolepsy vs other dxn- seen 08/27/24 see sleep provider with sleep and fatigue issues- 08/27/24 sleep study for narcolespy SLEEP STUDY 08/27/24 r/o in near future for NARCOLEPSY sleep apnea and r/o narcolepsy sleep hygiene 4. Chronic post-traumatic stress disorder therapy 5. Weight gain Evidence suggests an active lifestyle and achieving and maintaining an ideal body weight (20-25 BMI) is optimal for health. Experts recommend at least 30 minutes of moderate to vigorous activity per day as tolerated, 5 days a week Eat healthy, including plenty of fresh fruits and vegetables daily. Strive to have 2/3 cup of your plate to be vegetables, fruits, whole grains and beans, while 1/3 or less should be an animal product. Choose fish and chicken and limit red meat and processed meats. Assess dietary pattern for daily intake of fruits, vegetables, and whole grains, as well as red and processed meats, alcohol, and processed foods or beverages with added fats and/or sugars. Assess timing of meals and snacking habits, portion size, frequency of eating out, and use of added fats and/or sugars to foods or beverages. All survivors should be encouraged to: Follow a predominantly nutrient-rich plant-based diet, including vegetables, fruit, and whole grains. Make informed choices about food to ensure variety and adequate nutrient intake. Limit consumption of red meat such as beef, pork, or nunez to no more than 18 ounces (cooked) per week. Eat processed meats such as ham, hot dogs, deli cuts, salguero, and sausage sparingly if at all. Limit consumption of fast foods and other processed foods that are high in fat, starches, or sugars such as chips, cookies, candy bars, desserts, processed baked goods, sugary cereals, and fried foods. Limit refined sugars to <6 tsp (25 g) for a 2000-calorie daily diet and <9 tsp (38 g) for a 3000-calorie daily diet. One medium cookie has about 2 tsp of sugar; a 12-oz can of a soft drink has about 10 tsp. Track calorie intake. Self-monitoring of food and beverage intake has been shown to be an effective strategy for weight management. Prolonged periods of fasting may impair adequate caloric and nutrient intake. Drink alcohol sparingly if at all. Lower levels of alcohol consumption are associated with a lower risk of cancer. For patients desiring further recommendations for dietary guidelines: Consider referral to a registered dietitian or digital cartographer. The USDA approximate food plate volumes (http_s://www.[place].gov) are: Vegetables and fruits should comprise half the volume of food on the plate Vegetables: 30% of plate; fruits 20% of plate Whole grains: 30% of plate Protein: 20% of plate Recommended sources of dietary components: Fat: plant sources such as olive or canola oil, avocados, seeds and nuts, and fatty fish Carbohydrates: fruits, vegetables, whole grains, and legumes Protein: poultry, fish, legumes, low-fat dairy foods, and nuts While the risks and benefits of soy foods for cancer survivors have been debated for many years, most studies to date show that moderate consumption of soy foods (up to 3 servings per day) are beneficial in promoting overall health and survival, with the strongest evidence existing for the prevention of lung cancer and reduction of breast cancer recurrence. Practice portion control. Make informed food choices through routine evaluation of food labels. Incorporate physical activity, particularly strength training, to assure optimal lean body mass (SPA-1). Track weight, diet, calories, and physical activity routines (eg, journaling, mobile phone apps). . Long-term drug therapy Discussion Notes KORINA HERMAN Almanzar therapy continue 05/29/2025 Generalized anxiety disorder (ICD-10 - F41.1) Generalized Anxiety Disorder: Care Instructions material was published, Learning About Generalized Anxiety Disorder material was published, Generalized Anxiety Disorder: Care Instructions material was published, Learning About Generalized Anxiety Disorder material was published, Learning About Generalized Anxiety Disorder material was published, Generalized Anxiety Disorder: Care Instructions material was published, Learning About Anxiety Disorders material was published, Life After Combat: Coping with an Anxiety Disorder material was published, Managing a Health Condition and Your Anxiety About It material was published, Learning About Generalized Anxiety Disorder material was published, Generalized Anxiety Disorder: Care Instructions material was published, Learning About Anxiety Disorders material was published, Life After Combat: Coping with an Anxiety Disorder material was published reviewed report in [facility] (05/22/2025) Seventeen 3 to 8 mm polyps in the transverse colon, ascending colon, and cecum, removed with cold snare. Four small (4-6 mm) polyps in the sigmoid and descending colon, resection not attempted due to prolonged procedure time and difficult anatomy. Erythematous mucosa in the sigmoid colon, biopsied. Significant looping of the colon. Diverticulosis in the sigmoid and descending colon. External and internal hemorrhoids. Recommendation: Repeat colonoscopy in 1 year for surveillance and polypectomy of remaining polyps. XR Hip Left 2 or 3 Views (04/24/2025) Mild degenerative changes with subchondral sclerosis, osteophyte formation, and maintained joint space. CT Abdomen Pelvis W Contrast (04/11/2025) Mild mucosal thickening of mid to distal transverse colon, descending colon, and sigmoid colon. Minimal to mild left pelvicaliectasis and ureterectasis; multiple nonobstructing left renal calculi. Circumferential mucosal thickening of the urinary bladder. Scattered colonic diverticula. Diffuse hepatic steatosis. Imaging SI Joint Injection Left ([id number]) (05/03/2025) The images from this study are not interpreted by Radiology. Please refer to the physician's procedure / OR operative note. XR Hip Left 2+ Vw (12/03/2024) Mild left hip osteoarthritis. Unchanged bone island in the left sacrum. MRI Hip Left WO Contrast (02/12/2025) Mild bilateral hip chondrosis. Mild bilateral greater trochanteric bursitis. 10 mm left S3 sclerotic lesion, slightly increased in size since 2017, most consistent with bone island. 18 mm unchanged T1 heterogeneously hypointense lesion in posterior right iliac bone. Multifocal Tarlov cysts in the sacrum. Mild lumbar spondylosis at L4-L5. Screening Mammogram Bilateral W Jacky (10/08/2024) No mammographic evidence to suggest malignancy. BI-RADS Category 1: Negative. Scattered areas of fibroglandular density. No suspicious masses, calcifications, or abnormal lymph nodes.. discussion with patient about course of treatment and patient instructions.- patient wants to keep all rx same at this time - 1. Schizoaffective disorder, bipolar type depression currently discss and educated on adding Lamotrigine 25 mg daily for 2 weeks then increase to 50 mg daily Lamotrigine lamotrigine has a serious rashes requiring hospitalization and discontinue treatment including Yoanyd Everton syndrome rare case of toxic epidermal necrolysis and cache related deaths. Incidence with adjunct of epilepsy treatment 0.8% in 2 to 16 years old and 0.3% in adults, bipolar and other mood disorders incidence 0.8% this initial monotherapy and 0.13% as adjunctive treatment. Other risk factor may include concomitant use of valproate acid derivative or exceeding initial lamotrigine does or does as clinician recommendation; most life-threatening rash of occurring first 2 to 8 week of treatment with isolated cases after prolonged treatment; though benign may occur, discontinue treatment at first sign of rash unless clearly not a drug related; TC treatment may not prevent trash from becoming life-threatening or permanently disabling or disfiguring. Comment reaction include, nausea/vomiting, dizziness/vertigo , visual disturbances, somnolence, ataxia, pruritus/rash, pharyngitis, headache, rhinitis, diarrhea, fever, asthenia, insomnia, tremor, abdominal pain, cough, accidental injury, constipation, dysmenorrhea, incoordination, anxiety, seizures, irritability, anorexia, xerostomia, and photosensitivity. Serious reactions include: Rash, severe; Carroll Everton syndrome; toxic epidermal necrosis; injury edema, hypersensitivity reactions. Including fatal, multiple organ failure to safe fatal, rash with eosinophilia systemic symptoms, DIC, neutropenia, leukopenia, thrombocytopenia, pancytopenia, aplastic anemia, hemolytic anemia, i pancreatitis, hepatic failure, rhabdomyolysis, worsening of suicidal ideation, worsening of depression, cleft lip/palate [first trimester use] DO not Change Cosmetic, perfumes or soap for next 4 weeks. The patient was advice to take lamotrigine as prescribed the patient was instructed not to deviate from the prescription dosages. Stop lamotrigine is the first sign of rash. Patient was insisted to inform office if any of the serious side effect develops. Vraylar 1.5 mg daily- for depression and mood educated on rx AIMS- 1 05/07/25 - Pateint reported rt hand opens at times and drops items not noted today Wellbutrin XL 150 MG daily in am- [...] and more. - pcp labs per patient- reviewed in chart has light box- educated on proper use - educated to use for SAD- will start using see PCP thyroid and hormones to r/o hormonal and menopausal 2. Generalized anxiety disorder - chronic worries and anxiety reported having chronic emotional numbness - Desvenlafaxine ER 50 mg daily- for depression and anxiety monitor for depression and anxiety monitor B/P Buspar 15 mg three times a day- increase Vistaril 25 mg twice a day as needed for anxiety anxiety and depression- monitor for shannen and hypomania 3. Recurrent hypersomnia -BIPAP see sleep specialist- schedule appt to discuss sleep and fatigue and r/t narcolepsy vs other dxn- seen 08/27/24 see sleep provider with sleep and fatigue issues- 08/27/24 sleep study for narcolespy SLEEP STUDY 08/27/24 r/o in near future for NARCOLEPSY sleep apnea and r/o narcolepsy sleep hygiene 4. Chronic post-traumatic stress disorder therapy 5. Weight gain Evidence suggests an active lifestyle and achieving and maintaining an ideal body weight (20-25 BMI) is optimal for health. Experts recommend at least 30 minutes of moderate to vigorous activity per day as tolerated, 5 days a week Eat healthy, including plenty of fresh fruits and vegetables daily. Strive to have 2/3 cup of your plate to be vegetables, fruits, whole grains and beans, while 1/3 or less should be an animal product. Choose fish and chicken and limit red meat and processed meats. Assess dietary pattern for daily intake of fruits, vegetables, and whole grains, as well as red and processed meats, alcohol, and processed foods or beverages with added fats and/or sugars. Assess timing of meals and snacking habits, portion size, frequency of eating out, and use of added fats and/or sugars to foods or beverages. All survivors should be encouraged to: Follow a predominantly nutrient-rich plant-based diet, including vegetables, fruit, and whole grains. Make informed choices about food to ensure variety and adequate nutrient intake. Limit consumption of red meat such as beef, pork, or nunez to no more than 18 ounces (cooked) per week. Eat processed meats such as ham, hot dogs, deli cuts, salguero, and sausage sparingly if at all. Limit consumption of fast foods and other processed foods that are high in fat, starches, or sugars such as chips, cookies, candy bars, desserts, processed baked goods, sugary cereals, and fried foods. Limit refined sugars to <6 tsp (25 g) for a 2000-calorie daily diet and <9 tsp (38 g) for a 3000-calorie daily diet. One medium cookie has about 2 tsp of sugar; a 12-oz can of a soft drink has about 10 tsp. Track calorie intake. Self-monitoring of food and beverage intake has been shown to be an effective strategy for weight management. Prolonged periods of fasting may impair adequate caloric and nutrient intake. Drink alcohol sparingly if at all. Lower levels of alcohol consumption are associated with a lower risk of cancer. For patients desiring further recommendations for dietary guidelines: Consider referral to a registered dietitian or digital cartographer. The USDA approximate food plate volumes (http_s://www.[place]p late.gov) are: Vegetables and fruits should comprise half the volume of food on the plate Vegetables: 30% of plate; fruits 20% of plate Whole grains: 30% of plate Protein: 20% of plate Recommended sources of dietary components: Fat: plant sources such as olive or canola oil, avocados, seeds and nuts, and fatty fish Carbohydrates: fruits, vegetables, whole grains, and legumes Protein: poultry, fish, legumes, low-fat dairy foods, and nuts While the risks and benefits of soy foods for cancer survivors have been debated for many years, most studies to date show that moderate consumption of soy foods (up to 3 servings per day) are beneficial in promoting overall health and survival, with the strongest evidence existing for the prevention of lung cancer and reduction of breast cancer recurrence. Practice portion control. Make informed food choices through routine evaluation of food labels. Incorporate physical activity, particularly strength training, to assure optimal lean body mass (SPA-1). Track weight, diet, calories, and physical activity routines (eg, journaling, mobile phone apps). . Long-term drug therapy Discussion Notes KORINA Almanzar therapy continue 05/29/2025 Post-traumatic stress disorder, chronic (ICD-10 - F43.12) Post-Traumatic Stress Disorder (PTSD): Care Instructions material was published, Post-Traumatic Stress Disorder (PTSD): Care Instructions material was published, Post-Traumatic Stress Disorder (PTSD): Care Instructions material was published, Learning About PTSD After a Stay in the ICU material was published, Post-Traumatic Stress Disorder (PTSD): Care Instructions material was published reviewed report in [facility] (05/22/2025) Seventeen 3 to 8 mm polyps in the transverse colon, ascending colon, and cecum, removed with cold snare. Four small (4-6 mm) polyps in the sigmoid and descending colon, resection not attempted due to prolonged procedure time and difficult anatomy. Erythematous mucosa in the sigmoid colon, biopsied. Significant looping of the colon. Diverticulosis in the sigmoid and descending colon. External and internal hemorrhoids. Recommendation: Repeat colonoscopy in 1 year for surveillance and polypectomy of remaining polyps. XR Hip Left 2 or 3 Views (04/24/2025) Mild degenerative changes with subchondral sclerosis, osteophyte formation, and maintained joint space. CT Abdomen Pelvis W Contrast (04/11/2025) Mild mucosal thickening of mid to distal transverse colon, descending colon, and sigmoid colon. Minimal to mild left pelvicaliectasis and ureterectasis; multiple nonobstructing left renal calculi. Circumferential mucosal thickening of the urinary bladder. Scattered colonic diverticula. Diffuse hepatic steatosis. Imaging SI Joint Injection Left ([id number]) (05/03/2025) The images from this study are not interpreted by Radiology. Please refer to the physician's procedure / OR operative note. XR Hip Left 2+ Vw (12/03/2024) Mild left hip osteoarthritis. Unchanged bone island in the left sacrum. MRI Hip Left WO Contrast (02/12/2025) Mild bilateral hip chondrosis. Mild bilateral greater trochanteric bursitis. 10 mm left S3 sclerotic lesion, slightly increased in size since 2017, most consistent with bone island. 18 mm unchanged T1 heterogeneously hypointense lesion in posterior right iliac bone. Multifocal Tarlov cysts in the sacrum. Mild lumbar spondylosis at L4-L5. Screening Mammogram Bilateral W Jacky (10/08/2024) No mammographic evidence to suggest malignancy. BI-RADS Category 1: Negative. Scattered areas of fibroglandular density. No suspicious masses, calcifications, or abnormal lymph nodes.. discussion with patient about course of treatment and patient instructions.- patient wants to keep all rx same at this time - 1. Schizoaffective disorder, bipolar type depression currently discss and educated on adding Lamotrigine 25 mg daily for 2 weeks then increase to 50 mg daily Lamotrigine lamotrigine has a serious rashes requiring hospitalization and discontinue treatment including Yoandy Everton syndrome rare case of toxic epidermal necrolysis and cache related deaths. Incidence with adjunct of epilepsy treatment 0.8% in 2 to 16 years old and 0.3% in adults, bipolar and other mood disorders incidence 0.8% this initial monotherapy and 0.13% as adjunctive treatment. Other risk factor may include concomitant use of valproate acid derivative or exceeding initial lamotrigine does or does as clinician recommendation; most life-threatening rash of occurring first 2 to 8 week of treatment with isolated cases after prolonged treatment; though benign may occur, discontinue treatment at first sign of rash unless clearly not a drug related; TC treatment may not prevent trash from becoming life-threatening or permanently disabling or disfiguring. Comment reaction include, nausea/vomiting, dizziness/vertigo , visual disturbances, somnolence, ataxia, pruritus/rash, pharyngitis, headache, rhinitis, diarrhea, fever, asthenia, insomnia, tremor, abdominal pain, cough, accidental injury, constipation, dysmenorrhea, incoordination, anxiety, seizures, irritability, anorexia, xerostomia, and photosensitivity. Serious reactions include: Rash, severe; Carroll Everton syndrome; toxic epidermal necrosis; injury edema, hypersensitivity reactions. Including fatal, multiple organ failure to safe fatal, rash with eosinophilia systemic symptoms, DIC, neutropenia, leukopenia, thrombocytopenia, pancytopenia, aplastic anemia, hemolytic anemia, i pancreatitis, hepatic failure, rhabdomyolysis, worsening of suicidal ideation, worsening of depression, cleft lip/palate [first trimester use] DO not Change Cosmetic, perfumes or soap for next 4 weeks. The patient was advice to take lamotrigine as prescribed the patient was instructed not to deviate from the prescription dosages. Stop lamotrigine is the first sign of rash. Patient was insisted to inform office if any of the serious side effect develops. Vraylar 1.5 mg daily- for depression and mood educated on rx AIMS- 1 05/07/25 - Pateint reported rt hand opens at times and drops items not noted today Wellbutrin XL 150 MG daily in am- [...] and more. - pcp labs per patient- reviewed in chart has light box- educated on proper use - educated to use for SAD- will start using see PCP thyroid and hormones to r/o hormonal and menopausal 2. Generalized anxiety disorder - chronic worries and anxiety reported having chronic emotional numbness - Desvenlafaxine ER 50 mg daily- for depression and anxiety monitor for depression and anxiety monitor B/P Buspar 15 mg three times a day- increase Vistaril 25 mg twice a day as needed for anxiety anxiety and depression- monitor for shannen and hypomania 3. Recurrent hypersomnia -BIPAP see sleep specialist- schedule appt to discuss sleep and fatigue and r/t narcolepsy vs other dxn- seen 08/27/24 see sleep provider with sleep and fatigue issues- 08/27/24 sleep study for narcolespy SLEEP STUDY 08/27/24 r/o in near future for NARCOLEPSY sleep apnea and r/o narcolepsy sleep hygiene 4. Chronic post-traumatic stress disorder therapy 5. Weight gain Evidence suggests an active lifestyle and achieving and maintaining an ideal body weight (20-25 BMI) is optimal for health. Experts recommend at least 30 minutes of moderate to vigorous activity per day as tolerated, 5 days a week Eat healthy, including plenty of fresh fruits and vegetables daily. Strive to have 2/3 cup of your plate to be vegetables, fruits, whole grains and beans, while 1/3 or less should be an animal product. Choose fish and chicken and limit red meat and processed meats. Assess dietary pattern for daily intake of fruits, vegetables, and whole grains, as well as red and processed meats, alcohol, and processed foods or beverages with added fats and/or sugars. Assess timing of meals and snacking habits, portion size, frequency of eating out, and use of added fats and/or sugars to foods or beverages. All survivors should be encouraged to: Follow a predominantly nutrient-rich plant-based diet, including vegetables, fruit, and whole grains. Make informed choices about food to ensure variety and adequate nutrient intake. Limit consumption of red meat such as beef, pork, or nunez to no more than 18 ounces (cooked) per week. Eat processed meats such as ham, hot dogs, deli cuts, salguero, and sausage sparingly if at all. Limit consumption of fast foods and other processed foods that are high in fat, starches, or sugars such as chips, cookies, candy bars, desserts, processed baked goods, sugary cereals, and fried foods. Limit refined sugars to <6 tsp (25 g) for a 2000-calorie daily diet and <9 tsp (38 g) for a 3000-calorie daily diet. One medium cookie has about 2 tsp of sugar; a 12-oz can of a soft drink has about 10 tsp. Track calorie intake. Self-monitoring of food and beverage intake has been shown to be an effective strategy for weight management. Prolonged periods of fasting may impair adequate caloric and nutrient intake. Drink alcohol sparingly if at all. Lower levels of alcohol consumption are associated with a lower risk of cancer. For patients desiring further recommendations for dietary guidelines: Consider referral to a registered dietitian or digital cartographer. The USDA approximate food plate volumes (http_s://www.myp late.gov) are: Vegetables and fruits should comprise half the volume of food on the plate Vegetables: 30% of plate; fruits 20% of plate Whole grains: 30% of plate Protein: 20% of plate Recommended sources of dietary components: Fat: plant sources such as olive or canola oil, avocados, seeds and nuts, and fatty fish Carbohydrates: fruits, vegetables, whole grains, and legumes Protein: poultry, fish, legumes, low-fat dairy foods, and nuts While the risks and benefits of soy foods for cancer survivors have been debated for many years, most studies to date show that moderate consumption of soy foods (up to 3 servings per day) are beneficial in promoting overall health and survival, with the strongest evidence existing for the prevention of lung cancer and reduction of breast cancer recurrence. Practice portion control. Make informed food choices through routine evaluation of food labels. Incorporate physical activity, particularly strength training, to assure optimal lean body mass (SPA-1). Track weight, diet, calories, and physical activity routines (eg, journaling, mobile phone apps). . Long-term drug therapy Discussion Notes [facility] therapy continue 05/29/2025 Weight gain (ICD-10 - R63.5) Abnormal Weight Gain: Care Instructions material was published, Abnormal Weight Gain: Care Instructions material was published reviewed report in [facility] (05/22/2025) Seventeen 3 to 8 mm polyps in the transverse colon, ascending colon, and cecum, removed with cold snare. Four small (4-6 mm) polyps in the sigmoid and descending colon, resection not attempted due to prolonged procedure time and difficult anatomy. Erythematous mucosa in the sigmoid colon, biopsied. Significant looping of the colon. Diverticulosis in the sigmoid and descending colon. External and internal hemorrhoids. Recommendation: Repeat colonoscopy in 1 year for surveillance and polypectomy of remaining polyps. XR Hip Left 2 or 3 Views (04/24/2025) Mild degenerative changes with subchondral sclerosis, osteophyte formation, and maintained joint space. CT Abdomen Pelvis W Contrast (04/11/2025) Mild mucosal thickening of mid to distal transverse colon, descending colon, and sigmoid colon. Minimal to mild left pelvicaliectasis and ureterectasis; multiple nonobstructing left renal calculi. Circumferential mucosal thickening of the urinary bladder. Scattered colonic diverticula. Diffuse hepatic steatosis. Imaging SI Joint Injection Left (05559) (05/03/2025) The images from this study are not interpreted by Radiology. Please refer to the physician's procedure / OR operative note. XR Hip Left 2+ Vw (12/03/2024) Mild left hip osteoarthritis. Unchanged bone island in the left sacrum. MRI Hip Left WO Contrast (02/12/2025) Mild bilateral hip chondrosis. Mild bilateral greater trochanteric bursitis. 10 mm left S3 sclerotic lesion, slightly increased in size since 2017, most consistent with bone island. 18 mm unchanged T1 heterogeneously hypointense lesion in posterior right iliac bone. Multifocal Tarlov cysts in the sacrum. Mild lumbar spondylosis at L4-L5. Screening Mammogram Bilateral W Jacky (10/08/2024) No mammographic evidence to suggest malignancy. BI-RADS Category 1: Negative. Scattered areas of fibroglandular density. No suspicious masses, calcifications, or abnormal lymph nodes.. discussion with patient about course of treatment and patient instructions.- patient wants to keep all rx same at this time - 1. Schizoaffective disorder, bipolar type depression currently discss and educated on adding Lamotrigine 25 mg daily for 2 weeks then increase to 50 mg daily Lamotrigine lamotrigine has a serious rashes requiring hospitalization and discontinue treatment including Yoandy Everton syndrome rare case of toxic epidermal necrolysis and cache related deaths. Incidence with adjunct of epilepsy treatment 0.8% in 2 to 16 years old and 0.3% in adults, bipolar and other mood disorders incidence 0.8% this initial monotherapy and 0.13% as adjunctive treatment. Other risk factor may include concomitant use of valproate acid derivative or exceeding initial lamotrigine does or does as clinician recommendation; most life-threatening rash of occurring first 2 to 8 week of treatment with isolated cases after prolonged treatment; though benign may occur, discontinue treatment at first sign of rash unless clearly not a drug related; TC treatment may not prevent trash from becoming life-threatening or permanently disabling or disfiguring. Comment reaction include, nausea/vomiting, dizziness/vertigo , visual disturbances, somnolence, ataxia, pruritus/rash, pharyngitis, headache, rhinitis, diarrhea, fever, asthenia, insomnia, tremor, abdominal pain, cough, accidental injury, constipation, dysmenorrhea, incoordination, anxiety, seizures, irritability, anorexia, xerostomia, and photosensitivity. Serious reactions include: Rash, severe; Carroll Everton syndrome; toxic epidermal necrosis; injury edema, hypersensitivity reactions. Including fatal, multiple organ failure to safe fatal, rash with eosinophilia systemic symptoms, DIC, neutropenia, leukopenia, thrombocytopenia, pancytopenia, aplastic anemia, hemolytic anemia, i pancreatitis, hepatic failure, rhabdomyolysis, worsening of suicidal ideation, worsening of depression, cleft lip/palate [first trimester use] DO not Change Cosmetic, perfumes or soap for next 4 weeks. The patient was advice to take lamotrigine as prescribed the patient was instructed not to deviate from the prescription dosages. Stop lamotrigine is the first sign of rash. Patient was insisted to inform office if any of the serious side effect develops. Vraylar 1.5 mg daily- for depression and mood educated on rx AIMS- 1 05/07/25 - Pateint reported rt hand opens at times and drops items not noted today Wellbutrin XL 150 MG daily in am- [...] and more. - pcp labs per patient- reviewed in chart has light box- educated on proper use - educated to use for SAD- will start using see PCP thyroid and hormones to r/o hormonal and menopausal 2. Generalized anxiety disorder - chronic worries and anxiety reported having chronic emotional numbness - Desvenlafaxine ER 50 mg daily- for depression and anxiety monitor for depression and anxiety monitor B/P Buspar 15 mg three times a day- increase Vistaril 25 mg twice a day as needed for anxiety anxiety and depression- monitor for shannen and hypomania 3. Recurrent hypersomnia -BIPAP see sleep specialist- schedule appt to discuss sleep and fatigue and r/t narcolepsy vs other dxn- seen 08/27/24 see sleep provider with sleep and fatigue issues- 08/27/24 sleep study for narcolespy SLEEP STUDY 08/27/24 r/o in near future for NARCOLEPSY sleep apnea and r/o narcolepsy sleep hygiene 4. Chronic post-traumatic stress disorder therapy 5. Weight gain Evidence suggests an active lifestyle and achieving and maintaining an ideal body weight (20-25 BMI) is optimal for health. Experts recommend at least 30 minutes of moderate to vigorous activity per day as tolerated, 5 days a week Eat healthy, including plenty of fresh fruits and vegetables daily. Strive to have 2/3 cup of your plate to be vegetables, fruits, whole grains and beans, while 1/3 or less should be an animal product. Choose fish and chicken and limit red meat and processed meats. Assess dietary pattern for daily intake of fruits, vegetables, and whole grains, as well as red and processed meats, alcohol, and processed foods or beverages with added fats and/or sugars. Assess timing of meals and snacking habits, portion size, frequency of eating out, and use of added fats and/or sugars to foods or beverages. All survivors should be encouraged to: Follow a predominantly nutrient-rich plant-based diet, including vegetables, fruit, and whole grains. Make informed choices about food to ensure variety and adequate nutrient intake. Limit consumption of red meat such as beef, pork, or nunez to no more than 18 ounces (cooked) per week. Eat processed meats such as ham, hot dogs, deli cuts, salguero, and sausage sparingly if at all. Limit consumption of fast foods and other processed foods that are high in fat, starches, or sugars such as chips, cookies, candy bars, desserts, processed baked goods, sugary cereals, and fried foods. Limit refined sugars to <6 tsp (25 g) for a 2000-calorie daily diet and <9 tsp (38 g) for a 3000-calorie daily diet. One medium cookie has about 2 tsp of sugar; a 12-oz can of a soft drink has about 10 tsp. Track calorie intake. Self-monitoring of food and beverage intake has been shown to be an effective strategy for weight management. Prolonged periods of fasting may impair adequate caloric and nutrient intake. Drink alcohol sparingly if at all. Lower levels of alcohol consumption are associated with a lower risk of cancer. For patients desiring further recommendations for dietary guidelines: Consider referral to a registered dietitian or digital cartographer. The USDA approximate food plate volumes (http_s://www.[employer].gov) are: Vegetables and fruits should comprise half the volume of food on the plate Vegetables: 30% of plate; fruits 20% of plate Whole grains: 30% of plate Protein: 20% of plate Recommended sources of dietary components: Fat: plant sources such as olive or canola oil, avocados, seeds and nuts, and fatty fish Carbohydrates: fruits, vegetables, whole grains, and legumes Protein: poultry, fish, legumes, low-fat dairy foods, and nuts While the risks and benefits of soy foods for cancer survivors have been debated for many years, most studies to date show that moderate consumption of soy foods (up to 3 servings per day) are beneficial in promoting overall health and survival, with the strongest evidence existing for the prevention of lung cancer and reduction of breast cancer recurrence. Practice portion control. Make informed food choices through routine evaluation of food labels. Incorporate physical activity, particularly strength training, to assure optimal lean body mass (SPA-1). Track weight, diet, calories, and physical activity routines (eg, journaling, mobile phone apps). . Long-term drug therapy Discussion Notes [facility] therapy continue 05/29/2025 Other Cariprazine material was published, Bupropion material was published, Lamotrigine material was published, Desvenlafaxine material was published, Hydroxyzine material was published, Buspirone material was published reviewed report in [facility] (05/22/2025) Seventeen 3 to 8 mm polyps in the transverse colon, ascending colon, and cecum, removed with cold snare. Four small (4-6 mm) polyps in the sigmoid and descending colon, resection not attempted due to prolonged procedure time and difficult anatomy. Erythematous mucosa in the sigmoid colon, biopsied. Significant looping of the colon. Diverticulosis in the sigmoid and descending colon. External and internal hemorrhoids. Recommendation: Repeat colonoscopy in 1 year for surveillance and polypectomy of remaining polyps. XR Hip Left 2 or 3 Views (04/24/2025) Mild degenerative changes with subchondral sclerosis, osteophyte formation, and maintained joint space. CT Abdomen Pelvis W Contrast (04/11/2025) Mild mucosal thickening of mid to distal transverse colon, descending colon, and sigmoid colon. Minimal to mild left pelvicaliectasis and ureterectasis; multiple nonobstructing left renal calculi. Circumferential mucosal thickening of the urinary bladder. Scattered colonic diverticula. Diffuse hepatic steatosis. Imaging SI Joint Injection Left (05058) (05/03/2025) The images from this study are not interpreted by Radiology. Please refer to the physician's procedure / OR operative note. XR Hip Left 2+ Vw (12/03/2024) Mild left hip osteoarthritis. Unchanged bone island in the left sacrum. MRI Hip Left WO Contrast (02/12/2025) Mild bilateral hip chondrosis. Mild bilateral greater trochanteric bursitis. 10 mm left S3 sclerotic lesion, slightly increased in size since 2017, most consistent with bone island. 18 mm unchanged T1 heterogeneously hypointense lesion in posterior right iliac bone. Multifocal Tarlov cysts in the sacrum. Mild lumbar spondylosis at L4-L5. Screening Mammogram Bilateral W Jacky (10/08/2024) No mammographic evidence to suggest malignancy. BI-RADS Category 1: Negative. Scattered areas of fibroglandular density. No suspicious masses, calcifications, or abnormal lymph nodes.. discussion with patient about course of treatment and patient instructions.- patient wants to keep all rx same at this time - 1. Schizoaffective disorder, bipolar type depression currently discss and educated on adding Lamotrigine 25 mg daily for 2 weeks then increase to 50 mg daily Lamotrigine lamotrigine has a serious rashes requiring hospitalization and discontinue treatment including Yoandy Everton syndrome rare case of toxic epidermal necrolysis and cache related deaths. Incidence with adjunct of epilepsy treatment 0.8% in 2 to 16 years old and 0.3% in adults, bipolar and other mood disorders incidence 0.8% this initial monotherapy and 0.13% as adjunctive treatment. Other risk factor may include concomitant use of valproate acid derivative or exceeding initial lamotrigine does or does as clinician recommendation; most life-threatening rash of occurring first 2 to 8 week of treatment with isolated cases after prolonged treatment; though benign may occur, discontinue treatment at first sign of rash unless clearly not a drug related; TC treatment may not prevent trash from becoming life-threatening or permanently disabling or disfiguring. Comment reaction include, nausea/vomiting, dizziness/vertigo , visual disturbances, somnolence, ataxia, pruritus/rash, pharyngitis, headache, rhinitis, diarrhea, fever, asthenia, insomnia, tremor, abdominal pain, cough, accidental injury, constipation, dysmenorrhea, incoordination, anxiety, seizures, irritability, anorexia, xerostomia, and photosensitivity. Serious reactions include: Rash, severe; Carroll Everton syndrome; toxic epidermal necrosis; injury edema, hypersensitivity reactions. Including fatal, multiple organ failure to safe fatal, rash with eosinophilia systemic symptoms, DIC, neutropenia, leukopenia, thrombocytopenia, pancytopenia, aplastic anemia, hemolytic anemia, i pancreatitis, hepatic failure, rhabdomyolysis, worsening of suicidal ideation, worsening of depression, cleft lip/palate [first trimester use] DO not Change Cosmetic, perfumes or soap for next 4 weeks. The patient was advice to take lamotrigine as prescribed the patient was instructed not to deviate from the prescription dosages. Stop lamotrigine is the first sign of rash. Patient was insisted to inform office if any of the serious side effect develops. Vraylar 1.5 mg daily- for depression and mood educated on rx AIMS- 1 05/07/25 - Pateint reported rt hand opens at times and drops items not noted today Wellbutrin XL 150 MG daily in am- [...] and more. - pcp labs per patient- reviewed in chart has light box- educated on proper use - educated to use for SAD- will start using see PCP thyroid and hormones to r/o hormonal and menopausal 2. Generalized anxiety disorder - chronic worries and anxiety reported having chronic emotional numbness - Desvenlafaxine ER 50 mg daily- for depression and anxiety monitor for depression and anxiety monitor B/P Buspar 15 mg three times a day- increase Vistaril 25 mg twice a day as needed for anxiety anxiety and depression- monitor for shannen and hypomania 3. Recurrent hypersomnia -BIPAP see sleep specialist- schedule appt to discuss sleep and fatigue and r/t narcolepsy vs other dxn- seen 08/27/24 see sleep provider with sleep and fatigue issues- 08/27/24 sleep study for narcolespy SLEEP STUDY 08/27/24 r/o in near future for NARCOLEPSY sleep apnea and r/o narcolepsy sleep hygiene 4. Chronic post-traumatic stress disorder therapy 5. Weight gain Evidence suggests an active lifestyle and achieving and maintaining an ideal body weight (20-25 BMI) is optimal for health. Experts recommend at least 30 minutes of moderate to vigorous activity per day as tolerated, 5 days a week Eat healthy, including plenty of fresh fruits and vegetables daily. Strive to have 2/3 cup of your plate to be vegetables, fruits, whole grains and beans, while 1/3 or less should be an animal product. Choose fish and chicken and limit red meat and processed meats. Assess dietary pattern for daily intake of fruits, vegetables, and whole grains, as well as red and processed meats, alcohol, and processed foods or beverages with added fats and/or sugars. Assess timing of meals and snacking habits, portion size, frequency of eating out, and use of added fats and/or sugars to foods or beverages. All survivors should be encouraged to: Follow a predominantly nutrient-rich plant-based diet, including vegetables, fruit, and whole grains. Make informed choices about food to ensure variety and adequate nutrient intake. Limit consumption of red meat such as beef, pork, or nunez to no more than 18 ounces (cooked) per week. Eat processed meats such as ham, hot dogs, deli cuts, salguero, and sausage sparingly if at all. Limit consumption of fast foods and other processed foods that are high in fat, starches, or sugars such as chips, cookies, candy bars, desserts, processed baked goods, sugary cereals, and fried foods. Limit refined sugars to <6 tsp (25 g) for a 2000-calorie daily diet and <9 tsp (38 g) for a 3000-calorie daily diet. One medium cookie has about 2 tsp of sugar; a 12-oz can of a soft drink has about 10 tsp. Track calorie intake. Self-monitoring of food and beverage intake has been shown to be an effective strategy for weight management. Prolonged periods of fasting may impair adequate caloric and nutrient intake. Drink alcohol sparingly if at all. Lower levels of alcohol consumption are associated with a lower risk of cancer. For patients desiring further recommendations for dietary guidelines: Consider referral to a registered dietitian or digital cartographer. The USDA approximate food plate volumes (http_s://www.myp late.gov) are: Vegetables and fruits should comprise half the volume of food on the plate Vegetables: 30% of plate; fruits 20% of plate Whole grains: 30% of plate Protein: 20% of plate Recommended sources of dietary components: Fat: plant sources such as olive or canola oil, avocados, seeds and nuts, and fatty fish Carbohydrates: fruits, vegetables, whole grains, and legumes Protein: poultry, fish, legumes, low-fat dairy foods, and nuts While the risks and benefits of soy foods for cancer survivors have been debated for many years, most studies to date show that moderate consumption of soy foods (up to 3 servings per day) are beneficial in promoting overall health and survival, with the strongest evidence existing for the prevention of lung cancer and reduction of breast cancer recurrence. Practice portion control. Make informed food choices through routine evaluation of food labels. Incorporate physical activity, particularly strength training, to assure optimal lean body mass (SPA-1). Track weight, diet, calories, and physical activity routines (eg, journaling, mobile phone apps). . Long-term drug therapy Discussion Notes [facility] therapy continue Plan Of Treatment Medication Medication Name Sig Start Date Stop Date Notes lamoTRIgine 25 MG Tablet 1 tablet for 2 weeks then increase 2 tablets daily Orally daily; Duration: 30 days 05/29/2025 busPIRone HCl 15 MG Tablet 1 tablet Oral three times a day; Duration: 90 days 05/29/2025 08/27/2025 buPROPion HCl ER (XL) 150 MG Tablet Extended Release 24 Hour 1 tablet Oral; Duration: 90 days 05/29/2025 hydrOXYzine HCl 25 MG Tablet 1 tablet as needed Orally twice a day; Duration: 90 days 05/29/2025 pa approved Desvenlafaxine Succinate ER 50 MG Tablet Extended Release 24 Hour 1 tablet Oral Once a day; Duration: 90 days 05/29/2025 d/c 25 mg dose Vraylar 1.5 mg Capsule take one capsule daily Oral bedtime; Duration: 90 days 05/29/2025 Treatment Notes Assessment Notes Sleep apnea, unspecified Learning About Sleep Apnea material was published, Sleep Apnea: Care Instructions material was published, Heart Failure and Sleep Apnea: Care Instructions material was published, Learning About Sleep Apnea material was published, Sleep Apnea: Care Instructions material was published, Learning About Sleep Apnea material was published, Sleep Apnea: Care Instructions material was published, Learning About Bilevel Positive Airway Pressure (BPAP) material was published, Sleep Apnea: Care Instructions material was published, Learning About Sleep Apnea material was published, Learning About CPAP for Sleep Apnea material was published Other intermediate (current) drug therapy M edication Refill: Care Instructions material was published, Medication Refill: Care Instructions material was published, Medication Refill: Care Instructions material was published, Medication Refill: Care Instructions material was published Schizoaffective disorder, depressive typ e Learning About Schizoaffective Disorder material was published, Learning About How to Get Help During a Mental Health Crisis material was published, Learning About Schizoaffective Disorder material was published, Learning About How to Get Help During a Mental Health Crisis material was published, Learning About Psychiatric Advance Directives material was published, Learning About Schizoaffective Disorder material was published, Learning About How to Get Help During a Mental Health Crisis material was published, Learning About Psychiatric Advance Directives material was published, Learning About Schizoaffective Disorder material was published, Learning About How to Get Help During a Mental Health Crisis material was published, Learning About Psychiatric Advance Directives material was published Generalized anxiety disorder Generalized Anxiety Disorder: Care Instructions material was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 food to ensure variety and adequate nutrient intake. Limit consumption of red meat such as beef, pork, or nunez to no more than 18 ounces (cooked) per week. Eat processed meats such as ham, hot dogs, deli cuts, salguero, and sausage sparingly if at all. L imit consumption of fast foods and other processed foods that are high in fat, starches, or sugars such as chips, cookies, candy bars, desserts, processed baked goods, sugary cereals, and fried foods. Limit refined sugars to <6 tsp (25 g) for a 2000-calorie daily diet and <9 tsp (38 g) for a 3000-calorie daily diet. One medium cookie has about 2 tsp of sugar; a 12-oz can of a soft drink has about 10 tsp. Track calorie intake. Self-monitoring of food and beverage intake has been shown to be an effective strategy for weight management. Prolonged periods of fasting may impair adequate caloric and nutrient intake. Drink alcohol sparingly if at all. Lower levels of alcohol consumption are associated with a lower risk of cancer. For patients desiring further recommendations for dietary guidelines: Consider referral to a registered dietitian or digital cartographer. The USDA approximate food plate volumes (http_s://www.myplate.gov) are: Vegetables and fruits should comprise half the volume of food on the plate Vegetables: 30% of plate; fruits 20% of plate W hole grains: 30% of plate Protein: 20% of plate Recommended sources of dietary components: Fat: plant sources such as olive or canola oil, avocados, seeds and nuts, and fatty fish Carbohydrates: fruits, vegetables, whole grains, and legumes Protein: poultry, fish, legumes, low-fat dairy foods, and nuts While the risks and benefits of soy foods for cancer survivors have been debated for many years, most studies to date show that moderate consumption of soy foods (up to 3 servings per day) are beneficial in promoting overall health and survival, with the strongest evidence existing for the prevention of lung cancer and reduction of breast cancer recurrence. Practice portion control. Make informed food choices through routine evaluation of food labels. Incorporate physical activity, particularly strength training, to assure optimal lean body mass (SPA-1). Track weight, diet, calories, and physical activity routines (eg, journaling, mobile phone apps). . Long-term drug therapy Discussion Notes KORINA Almanzar therapy continue Plan: * Treatment: 2. S leep apnea, unspecified Notes: Learning About Sleep Apnea material was published, Sleep Apnea: Care Instructions material was published, Heart Failure and Sleep Apnea: Care Instructions material was published, Learning About Sleep Apnea material was published, Sleep Apnea: Care Instructions material was published, Learning About Sleep Apnea material was published, Sleep Apnea: Care Instructions material was published, Learning About Bilevel Positive Airway Pressure (BPAP) material was published, Sleep Apnea: Care Instructions material was published, Learning About Sleep Apnea material was published, Learning About CPAP for Sleep Apnea material was published 3. O ther intermediate (current) drug therapy Notes: Medication Refill: Care Instructions material was published, Medication Refill: Care Instructions material was published, Medication Refill: Care Instructions material was published, Medication Refill: Care Instructions material was published 4. G eneralized anxiety disorder Refill Desvenlafaxine Succinate ER Tablet Extended Release 24 Hour, 50 MG, 1 tablet Oral Once a day, 90 days, 90, Refills 0, Notes to Pharmacist: d/c 25 mg dose; I ncrease hydrOXYzine HCl Tablet, 25 MG, 1 tablet as needed, Orally, twice a day, 90 days, 180, Refills 0, Notes to Pharmacist: fabian approved; C ontinue busPIRone HCl Tablet, 15 MG, 1 tablet, Oral, three times a day, 90 days, 270, Refills 0. Notes: Generalized Anxiety Disorder: Care Instructions material was published, Learning About Generalized Anxiety Disorder material was published, Generalized Anxiety Disorder: Care Instructions material was published, Learning About Generalized Anxiety Disorder material was published, Learning About Generalized Anxiety Disorder material was published, Generalized Anxiety Disorder: Care Instructions material was published, Learning About Anxiety Disorders material was published, Life After Combat: Coping with an Anxiety Disorder material was published, Managing a Health Condition and Your Anxiety About It material was published, Learning About Generalized Anxiety Disorder material was published, Generalized Anxiety Disorder: Care Instructions material was published, Learning About Anxiety Disorders material was published, Life After Combat: Coping with an Anxiety Disorder material was published 5. P ost-traumatic stress disorder, chronic Notes: Post-Traumatic Stress Disorder (PTSD): Care Instructions material was published, Post-Traumatic Stress Disorder (PTSD): Care Instructions material was published, Post-Traumatic Stress Disorder (PTSD): Care Instructions material was published, Learning About PTSD After a Stay in the ICU material was published, Post-Traumatic Stress Disorder (PTSD): Care Instructions material was published? 6. W eight gain Notes: Abnormal Weight Gain: Care Instructions material was published, Abnormal Weight Gain: Care Instructions material was published 7. O thers Notes: Cariprazine material was published, Bupropion material was published, Lamotrigine material was published, Desvenlafaxine material was published, Hydroxyzine material was published, Buspirone material was published * Procedure Codes: 1 036F TOBACCO NON-USER, 75633 BEHAV ASSMT W/SCORE & DOCD/STAND INSTRUMENT, G2211 VISIT COMPLEXITY INHERENT TO ONGOING CARE RELATED TO A PATIENT'S SINGLE, SERIOUS CONDITION OR A COMPLEX CONDITION * Preventive Medicine: Screenings: D epression screening Have you had a recent depression screening? Y es * Follow Up: 4 Weeks (Reason: medication follow up Lamotrigine) Billing Information: * Visit Code: 41675 OFFICE OUTPATIENT VISIT 25 MINUTES DETAILED HISTORY AND EXAM/MODERATE MEDICAL DECISION MAKING. * Procedure Codes: 1036F TOBACCO NON-USER. 14516 BEHAV ASSMT W/SCORE & DOCD/STAND INSTRUMENT. G2211 VISIT COMPLEXITY INHERENT TO ONGOING CARE RELATED TO A PATIENT'S SINGLE, SERIOUS CONDITION OR A COMPLEX CONDITION. * Sign off status: Completed true * Provider: POLLO GAINES Date: 05/29/2025 Generated for Camilo travis/Jocy/Janneth on: 05/30/2025 11:03 AM CDT
--- NOTE | ~2025-05-30 | CT_ITS ---
CT ABDOMEN AND PELVIS WITHOUT CONTRAST Clinical History: Urolithiasis Comparison: None Technique: Unenhanced axial images lung bases to symphysis pubis Coronal, sagittal reformats CT images acquired with automatic exposure control for dose reduction DLP: 1461 mGy-cm Findings: Without intravenous contrast, sensitivity for detecting visceral parenchymal abnormalities decreased. Lung bases: Scarring. Visualized heart and pericardium: Unremarkable. Liver: Enlarged. Gallbladder: Removed. Spleen: Unremarkable. Pancreas: Unremarkable. Adrenal glands: Unremarkable. Kidneys: Right kidney- No hydronephrosis. No renal stones. Left kidney- No hydronephrosis. A few small stones. Distal esophagus/stomach: Unremarkable. Small bowel loops: Normal caliber and wall thickness. Colon: Normal caliber and wall thickness. Appendix not seen. Nodes: No enlarged nodes. Peritoneum: No ascites. No free intraperitoneal air. Urinary bladder: Unremarkable. Uterus colon removed. Adnexa: No masses. Bones: No acute bony abnormality. Soft tissues: Unremarkable. Unopacified abdominal aorta: No aneurysmal dilatation. Atherosclerotic disease. IMPRESSION: 1. Several small renal stones left kidney. No hydronephrosis. 2. No other acute abnormality. Reviewed, dictated and finalized at location R.
--- OUTSIDE RECORDS SUMMARY | 2025-05-30 11:03 | XMS_ITS | Clinical Summary ---
Author Organization [facility] Address [address] [place] [address] Care Team Providers Care Cone Cleaner Name Role Phone Tila Bernal JOSE LUIS-INSURANCE ASSOCIATE Primary Care Provider [phone] Source Comments [facility],non-owned Affiliates and Associated Physician Practices is amultiple site organization consisting of ambulatory clinics and hospital sitesin [place], [place], [place] and [place]. This disclosure is being madepursuant to the Care Everywhere program and may not contain all information available regarding this patient. Last updated 18.[facility] Allergies No known active allergies Medications * Be aware that medications may not be up to date on this document. Alwaysverify current medications with the patient. Ipratropium-Alb uterol (COMBIVENT RESPIMAT IN) Inhale 2 Puffs by mouth once daily 2.5mcg/2.5mcg per actuation Active atorvastatin (LIPITOR) 80 MG tablet Take 80 mg by mouth once daily 1 Active buPROPion XL 24hr (WELLBUTRIN-XL) 300 MG tablet Take 300 mg by mouth every morning 1 Active busPIRone (BUSPAR) 15 MG tablet Take 15 mg by mouth 2 times daily 1 Active VRAYLAR 4.5 MG capsule Take 4.5 mg by mouth at bedtime 1 Active desvenlafaxine succinate ER 24hr (PRISTIQ) 100 MG tablet TAKE 1 TABLET BY MOUTH ONCE DAILY WITH 50MG TO EQUAL 150MG 1 Active fluticasone propionate (FLONASE) 50 MCG/ACT nasal spray USE 2 SPRAYS IN EACH NOSTRIL ONCE DAILY 1 Active mirtazapine (REMERON) 15 MG tablet Take 7.5 mg by mouth at bedtime 1 Active aspirin (ASPIRIN) 81 MG chew tablet Take 1 (one) tablet by mouth once daily 100 tablet 4 1 Active metoprolol succinate XL 24hr (TOPROL XL) 50 MG tablet Take 1 (one) tablet by mouth once daily 90 tablet 4 2 Active Active Problems Problem Noted Date Diagnosed Date Palpitations 08/04/2021 Diagnosis unknown 06/28/2017 Immunizations Immunization Administration Dates Next Due INFLUENZA VACCINE, QUADR. (F LUZONE; FLULAVAL; FLUARIX; AFLURIA QUADRIVALENT; 6MO+), 0.5 ML (IIV4) 06/29/2017 Social History Tobacco Use Types Packs/Day Years Used Date Smoking Tobacco: Every Day Cigarettes 0.5 40.7 Started: 1984 Smokeless Tobacco: Never Tobacco Cessation:Ready to Q uit: No; Counseling Given: Yes Alcohol Use Standard Drinks/Week Comments Yes 1 (1 standard drink = 0.6 oz pur e alcohol) 1 drink per week/seldom Comments No Sex and Gender Information Value Date Recorded Sex Assigned at Female 07/07/2021 10:25 AM CDT Legal Sex Female 5:21 PM CDT Gender Identity Female 07/07/2021 10:25 AM CDT Sexual Orientation Straight 07/07/2021 10 :25 AM CDT Last Filed Vital Signs Vital Sign Reading Time Taken Comments Blood Pressure 102/74 08/04/2021 8:48 AM COMPENSATION ADMINISTRATOR Pulse 99 08/04/2021 8:48 AM COMPENSATION ADMINISTRATOR Temperature 37.1 C (98.8 F) 06/29/2017 10:57 AM CDT Respiratory Rate 14 08/04/2021 8:48 AM COMPENSATION ADMINISTRATOR Oxygen Saturation 93% 06/29/2017 10:57 AM CDT Inhaled Oxygen Concentration - - Weight 108.4 kg (239 lb) 08/04/2021 8:48 AM COMPENSATION ADMINISTRATOR Height 166.4 cm (5' 5.5) 06/28/2017 6:37 AM CDT Body Mass Index 39.17 06/28/2017 6:37 AM CDT Plan of Treatment Health Maintenance Due Date Last Done Comments IRINEO BradleyAGES 45-75) - COL ON CA SCREENING 1975 COLON MONITORING 1975 COLONOSCOPY - COLON CA SCREENING 1975 CT COLONOGRAPHY - COLON CA SCREENING 1975 Colorectal Cancer Screening 1975 FIT - COLON CA SCREENING 1975 FLEX SIG - COLON CA SCREENING 1975 MAMMOGRAM 1975 HIV SCREENING 1990 HEPATITIS C SCREENING 03/12/1993 DTAP/TDAP/TD VACCINES (1 - Tdap) 1994 HEPATITIS B VACCINE (1 of 3 - 19+ 3-dose series) 1994 DEPRESSION SCREENING 09/26/2024 PNEUMOCOCCAL VACCINE 50+ (1 of 1 - PCV) 2025 ZOSTER VACCINE (1 of 2) 2025 COVID-19 VACCINE (1 - 2023-2 5 season) 2025 INFLUENZA VACCINE (#1) 2025 9, 07/24/2018, 06/29/2017 HIB VACCINE Aged Out No longer eligi ble based on patient's age to complete this topic HPV VACCINE Aged Out No longer eligi ble based on patient's age to complete this topic MENINGOCOCCAL (Group B) VACCINE SHARED DECISION-MAKING Aged Out No longer eligible based on patient's age to complete this topic MENINGOCOCCAL GROUPS A/C/Y/W VACCINE Aged Out No longer eligible b ased on patient's age to complete this topic Insurance MEDICARE Advance Directives * Full Code (Latest Code Status on File) Date Activated Date Inactivated Comments 06/28/2017 2:34 PM 06/29/2017 2:48 PM Care Teams Cone Cleaner Relationship Specialty Start Date End Date Tila Bernal APRN-CNP PCP - General 08/16/22
--- OUTSIDE RECORDS SUMMARY | 2025-05-30 11:03 | XMS_ITS | Clinical Summary ---
Author Organization [address] Address [address] [place] [id number] Care Team Providers Care Risk Reduction Counselor Name Role Phone Yoly Rivera NP Primary Care Provider Stan Haq MD Unavailable Snagita Aguiar MD Unavailable Damian Carrizales MD Unavailable Emir Bhagat MD Unavailable [phone] Allergies Active Allergy Reactions Criticality Noted Date Comments Diclofenac Other (See comments) 04/18/2025 Rectal bleeding Ibuprofen Other (See comments) 04/18/2025 Rectal bleeding Orphenadrine Citrate Hives,Itching,Rash Medium 018 Acetaminophen Other (See comments) Medium 04/22/2025 Bloody stool Medications busPIRone (BUSPAR) 10 mg tablet 023 Active modafiniL (PROVIGIL) 200 mg tablet Take 1 tablet (200 mg total) by mouth daily 30 tablet 2 024 Active Additional Information Patient not taking.Reported on 04/24/2025 hydrOXYzine (ATARAX) 10 mg tablet Take 1 tablet (10 mg total) by mouth 2 (two) times a day as needed 025 Active buPROPion XL (WELLBUTRIN XL) 150 mg 24 hr tablet Take 1 tablet (150 mg total) by mouth 025 Active Vraylar 1.5 mg capsule capsule Take 1 capsule (1.5 mg total) by mouth Active ascorbic acid (VITAMIN C ORAL) Take by mouth Active BIOTIN ORAL Take by mouth Acti ve cetirizine (ZyrTEC) 10 mg tabletIndication s:Environmental and seasonal allergies Take 1 tablet (10 mg total) by mouth daily as needed for allergies 90 tablet 3 025 2025 Active desvenlafaxine ER 50 mg 24 hr tablet Active albuterol HFA (PROVENTIL HFA,VENTOLIN HFA,PROAIR HFA) 90 mcg/actuation inhaler Inhale 2 puffs every 6 (six) hours as needed for wheezing or shortness of breath 1 each Active levothyroxine (SYNTHROID) 50 mcg tablet Take 1 tablet (50 mcg total) by mouth daily 90 tablet 3 Active lidocaine (LIDODERM) 5 %Indications:Chr onic left hip pain Place 2 patches on the skin daily for 12 hours Apply to painful area 12 hours per day, remove for 12 hours. 90 patch 1 025 Active Additional Information Patient not taking.Reported on 04/24/2025 metFORMIN XR (GLUCOPHAGE XR) 500 mg 24 hr tabletIndication s:Prediabetes Take 1 tablet (500 mg total) by mouth daily with breakfast 90 tablet 1 025 2025 Active hydrocortisone (ANUSOL-HC) 25 mg suppository Insert 1 suppository (25 mg total) into the rectum 2 (two) times a day 28 suppository Active Additional Information Patient not taking.Reported on 04/24/2025 famotidine (PEPCID) 40 mg tablet Take 1 tablet (40 mg total) by mouth daily 90 tablet 1 Active fluticasone-umec lidin-vilanter (Trelegy Ellipta) 200-62.5-25 mcg inhaler Inhale 1 puff daily 60 each 11 Active ibuprofen (ADVIL,MOTRIN) 800 mg tabletIndication s:Chronic left hip pain TAKE 1 TABLET BY MOUTH EVERY 8 HOURS NEEDED FOR PAIN 90 tablet Active Additional Information Patient not taking.Reported on 04/24/2025 gabapentin (NEURONTIN) 300 mg capsuleIndicatio ns:Vasomotor Symptoms associated with Menopause Take 1 capsule (300 mg total) by mouth 3 (three) times a day 270 capsule 1 025 Active atorvastatin (LIPITOR) 80 mg tabletIndication s:Mixed hyperlipidemia TAKE 1 TABLET BY MOUTH EVERY DAY 100 tablet 1 025 Active acetaminophen (TylenoL) 325 mg tablet Take 1 tablet (325 mg total) by mouth every 4 (four) hours as needed Active cyclobenzaprine (FLEXERIL) 10 mg tabletIndication s:Chronic left hip pain TAKE ONE-HALF TO 1 TABLET (5-10 MG TOTAL) BY MOUTH 3 (THREE) TIMES A DAY NEEDED FOR MUSCLE SPASMS 60 tablet 1 025 Active metoprolol XL (TOPROL-XL) 25 mg extended release tabletIndication s:Hypertension, essential TAKE 1 TABLET (25 MG TOTAL) BY MOUTH DAILY. 90 tablet 1 025 2025 Active linaCLOtide (Linzess) 290 mcg capsule Take 1 capsule (290 mcg total) by mouth daily 30 capsule 2 Active ondansetron ODT (ZOFRAN-ODT) 4 mg disintegrating tablet Take 1 tablet (4 mg total) by mouth every 6 (six) hours as needed for nausea or vomiting 12 tablet Active phentermine 30 mg capsule Take 1 capsule (30 mg total) by mouth every morning 30 capsule 025 2024 Active linaCLOtide (Linzess) 72 mcg capsule Oral 024 2024 Discontinued(A lternate therapy) metoprolol XL (TOPROL-XL) 25 mg extended release tabletIndication s:Hypertension, essential Take 1 tablet (25 mg total) by mouth daily 100 tablet 025 2024 Discontinued cyclobenzaprine (FLEXERIL) 10 mg tabletIndication s:Chronic left hip pain TAKE ONE-HALF TO 1 TABLET (5-10 MG TOTAL) BY MOUTH 3 (THREE) TIMES A DAY NEEDED FOR MUSCLE SPASMS 60 tablet 025 2024 Discontinued(R eorder) phentermine 30 mg capsuleIndicatio ns:Morbid obesity with BMI of 45.0-49.9, adult (HCC) Take 1 capsule (30 mg total) by mouth every morning 30 capsule 025 2024 Active Problems Problem Noted Date Diagnosed Date Sacroiliac joint pain 04/24/2025 Preventative health care 04/18/2025 Assessment & Plan (04/18/2025 2:43 PM CDT): - New or chronic worsening conditions: Chronic hip pain, weight gain - Mental health: Stable anxiety/depression/bipolar - Dental health: Up to date with regular dental care and cleaning. Discussed importance of regular tooth brushing, flossing, and dental visits. - Nutrition: Stressed importance of moderation in sodium/caffeine intake, saturated fat and cholesterol, caloric balance, sufficient intake of fresh fruits, vegetables - Exercise: Stressed the importance of regular exercise - Immunizations: Age and sex appropriate immunizations reviewed and offered - Cervical Cancer screening: reccomended - Breast Cancer screening: Up-to-date - Colon cancer screening: Up-to-date - Lung cancer screening: Recommend, order placed - Bone desnity/osteoporosis screening: Not indicated at this time - control: Menopausal Kidney stones 04/18/2025 Assessment & Plan (04/18/2025 2:43 PM CDT): -Chronic, suboptimally controlled -Patient endorses history of kidney stones -Patient recently had an abdominal CT that did not note new kidney stones -Referral to urology placed -Continue current treatment plan Orders: POCT urinalysis dipstick Colitis 03/13/2025 Rectal bleeding 03/13/2025 LLQ pain 03/13/2025 History of colonic polyps 03/13/2025 Sacroiliitis 02/08/2025 Family history of cardiovascular disease 025 Assessment & Plan (11/29/2024 12:47 PM CUSTOM GRINDER): History of multiple family members with cardiovascular disease and MIs Chronic left hip pain 11/28/2024 Assessment & Plan (04/18/2025 2:43 PM CDT): -Chronic, not at goal -Patient endorses chronic left hip pain which first started after fall a several months ago -Patient is currently taking Tylenol, lidocaine patches, Flexeril 10 mg -Established with ortho and pain management -OTC medication providing minimal relief -X-ray and MRI imaging has been performed -Continue current treatment plan continue current treatment plan with specialists Assessment & Plan (01/30/2025 12:46 PM CDT): -Chronic, not at goal -Patient endorses chronic left hip pain which first started after fall a several months ago -Patient is currently taking Tylenol, ibuprofen -Diclofenac caused heavy menstrual cycles -OTC medication providing minimal relief -X-ray imaging of left hip shows mild osteoarthritis -Has a establish with pain management -Diclofenac 75 mg b.i.d. discontinued -Ibuprofen 800, lidocaine patches, Flexeril 5-10 mg t.i.d. as needed prescribed -MRI of left hip ordered; 1 time Xanax ordered for MRI -Continue current treatment plan Assessment & Plan (12/21/2024 11:45 AM CDT): -Chronic, not at goal -Patient endorses ongoing left hip pain after fall a few months ago -OTC medication providing minimal relief -X-ray imaging ordered of left hip shows mild osteoarthritis -Has upcoming appointment with pain management -Diclofenac 75 mg b.i.d. prescribed -Continue current treatment plan Assessment & Plan (11/29/2024 1:45 PM CUSTOM GRINDER): -Chronic, not at goal -Patient endorses left hip pain for greater than 1 month after sustaining fall -OTC medication providing minimal relief -X-ray imaging ordered of left hip; will decide upon further management once results are available -Continue current treatment plan Environmental and seasonal allergies 10/09/2024 Assessment & Plan (10/09/2024 10:50 AM CUSTOM GRINDER): -chronic, not at goal -currently uses Benadryl [...] (obstructive sleep apnea) 01/23/2024 Assessment & Plan (04/18/2025 2:43 PM CDT): -chronic, at goal -patient currently reports compliance with CPAP machine -denies any excessive fatigue or daytime sleepiness -continue current treatment plan Assessment & Plan (11/29/2024 1:46 PM CUSTOM GRINDER): -chronic, at goal -patient currently reports compliance with CPAP machine -denies any excessive fatigue or daytime sleepiness -continue current treatment plan Assessment & Plan (10/09/2024 10:42 AM CUSTOM GRINDER): -chronic, at goal -patient currently reports compliance with CPAP machine -denies any excessive fatigue or daytime sleepiness -continue current treatment plan Assessment & Plan (01/23/2024 1:11 PM CDT): Remain on BiPAP with all sleep We have discussed the risks of uncorrected sleep apnea Continue to follow the sleep medicine Moderate persistent asthma without complication 01/23/2024 Assessment & Plan (04/18/2025 2:43 PM CDT): -chronic, controlled -patient currently prescribed albuterol rescue inhaler, Advair disc maintenance inhaler -patient reports their asthma/COPD is fairly well-controlled on current regimen -patient denies needing to use rescue inhaler frequently -no wheezing noted on exam -continue current treatment plan Assessment & Plan (10/09/2024 10:49 AM CUSTOM GRINDER): -chronic, stable -patient currently prescribed albuterol rescue [...] use Hypertension, essential 10/03/2023 Assessment & Plan (04/18/2025 2:43 PM CDT): BP Readings from Last 3 Encounters: 04/18/25 128/82 03/26/25 128/81 02/07/25 129/86 -chronic, at goal of <140/90 -currently taking metoprolol 25 mg daily -patient reports checking blood pressure regularly at home -encourage patient to continue low-sodium diet -continue current treatment plan Assessment & Plan (10/09/2024 10:34 AM CUSTOM GRINDER): BP Readings from Last 3 Encounters: 10/09/24 [...] ECG Assessment & Plan (10/03/2023 10:52 AM CUSTOM GRINDER): Improving. Patient has been on metoprolol xl for many years. Blood pressure on lower side today. C/o of fatigue. Will lower from 50mg to 25mg daily. Have her f/u in 3 months for recheck on blood pressure and we will get an EKG with a physical at that time. May consider changing medication at that time as well Prediabetes 10/03/2023 Assessment & Plan (04/18/2025 2:43 PM CDT): Lab Results Component Value Date HGBA1C 5.9 (H) 11/29/2024 -chronic, controlled -currently takes metformin 500 mg daily -Patient endorses due to chronic pain, she is not able to exercise and has gained weight recently -reiterated importance of diabetic foot and eye exams -most recent hemoglobin A1c shown above -continue current treatment plan Orders: Hemoglobin A1c; Future Assessment & Plan (01/30/2025 12:44 PM CDT): Lab Results Component Value Date HGBA1C 5.9 (H) 11/29/2024 -chronic, slightly worsened -currently through diet and exercise -Patient endorses due to chronic pain, she is not able to exercise and has gained weight recently -reiterated importance of diabetic foot and eye exams -most recent hemoglobin A1c shown above -Metformin 500 mg daily prescribed -continue current treatment plan Assessment & Plan (11/29/2024 12:48 PM CUSTOM GRINDER): Lab Results Component Value Date HGBA1C 5.8 (H) 04/12/2024 -chronic, at goal -currently through diet and exercise -reiterated importance of diabetic foot and eye exams -most recent hemoglobin A1c shown above -will recheck lab work -continue current treatment plan Assessment & Plan (10/09/2024 10:35 AM CUSTOM GRINDER): Lab Results Component Value Date HGBA1C 5.8 [...] down. Assessment & Plan (10/03/2023 10:54 AM CUSTOM GRINDER): Stable. Patient has pre diabetes but not [...] click on Healthy Eating for a Healthy Weight. They also have information on prediabetes and prevention of type 2 diabetes. Also click Health Topics and search prediabetes Acquired hypothyroidism 10/03/2023 Assessment & Plan (04/18/2025 2:43 PM CDT): Lab Results Component Value Date TSH 3.48 11/29/2024 -chronic, controlled -patient currently takes Synthroid 50 mcg daily -most recent TSH within normal range -continue current treatment plan Assessment & Plan (11/29/2024 12:47 PM CUSTOM GRINDER): Lab Results Component Value Date TSH 2.81 10/25/2024 -chronic, controlled -patient currently takes Synthroid 50 mcg daily -most recent TSH within normal range -Will recheck TSH and T4 -continue current treatment plan Assessment & Plan (10/09/2024 10:48 AM CUSTOM GRINDER): Lab Results Component Value Date TSH 2.69 04/12/2024 -chronic, controlled -patient currently takes Synthroid 50 mcg daily -most recent TSH within normal range -Will recheck TSH and T4 -continue current treatment plan Assessment & Plan (01/01/2024 8:09 PM CDT): TSH now within normal limits. Continue levothyroxine 50mcg daily. F/u 6 months Assessment & Plan (10/03/2023 10:56 AM CUSTOM GRINDER): Will increase levothyroxine to 50 mcg daily based on her last TSH which was done last week. Will have her follow-up in 3 months with repeat TSH Stage 3a chronic kidney disease 10/03/2023 Assessment & Plan (10/09/2024 10:37 AM CUSTOM GRINDER): Lab Results Component Value Date CREATININE 1.03 [...] monitor Assessment & Plan (10/03/2023 10:57 AM CUSTOM GRINDER): Lab Results Component Value Date GFRNAA 55 [...] tomatoes, oranges, milk, dark melony and chocolate. Rawlings juice, citrus juices, and tomato juice are also high in potassium. Do not use salt substitutes, as they may contain potassium. Additional resources available online from the [employer] at www.kidney.org/nutrition Labs are stable. Continue tight blood pressure control. Encouraged adequate fluid intake. Avoid nsaids. Will continue to monitor. Multiple lipomas 10/03/2023 Assessment & Plan (10/03/2023 10:58 AM CUSTOM GRINDER): Has 3 lipomas. Most bothersome 1 is on her right inner thigh. Will send her to plastic surgery for evaluation of removal which patient is considering at this time Morbid obesity with BMI of 45.0-49.9, adult 05/2023 Assessment & Plan (04/18/2025 2:43 PM CDT): Wt Readings from Last 3 Encounters: 04/18/25 (!) 139.7 kg (308 lb) 01/30/25 136.1 kg (300 lb) 12/20/24 132.2 kg (291 lb 8 oz) Body mass index is 48.23 kg/m . -Stable, not at goal of <30 bmi -Discussed recommendations for exercise at least 30 minutes moderate to vigorous exercise as tolerated most days of the week. (minimum 150 minutes weekly) -Discussed importance of well-balanced diet -Wegovy denied -Currently takes phentermine 15 mg daily -Recently established with nutrition -Patient reports she has not noticed a good improvement in appetite suppression with her phentermine -Increase phentermine to 30 mg daily -Continue current treatment plan Orders: phentermine 30 mg capsule; Take 1 capsule (30 mg total) by mouth every morning Assessment & Plan (01/30/2025 12:43 PM CDT): Wt Readings from Last 3 Encounters: 01/30/25 136.1 kg (300 lb) 12/20/24 132.2 kg (291 lb 8 oz) 11/28/24 130.5 kg (287 lb 12.8 oz) Body mass index is 46.98 kg/m . -Stable, not at goal of <30 bmi -Discussed recommendations for exercise at least 30 minutes moderate to vigorous exercise as tolerated most days of the week. (minimum 150 minutes weekly) -Discussed importance of well-balanced diet -Wegovy denied -Discussed possibility of phentermine; encourage patient to reach out to psychiatrist about the possibility of this medicine -Continue current treatment plan Assessment & Plan (12/21/2024 11:41 AM CDT): Wt Readings from Last 3 Encounters: 12/20/24 132.2 kg (291 lb 8 oz) 11/28/24 130.5 kg (287 lb 12.8 oz) 11/27/24 130.8 kg (288 lb 6.4 oz) Body mass index is 45.64 kg/m . -Stable, not at goal of <30 bmi -Discussed recommendations for exercise at least 30 minutes moderate to vigorous exercise as tolerated most days of the week. (minimum 150 minutes weekly) -Discussed importance of well-balanced diet -Wegovy authorization still pending Assessment & Plan (11/29/2024 12:47 PM CUSTOM GRINDER): Wt Readings from Last 3 Encounters: 11/28/24 130.5 kg (287 lb 12.8 oz) 11/27/24 130.8 kg (288 lb 6.4 oz) 10/17/24 124.1 kg (273 lb 9.6 oz) Body mass index is 45.08 kg/m . -Stable, not at goal of <30 bmi -Discussed recommendations for exercise at least 30 minutes moderate to vigorous exercise as tolerated most days of the week. (minimum 150 minutes weekly) -Discussed importance of well-balanced diet -patient expressed interest with weight loss medication -discussed risks and benefits of weight loss medication options -starting dose of wegovy prescribed -follow up in 1 month for re-evaluation Assessment & Plan (10/09/2024 10:46 AM CUSTOM GRINDER): Wt Readings from Last 3 Encounters: 10/09/24 [...] counseling. Assessment & Plan (10/03/2023 10:54 AM CUSTOM GRINDER): BMI Follow-up includes: nutrition counseling and exercise [...] script Assessment & Plan (10/13/2022 8:02 AM CUSTOM GRINDER): linzess 290 helps but causes diarrhea, doesn't like taking it. Will decrease to the 145mcg dose. Constipation guidelines. Discussed diet, exercise. Refer to GI - she saw Dr. Squires at [facility] for her colonoscopy which was done in 2021 and was negative with exception of polyps with rec. 5 year f/u. Chronic fatigue 10/02/2022 Assessment & Plan (10/03/2023 10:55 AM CUSTOM GRINDER): Her mental health nurse practitioner just did [...] related Assessment & Plan (10/02/2022 9:53 AM CUSTOM GRINDER): Encouraged her to talk to her psychiatrist which she has recently established with here in [place] about Remeron if that could be making [...] them to get back to that activity. Recurrent major depressive disorder, in full rem ission 06/28/2022 Assessment & Plan (04/18/2025 2:43 PM CDT): -chronic, controlled -patient currently takes wellbutrin 150 mg, vraylar 1.5 mg daily, hydroxyzine 10 b.I.d, Pristiq 100 mg daily, BuSpar 10 mg -follows with psychiatry -patient denies any worsening of depressed mood, thoughts of harming herself or others, or worsening anxiety -continue current treatment plan Assessment & Plan (10/09/2024 10:48 AM CUSTOM GRINDER): -chronic, stable -patient currently takes wellbutrin 150 [...] CDT): As above. [place], symptoms stable Assessment & Plan (06/28/2022 2:50 PM CDT): Long hx of. Had psychiatrist back home. Will refer back to psychiatrist. Agreed to prescribe psych. Medications for 6 months while establishing care. Bipolar 1 disorder 06/28/2022 Assessment & Plan (04/18/2025 2:43 PM CDT): -chronic, controlled -patient currently takes wellbutrin 150 mg, vraylar 1.5 mg daily, hydroxyzine 10 b.I.d, Pristiq 100 mg daily, BuSpar 10 mg -follows with psychiatry -patient denies any worsening of depressed mood, thoughts of harming herself or others, or worsening anxiety -continue current treatment plan Assessment & Plan (10/09/2024 10:48 AM CUSTOM GRINDER): -chronic, stable -patient currently takes wellbutrin 150 [...] 10:24 AM CDT): Continues to see psychiatric tech in [place]. Stable on vraylor and remeron. Buproprion, buspar, pristiq. Assessment & Plan (06/28/2022 2:51 PM CDT): On Vraylar 6mg. Agreed to prescribe for 6 months until establishes with psychiatry here. Mixed hyperlipidemia 06/28/2022 Assessment & Plan (04/18/2025 2:43 PM CDT): -chronic, controlled -currently takes lipitor 80 mg daily -Discussed importance of well-balanced diet -will recheck lab values -continue current treatment plan Orders: Lipid panel; Future Assessment & Plan (10/09/2024 10:32 AM CUSTOM GRINDER): -chronic, stable -currently takes lipitor 80 mg daily -Discussed importance of well-balanced diet -will recheck lab values at next visit -continue current treatment plan Assessment & Plan (04/16/2024 10:51 AM CDT): Lipid abnormalities are stable, [facility] I reviewed current lipid panel with patient today Continue statin therapy. Lipitor (atorvastatin) emphasized lifestyle changes, keeping weight down. Order for lipid panel was given today to be obtained. Pt voiced understanding of lab drawn and continuation of current medication regimen. Assessment & Plan (10/03/2023 10:54 AM CUSTOM GRINDER): Lipid abnormalities are stable. Pharmacotherapy as ordered. Lipids will be reassessed in 6 months. Assessment & Plan (03/31/2023 10:32 AM CDT): Lipid abnormalities are stable, [facility] Pharmacotherapy as ordered. Pt voiced understanding of continuation of current medication regimen. Continue atorvastatin. Last lipid panel done last week. LDL 102 Assessment & Plan (10/02/2022 9:44 AM CUSTOM GRINDER): Lipid abnormalities are stable, reviewed previous lipid levels in epic. Pharmacotherapy as ordered. Order for lipid panel was given today to be obtained. Pt voiced understanding of lab drawn and continuation of current medication regimen. Assessment & Plan (06/28/2022 2:52 PM CDT): Lipid abnormalities are stable, reviewed previous lipid levels in epic. Pharmacotherapy as ordered. Order for lipid panel was given today to be obtained. Pt voiced understanding of lab drawn and continuation of current medication regimen. Nasal septal deviation 05/16/2019 Disc degeneration, lumbar [...] not currently treated. 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 Will refer back to pulmonology [...] vaccination Assessment & Plan (11/23/2017 12:33 PM CUSTOM GRINDER): Sx are consistent with COPD. 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 Do not bend or [...] refuse treatment. The above information is an financial aids officer only. It is not intended as medical advice for individual conditions or treatments. Talk to your doctor, nurse or pharmacist before following any medical regimen to see if it is safe and effective for you. 2017 [employer] Information is for End User's use only and may not be sold, redistributed or otherwise used for commercial purposes. All illustrations and images included in CareNotes are the copyrighted property of [employer] or [employer]. Patient Education Iliotibial Band Syndrome Exercises TRANSFER OPERATOR: Iliotibial band syndrome (ITBS) , also known [...] to ask them during your visits. 2017 [employer] Information is for End User's use only and may not be sold, redistributed or otherwise used for commercial purposes. All illustrations and images included in CareNotes are the copyrighted property of [employer] or [employer]. The above information is an financial aids officer only. It is not intended as medical advice for individual conditions or treatments. Talk to your doctor, nurse or pharmacist before following any medical regimen to see if it is safe and effective for you. KRISHNA on CPAP 06/28/2022 01/23/2024 Assessment & Plan (10/03/2023 10:55 AM CUSTOM GRINDER): Patient follows with sleep Medicine, Dr. Aguiar and wears a CPAP Assessment & Plan (03/31/2023 10:33 AM CDT): Compliant with cpap, but feels like it doesn't do much good. Just had sleep study repeated. Going to see sleep medicine tomorrow again to discuss results. Assessment & Plan (10/02/2022 9:48 AM CUSTOM GRINDER): Patient just started using her CPAP full-time again. She is had difficulty in the past using the fullface mask. She has not noticed a whole lot of difference in fatigue even though she is made an effort into using the CPAP. She thinks the CPAP is 2 or 3 years old but has not had any monitoring since then.(patient has moved from [place]). I will see if pulmonology wants to take over management of the CPAP or if I need to refer her back to Sleep Medicine here Encounter for routine adult physical exam with abnormal findings 06/28/2022 04/17/2025 Assessment & Plan (04/16/2024 10:56 AM CDT): [...] ordered Assessment & Plan (10/02/2022 9:50 AM CUSTOM GRINDER): -Recommended: Healthy diet. Avoiding junk food/fast food. [...] on metoprolol for possibly a fast heart rate. Denies having a hx of hypertension. [facility] why she is on it. Will ask for previous pcp records to determine why she is on metoprolol. Will continue current dose. F/u 3 months Class 2 obesity with body ma ss index (BMI) of 39.0 to 39.9 in adult 06/28/2022 03/31/2023 Assessment & Plan (10/13/2022 8:35 PM CUSTOM GRINDER): BMI Follow-up includes: exercise counseling. Assessment & Plan (07/05/2022 2:38 PM CDT): HPI: Condition is not at/near goal goal BMI <30 A&P: Healthy, high-protein, lower carbohydrate, lower fat lifestyle and exercise for 150min/week recommended Recommend tracking everything you put in your mouth on an damian like Cobrain Lower carb substitutions: Aldi carries a zero [...] in much longer they will become mushy [place] and/or coconut flour instead of regular flour [...] pork rinds For yogurt, try [employer] Good [place] yogurt Use Pinterest for recipe ideas. Type in low carb... [...] & Plan (03/31/2023 10:23 AM CDT): At [facility] in [facility]. After foot surgery. She was on eliquis [...] of recurrence off anticoagulation discussed with Ms. Grider. Ok to stop anticoagulation at this time Assessment & Plan (11/23/2017 12:32 PM CUSTOM GRINDER): Provoked pulmonary embolism. No clear evidence of acute cor pulmonale Recs: 1) Continue eliquis for 6 months 2) Ok to return to work. Dyspnea on exertion 10/03/19 24 Assessment & Plan (03/31/2023 10:29 AM CDT): Pt complains of dyspnea on exertion due to her weight Encounters Date Type Department Care Team Description 05/24/2025 11:03 AM CDT - 05/24/2025 11:59 PM CDT Hospital Encounter [facility] [address] [place] [address] Nicotine dependence, cigarettes, in remission Discharge Disposition: Discharge to home or self care 05/22/2025 3:20 PM CDT Anesthesia Event [address] [address] Dale Salinas DO Kory, Christopher James, MD 05/22/2025 1:30 PM CDT - 05/22/2025 2:00 PM CDT Surgery [address] [address] Damian Carrizales MD COLON REMOVAL SNARE 05/22/2025 12:10 PM CDT - 05/22/2025 5:08 PM CDT Hospital Encounter [address] [place] [address] Damian Carrizales MD Colitis; Rectal bleeding; LLQ pain; History of colonic polyps Discharge Disposition: Discharge to home or self care 05/22/2025 Telephone [facility] [address] [place] [address] Gabriela Snow RN 05/20/2025 Orders Only [facility] Gastroenterology at [address] [place] [address] Damian Carrizales MD 05/09/2025 Orders Only [facility] Primary Care at [address] [place] [address] Yoly Rivera NP Kidney stones (Primary Dx) 05/07/2025 Telephone [facility] Primary Care at [address] [place] [address] Yoly Rivera, GISELE Appointment 05/06/2025 Orders Only [facility] Gastroenterology at [address] [place] [address] Damian Carrizales MD 05/03/2025 12:41 PM CDT - 05/03/2025 11:59 PM CDT Hospital Encounter [facility] [address] [place] [address] [address] [place] [address] Emir Bhagat MD Sacroiliitis Discharge Disposition: Discharge to home or self care 04/24/2025 9:30 AM CDT Office Visit [facility] Orthopedics and Sports Medicine [address] [place] [address] [address] [place] [address] Sammi Quick PA Sacroiliac joint pain (Primary Dx) 04/24/2025 7:47 AM CDT - 04/24/2025 11:59 PM CDT Hospital Encounter [facility] Orthopedics and Sports Medicine [address] [place] [address] [address] [place] [address] Discharge Disposition: Discharge to home or self care 04/22/2025 11:15 AM CDT Office Visit [facility] Pulmonary at [address] [place] [address] Stan aHq MD Obstructive sleep apnea (Primary Dx); Moderate persistent asthma without complication; Nicotine dependence, cigarettes, in remission; Class 3 severe obesity due to excess calories without serious comorbidity with body mass index (BMI) of 45.0 to 49.9 in adult 04/19/2025 Results Follow-Up [facility] Primary Care at [address] [place] [address] Yoly Rivera, GISELE Lipid panel, Hemoglobin A1c 04/18/2025 12:00 PM CDT Lab [facility] Outpatient Lab at [address] [address] 04/18/2025 11:55 AM CDT - 04/18/2025 11:59 PM CD[place] [address] Mixed hyperlipidemia; Prediabetes Discharge Disposition: Discharge to home or self care 04/18/2025 10:30 AM CDT Office Visit [facility] Primary Care at [address] [place] [address] Yoly Rivera NP Preventative health care (Primary Dx); Hypertension, essential; Mixed hyperlipidemia; Prediabetes; Acquired hypothyroidism; Recurrent major depressive disorder, in full remission; Bipolar 1 disorder (HCC); Kidney stones; Chronic left hip pain; Moderate persistent asthma without complication; KRISHNA (obstructive sleep apnea); Morbid obesity with BMI of 45.0-49.9, adult (HCC) 04/18/2025 Orders Only [facility] Primary Care at [address] [place] [address] Yoly Rivera, GISELE Kidney stones (Primary Dx) 04/17/2025 1:00 PM CDT - 04/17/2025 11:59 PM CDT Hospital Encounter [facility] [address] [facility] [address] [place] [address] Morbid (severe) obesity due to excess calories (HCC) Discharge Disposition: Discharge to home or self care 04/08/2025 11:15 AM CDT Lab [address] [address] 04/08/2025 11:11 AM CDT - 04/08/2025 11:59 PM CDT Hospital Encounter [facility] 1 [place] [address] Rectal bleeding; LLQ pain Discharge Disposition: Discharge to home or self care 04/05/2025 Telephone [facility] 1 [place] [address] QuincyLoy 03/27/2025 Orders Only [facility] Primary Care at [address] [place] [address] Yoly Rivera NP Hot flashes 03/26/2025 2:55 PM CDT - 03/26/2025 11:59 PM CDT Hospital Encounter [facility] [address] [place] [address] [address] [place] [address] Eda Baer NP Sacroiliitis (Primary Dx) Discharge Disposition: Discharge to home or self care 03/15/2025 Orders Only [facility] Pulmonary at [address] [place] [address] Stan Haq MD 03/13/2025 Results Follow-Up [facility] Gastroenterology at [address] [place] [address] Damian Carrizales MD CRP (acute phase), CBC with auto differential, Comprehensive metabolic panel, Additional followed-up results: 3 03/13/2025 Telephone [facility] Primary Care at [address] [place] [address] Yoly Rivera NP 03/06/2025 12:45 PM CDT Lab [facility] Outpatient Lab at [address] [address] 03/05/2025 9:30 AM CDT Lab [address] Rectal bleeding; LLQ pain 03/05/2025 9:15 AM CDT Office Visit [facility] Gastroenterology at [address] [place] [phone] Damian Carrizales MD Rectal bleeding (Primary Dx); LLQ pain; Irritable bowel syndrome with constipation; Gastroesophageal reflux disease, unspecified whether esophagitis present 03/04/2025 Telephone [facility] Primary Care at [address] [place] [address] Yoly Rivera NP Recommendation Request 02/28/2025 Orders Only [facility] Primary Care at [address] [place] [address] Yoly Rivera, GISELE Hot flashes (Primary Dx) from Last 3 Months Immunizations Immunization Administration Dates Next Due Influenza, Quadrivalent, Spl it, Intramuscular 06/29/2022 Influenza, Quadrivalent, Spl it, Preservative Free, Intramuscular 10/03/2023,06/28/2022,06/28/2019,07/24,06/29/2017 Influenza, Trivalent, Preser vative Free, Intramuscular 07/25/2015 Influenza, Unspecified 07/17/2024,2022(Deferred: Patient Refused),11/25/2021(Deferred: Patient Refused),06/28/2019,07/24/2018 Pfizer SARS-CoV-2 Monovalent Vaccination (12+ Yrs) PURPLE 06/29/2022,05/13/2021,04/14/2021 Pneumococcal Conjugate Pcv20 10/13/2022 Pneumococcal Polysaccharide PPV23 07/24/2018 Sars-CoV-2, Unspecified 05/13/2021,04/14/2021 Tdap 07/05/2022 Surgical History Surgery Date Site/Laterality Comments GALLBLADDER SURGERY 09/26/2008 - 09/25/2009 HYSTERECTOMY FOOT SURGERY 09/26/2017 - 10/26/2017 Bilateral PARATHYROIDECTOMY 06/26/2017 - 07/26/2017 FOREARM FRACTURE SURGERY 09/26/2007 - 09/25/2008 DENTAL SURGERY 2023, multiple - denture repair CHOLECYSTECTOMY FRACTURE SURGERY COLONOSCOPY 07/27/2022 - 08/25/2022 Medical History Medical History Date Comments Asthma Anxiety Depression Hyperlipidemia COPD (chronic obstructive pulmonary disease) VTE (venous thromboembolism) 11/23/2017 Chronic pulmonary embolism (HCC) 12/08/2017 Obstructive sleep apnea 01/23/2024 Chronic bronchitis (HCC) Kidney stone Family History * Patient is adopted Medical History Relation Name Comments COPD Father Michael Clotting disorder Father Michael Diabetes Father Michael Early Father Michael Heart attack Father Michael Heart disease Father Michael Hypertension Father Michael Obesity Father Michael Stroke Father Michael Vision loss Father Michael Throat cancer Father's Sister No Known Problems Maternal Grandfather Mental illness Maternal Grandmother Asthma Mother Sheyla Depression Mother Sheyla Diabetes Mother Sheyla Early Mother Sheyla Emphysema Mother Sheyla Heart attack Mother Sheyla Heart disease Mother Sheyla Hypertension Mother Sheyla Learning disabilities Mother Sheyla Lung disease Mother Sheyla Obesity Mother Sheyla Vision loss Mother Sheyla No Known Problems Paternal Grandfather No Known Problems Paternal Grandmother Breast cancer Neg Hx Ovarian cancer Neg Hx Thyroid cancer Neg Hx Relation Name Status Comments Father Michael Father's Sister Maternal Grandfather Maternal Grandmother Mother Sheyla Paternal Grandfather Paternal Grandmother Social History Tobacco Use Types Packs/Day Years Used Date Smoking Tobacco: Former Cigarettes 1 35 1 987 - 2021 Smokeless Tobacco: Never Tobacco Cessation:Counseling Given: Yes Alcohol Use Standard Drinks/Week Comments No 0 (1 standard drink = 0.6 oz pur e alcohol) PHQ-2 Answer Date Recorded PHQ-2 Total Score (If total score is 3 or more points, staff should administer the PHQ-9) 0 04/18/2025 PHQ-9 Answer Date Recorded PHQ-9 Total Score 18 12/28/2024 AUDIT-C Answer Date Recorded Frequency of Alcohol Consumption Not on file 05/21/2025 Q2: How many drinks containi ng alcohol do you have on a typical day when you are drinking? Patient does not drink Frequency of Binge Drinking Not on file 04/27 Personal Safety Answer Date Recorded Have you ever been in or are you currently in a harmful physical or emotional relationship or is someone making you feel afraid or unsafe? Denies 05/22/2025 Comments No Sex and Gender Information Value Date Recorded Sex Assigned at Not on file Legal Sex Female 6:44 PM CUSTOM GRINDER Gender Identity Female 04/04/2022 5:01 PM CDT Sexual Orientation Straight 06/20/2024 1: 12 PM CDT Obstetrics History Para Term AB IAB SAB Ectopic Multiple Livin g Live Births 2 2 2 Date Outcome GA Total Labor Labor/2nd/3rd Weight Sex Type Anes PTL Shruthi A1 A5 Name Clin Term Term Last Filed Vital Signs Vital Sign Reading Time Taken Comments Blood Pressure 114/77 05/22/2025 4:50 PM CDT Pulse 73 05/22/2025 4:50 PM CDT Temperature 36.4 C (97.5 F) 05/22/2025 4:50 PM CDT Respiratory Rate 20 05/22/2025 4:50 PM CDT Oxygen Saturation 97% 05/22/2025 4:50 PM CDT Inhaled Oxygen Concentration - - Weight 140.2 kg (309 lb) 05/24/2025 11:19 AM CDT Height 167.6 cm (5' 6) 05/24/2025 11:19 AM CDT Body Mass Index 49.87 05/24/2025 11:19 AM CDT Plan of Treatment Health Maintenance Due Date Last Done Comments Hepatitis B Screening 1993 Lung Cancer Screening 2025 Zoster Vaccine (1 of 2) 2025 Influenza Vaccine (#1) 2025 , 10/03/2023, 06/29/2022, Additional history exists Breast Cancer Screening-Mammogram 10/08/2025 10/08/2024, 10/06/2023, 08/17/2022 Depression Screening 04/18/2026 04/18/2025, 01/30/2025, 12/28/2024, Additional history exists Regular Well Visit/Exam 18-64 04/18/2026, 04/18/2025, 04/16/2024, Additional history exists Colon Cancer Screening-Colonoscopy 05/22/20302024, 08/04/2022 DTaP/Tdap/Td Vaccine (2 - Td or Tdap) 07/05/2032 07/05/2022 Pneumococcal vaccine <65 Completed 10/13/2022, 06/27 Hepatitis C Screening Completed 04/12/2024 Covid-19 Vaccine Completed 07/17/2024, 12/2021, 06/29/2022, Additional history exists Goals Goal Patient Goal Type Associated Problems Recent Progress Patient-Stated? Author [facility] No Latonya Nava, RN Note: Patient will establish a comfort-function goal and identify the pain level that will allow the patient to perform desired activities and achieve an acceptable quality of life. Procedures Procedure Name Priority Date/Time Associated Diagnosis Comments ENDO ADD ON COLON BIOPSY 05/22/2025 3:10 PM CDT Colitis Rectal bleeding LLQ pain History of colonic polyps COLON REMOVAL SNARE 05/22/2025 3 :10 PM CDT Colitis Rectal bleeding LLQ pain History of colonic polyps SURGICAL PATHOLOGY STAT 05/22/2025 2: 24 PM CDT Colitis Rectal bleeding LLQ pain History of colonic polyps POCT GLUCOSE DEVICE Routine 05/22/2025 2 :19 PM CDT COLONOSCOPY 05/22/2025 12:28 PM CDT PAIN MGMT IMAGING SI JOINT LEFT Schedule Routine, Read Routine (OP Routine) 05/03/2025 1:08 PM CDT Sacroiliitis XR HIP LEFT 2 OR 3 VIEWS Schedule Routine, Read Routine (OP Routine) 04/24/2025 9:09 AM CDT Sacroiliac joint pain HEMOGLOBIN A1C Routine 04/18/2025 11:55 AM CDT Prediabetes LIPID PANEL Routine 04/18/2025 11:55 AM CDT Mixed hyperlipidemia POCT URINALYSIS DIPSTICK Routine 04/18/2025 11:19 AM CDT Kidney stones CT ABDOMEN PELVIS W CONTRAST Schedule MARIANNE, Read MARIANNE (Appt Today, Awaiting Results) 04/08/2025 11:55 AM CDT Rectal bleeding LLQ pain CREATININE, WHOLE BLOOD STAT 04/08/2025 11:18 AM CDT EGFR Routine 03/05/2025 9:26 AM CDT Rectal bleeding LLQ pain DIFFERENTIAL AUTO Routine 03/05/2025 9:2 6 AM CDT Rectal bleeding LLQ pain COMPREHENSIVE METABOLIC PANEL Routine 03/05/2025 9:26 AM CDT Rectal bleeding LLQ pain CBC WITH AUTO DIFFERENTIAL Routine 03/05/2025 9:26 AM CDT Rectal bleeding LLQ pain CRP (ACUTE PHASE) Routine 03/05/2025 9:2 6 AM CDT Rectal bleeding LLQ pain SCREENING MAMMOGRAM BILATERAL W JACKY Schedule Routine, Read Routine (OP Routine) 10/08/2024 8:57 AM CUSTOM GRINDER Screening mammogram, encounter for HEPATITIS C ANTIBODY Routine 04/12/2024 9:35 AM CDT Encounter for hepatitis C screening test for low risk patient from Last 3 Months or Most Recently Relevant to Health Maintenance Results * Surgical pathology (05/22/2025 2:24 PM CDT) Tissue (Polyp(s), colon/colorectal, esophageal, gastric) 05/22/2025 3:44 PM CDT Tissue specimen (specimen) (Polyp(s), colon/colorectal, esophageal, gastric) 05/22/2025 3:46 PM CDT Tissue specimen (specimen) (Polyp(s), colon/colorectal, esophageal, gastric) 05/22/2025 3:52 PM CDT Tissue specimen (specimen) (Colon, Biopsy) 05/22/2025 4:13 PM CDT Narrative PATHOLOGY [facility] ([place]) - 05/28/2025 3:53 PM CDT EPIC results best viewed via link to PDF [facility] Department of Pathology [address] [place] [address] Note to Patients: This report may contain a detailed description of human tissue sent by a health care provider to the laboratory for pathologic evaluation. The content of this report is essential for diagnosis and may provide important critical findings. This information may be unfamiliar to patients to review without a medical professional present. It is advised that the patient review this report in the presence of a health care provider who can answer questions and explain the details. Final Report Patient Name: VERONICA GRIDER Address: [address] [place] [address] Gender: F : 1975 (Age: 50) Service: Gastro Location: [facility] Hospital #: [id number] Patient Type: [facility] Taken: 05/22/2025 Received: 05/23/2025 Accessioned: 05/23/2025 Reported: 05/28/2025 Physician(s):Damian Carrizales MD Diagnosis: A. Cecal polyps x2, endoscopic biopsies- Fragments of tubular adenoma B. Ascending colon polyps x3, endoscopic biopsies- Fragments of tubular adenoma C. Transverse colon polyps times 12, endoscopic biopsies- Fragments of tubular adenoma D. Sigmoid colon, endoscopic biopsy- Benign colonic mucosa demonstrating edema and congestion with regenerative features Osiris Orr M.D. Report Electronically Reviewed and Signed Out By Osiris Orr M.D. 05/28/2025 15:53:12 Specimen(s) Received: A: Cecum colon polyps x 2 B: Ascending colon polyps x 3 C: Transverse colon polyps x 12 D: sigmoid colon biopsies Microscopic Description: Microscopic examination corroborates the diagnosis. There is no evidence of high-grade dysplasia or malignancy in material examined. Clinical History: Colitis. Rectal bleeding. LLQ pain. History of colonic polyps. Colonoscopy. Gross Description: The specimen is submitted in four containers labeled VERONICA GRIDER. Huma. The first container is labeled cecum colon polyps x2. It is 6 guerrero tissue fragments between 1 and 4 mm. All in A. B. The second container is labeled ascending colon polyps x3. It is 6 guerrero tissue fragments between 1 and 2 mm. All in B. C. The third container is labeled transverse colon polyps times 12. It is multiple guerrero tissue fragments between 1 and 8 mm. All in C. D. The fourth container is labeled sigmoid colon biopsies. It is 3 guerrero tissue fragments measuring 1 mm. All in D. T.A. Rudy Gamez, P.A./Osiris Orr M.D. REPORT IMAGES AND SCANNED DOCUMENTS, IF INCLUDED, ONLY VIEWABLE IN PDF VERSION OF REPORT The performance characteristics of some immunohistochemical stains, fluorescence in-situ hybridization tests and immunophenotyping by flow cytometry cited in this report (if any) were determined by the Surgical Pathology Department at [facility] as part of an ongoing quality management nurse program and in compliance with federally mandated regulations drawn from the Clinical Laboratory Improvement Act of 1988 (CLIA '88). Some of these tests rely on the use of analyte specific reagents and are subject to specific labeling requirements by the US Food and Drug Administration. Such diagnostic tests may only be performed in a facility that is certified by the Department of Health and Human Services as a high complexity laboratory under CLIA '88. The FDA has determined that such clearance or approval is not necessary. This test is used for clinical purposes. It should not be regarded as investigational or for research. Nevertheless, federal rules concerning the medical use of analyte specific reagents require that the following disclaimer be attached to the report: This test was developed and its performance characteristics determined by the Surgical Pathology Department [facility]. It has not been cleared or approved by the U. S. Food and Drug Administration. Note for decalcified specimens: This assay has not been validated on decalcified tissues. Results should be interpreted with caution given the possibility of false negativity on decalcified specimens Damian Carrizales MD LAB PATHOLOGY ORDERABLES Final R esult Performing Organization Address City/[facility]/ZIP Co de Phone Number PATHOLOGY [address] [address] * POCT glucose (05/22/2025 2:19 PM CDT) Glucose, POC 93 70 - 199 mg/dL Blood 05/22/2025 2:19 PM CDT 05/22/2025 2:19 PM CDT Damian Carrizales MD LAB POCT ORDERABLES - DEVICE Fin al Result Performing Organization Address [facility]/ZIP Co de Phone Number [facility] [address] [place] [address] Department [place] [address] * Colonoscopy (05/22/2025 12:28 PM CDT) Anatomical Region Laterality Modality Other Narrative Procedure Note Damian Carrizales MD - 05/22/2025 12:28 PM CDT [facility] Patient Name: Veronica Grider Procedure Date: 05/22/2025 12:28 PM Date of : 1975 Admit Type: Outpatient Age: 50 Gender: Female Attending MD: Damian Carrizales M.D., Room: [facility] ENDOSCOPY ROOM 2 Note Status: Finalized Patient Profile: This is a 50 year old female h/o asthma, KRISHNA, PE, anxiety, depression, HLD, kidney stone, cholecystectomy here for colonoscopy for evaluationof rectal bleeding and LLQ pain. CT abdomen pelviswith contrast showed mild mucosal thickening from the sigmoid to transverse colon and scattereddiverticular disease. Her rectal bleeding has resolved but sheis still having some intermittent mild LLQ pain thatgets better after BM. No family hx of colon cancer. Colonoscopy 07/2022 showed two 4-5 mm TAs. Procedure: Colonoscopy Indications: Last colonoscopy: July 2022, Abdominal pain inthe left lower quadrant Referring MD: [place] Rivera, F.N.P. Providers: Damian Carrizales M.D. Impression: - Hemorrhoids found on perianal exam. - Seventeen 3 to 8 mm polyps in the transversecolon, in the ascending colon and in the cecum, removedwith a cold snare. Resected and retrieved. - Four small (4-6 mm) polyps in the sigmoid colonand in the descending colon. Resection not attempteddue to prolonged procedure time with difficult colon anatomy and numerous polyps removed. - Erythematous mucosa in the sigmoid colon.Biopsied. - There was significant looping of the colon. - Diverticulosis in the sigmoid colon and in the descending colon. - External and internal hemorrhoids. Recommendation: - Patient has a contact number available for emergencies. The signs and symptoms of potential delayed complications were discussed with thepatient. Return to normal activities tomorrow. Written discharge instructions were provided to thepatient. - Discharge patient to home (with escort). - Resume previous diet. - Continue present medications. - Await pathology results. - Repeat colonoscopy in 1 year for surveillance of multiple polyps and polypectomy of remaining small polyps in the left colon. - Return to referring provider as previouslyscheduled. Medicines: Monitored Anesthesia Care Complications: No immediate complications. Estimated Blood Loss: Estimated blood loss was minimal. Procedure: Pre-Anesthesia Assessment: - Prior to the procedure, a History and Physicalwas performed, and patient medications and allergieswere reviewed. The patient is competent. The risks and benefits of the procedure and the sedation optionsand risks were discussed with the patient. Allquestions were answered and informed consent was obtained. Patient identification and proposed procedure were verified by the physician, the singer songwriter and the electrical technician instructor in the endoscopy suite. Mental Status Examination: normal. Prophylactic Antibiotics: The patient does not require prophylactic antibiotics. Prior Anticoagulants: The patient has taken no anticoagulant or antiplatelet agents. Afterreviewing the risks and benefits, the patient was deemed in satisfactory condition to undergo the procedure.The anesthesia plan was to use monitored anesthesiacare (MAC). Immediately prior to administration of medications, the patient was re-assessed foradequacy to receive sedatives. The heart rate, respiratory rate, oxygen saturations, blood pressure, adequacyof pulmonary ventilation, and response to care were monitored throughout the procedure. The physical status of the patient was re-assessed after the procedure. The benefits, risks and alternatives of theprocedure and sedation were discussed and informed consentwas obtained. All questions were answered. Please referto the signed informed consent document in the medical record. The bowel preparation used was Miralax via extended prep with split dose instruction. Thebowel preparation used was bisacodyl tablets via extended prep with split dose instruction. The scope waspassed under direct vision. The Pediatric Colonoscope PCF-H190L [id number] was introduced through the anus and advanced to the the cecum, identified by appendiceal orifice and ileocecal valve. The colonoscopy was performed with difficulty due to significant looping. Successful completion of the procedure was aided by using manual pressure. The patient tolerated the procedure. The quality of the bowel preparation was adequate. Bowel prep was administered using a split dose. Findings: Small hemorrhoids were found on perianal exam. Seventeen flat and sessile polyps were found in the transverse colon, ascending colon and cecum. The polyps were 3 to 8 mm in size. These polyps were removed with a cold snare. Resection and retrieval were complete. Four sessile polyps were found in the sigmoid colon and descending colon. The polyps were small (4-6 mm) in size. Polypectomy was not attempted due to prolonged procedure time with difficult colonanatomy and numerous polyps removed. The procedure took an additional 20mintues to complete due to these difficulties. A scattered area of mildly erythematous mucosa was found in thesigmoid colon. This was biopsied with a cold forceps for histology. The colon (entire examined portion) revealed excessive looping. Advancing the scope required applying abdominal pressure. Multiple medium-mouthed and small-mouthed diverticula were found inthe sigmoid colon and descending colon. External and internal hemorrhoids were found during retroflexion. Damian Carrizales M.D. 05/22/2025 4:47:32 PM Number of Addenda: 0 Note Initiated On: 05/22/2025 12:28 PM Procedure Code(s): --- Professional --- 93986, Colonoscopy, flexible; with removal of tumor(s), polyp(s), or other lesion(s) by snare technique 52631, 59, Colonoscopy, flexible; with biopsy, single or multiple --- Technical --- 13630, Colonoscopy, flexible; with removal of tumor(s), polyp(s), or other lesion(s) by snare technique 49705, 59, Colonoscopy, flexible; with biopsy, single or multiple Diagnosis Code(s): --- Professional --- D12.3, Benign neoplasm of transverse colon (hepatic flexure orsplenic flexure) D12.2, Benign neoplasm of ascending colon D12.0, Benign neoplasm of cecum D12.5, Benign neoplasm of sigmoid colon D12.4, Benign neoplasm of descending colon K63.89, Other specified diseases of intestine K64.8, Other hemorrhoids R10.32, Left lower quadrant pain K57.30, Diverticulosis of large intestine without perforation orabscess without bleeding --- Technical --- D12.3, Benign neoplasm of transverse colon (hepatic flexure orsplenic flexure) D12.2, Benign neoplasm of ascending colon D12.0, Benign neoplasm of cecum D12.5, Benign neoplasm of sigmoid colon D12.4, Benign neoplasm of descending colon K63.89, Other specified diseases of intestine K64.8, Other hemorrhoids R10.32, Left lower quadrant pain K57.30, Diverticulosis of large intestine without perforation orabscess without bleeding CPT copyright 2022 [employer]. All rights reserved. The codes documented in this report are preliminary and upon disability program navigator reviewmay be revised to meet current compliance requirements. Recognized by the [employer] for promoting quality in endoscopy Damian Carrizales MD ENDOSCOPY PROCEDURES Final Resul t * Imaging SI Joint Injection Left (91895) (05/03/2025 1:08 PM CDT) Narrative [facility] - 05/03/2025 1:09 PM CDT The images from this study are not interpreted by Radiology. Please refer to the physician's procedure / OR operative note. Eda Baer NP IMG PAIN MGMT PROCEDURES Fin al Result [facility] * XR Hip Left 2 or 3 Views (04/24/2025 9:09 AM CDT) Anatomical Region Laterality Modality Lower Extremities, Hip, Pelvis Left D igital Radiography Narrative 04/24/2025 10:23 AM CDT Radiographs taken of the left hip today reveal mild degenerative changes with subchondral sclerosis, osteophyte formation, and maintained joint space. Sammi NUNEZ IMG XR PROCEDURES Fin al Result * (ABNORMAL) Hemoglobin A1c (04/18/2025 11:55 AM CDT) Hgb A1C 6.1(H) 4.0 - 5.6 % Estimated Average Glucose 128 mg/dL [facility] Comment: The ADA recommends reporting an estimated Average Glucose (eAG) with all Hemoglobin A1c results using the equation derived from a study of 507 normal and diabetic adults. Minority populations were underrepresented and children were not included. (Diabetes Care 31:8548-8416, 2008). The eAG is not equivalent to a fasting glucose. Blood 04/18/2025 11:5 5 AM CDT 04/18/2025 7:11 PM CDT Yoly Rivera NP LAB BLOOD ORDERABLES Fi nal Result [facility] [id number] [place] [address] * (ABNORMAL) Lipid panel (04/18/2025 11:55 AM CDT) Cholesterol 196 30 - 199 mg/dL Comment: Interpretive Data Ages < or = 19 years Acceptable: <170 mg/dL Borderline high: 170-199 mg/dL High: >or= 200 mg/dL Ages > or = 20 years Desirable: <200 mg/dL Borderline high: 200-239 mg/dL High: >or= 240 mg/dL Literature References: 1. Expert Panel on Integrated Guidelines for Cardiovascular Health and Risk Reduction in Children and Adolescents. Pediatrics 2011;128:S213 2. NCEP Expert Panel. Circulation 2004;110:227 Current Interpretive Data was last revised on 2018. Triglycerides 183(H) <=149 mg/dL [facility] Comment: Interpretive Data Ages < or = 9 years Acceptable: <75 mg/dL Borderline high: 75-99 mg/dL High: >or= 100 mg/dL Ages 10 to 20 years Acceptable: <90 mg/dL Borderline high: 90-129 mg/dL High: >or= 130 mg/dL Ages > or = 20 years Desirable: <150 mg/dL Borderline high: 150-199 mg/dL High: 200-499 mg/dL Very high: >or= 499 mg/dL Literature References: 1. Expert Panel on Integrated Guidelines for Cardiovascular Health and Risk Reduction in Children and Adolescents. Pediatrics 2011;128:S213 2. NCEP Expert Panel. Circulation 2004;110:227 Current Interpretive Data was last revised on 2018. HDL 46 >=40 mg/dL [facility] Comment: Interpretive Data Ages < or = 19 years Acceptable: >45 mg/dL Borderline low: 40-45 mg/dL Low: <40 mg/dL Ages > or = 20 years Desirable: >or= 60 mg/dL Low: <40 mg/dL Literature References: 1. Expert Panel on Integrated Guidelines for Cardiovascular Health and Risk Reduction in Children and Adolescents. Pediatrics 2011;128:S213 2. NCEP Expert Panel. Circulation 2004;110:227 Current Interpretive Data was last revised on 2018. LDL, calculated 118 <=129 mg/dL [facility] Comment: Interpretive Data Ages < or = 19 years Acceptable: <110 mg/dL Borderline high: 110-129 mg/dL High: >or= 130 mg/dL Ages > or = 20 years Optimal: <100 mg/dL Near optimal: 100-129 mg/dL Borderline high: 130-159 mg/dL High: >160 mg/dL Calculated using the Camacho LDL-C estimating equation. This equation was implemented on 2024. Prior to this date LDL-C was estimated using the Friedewald equation. Literature References: 1. Expert Panel on Integrated Guidelines for Cardiovascular Health and Risk Reduction in Children and Adolescents. Pediatrics 2011;128:S213 2. NCEP Expert Panel. Circulation 2004;110:227 3. Camacho Vazquez. DION Cardiol. 2020 January 24;5(5):540-548. doi: 10.1001/[email or web address].2020.0013 Current Interpretive Data was last revised on 2024. Non-HDL Cholesterol 150 mg/dL [facility] Comment: Interpretive Data Ages < or = 19 years Acceptable: <120 mg/dL Borderline high: 120-144 mg/dL High: >145 mg/dL Ages > or = 20 years When triglycerides are >200 mg/dL, Non-HDL cholesterol is a secondary target of therapy with treatment goals that are 30 mg/dL greater than the LDL cholesterol target. Literature References: 1. Expert Panel on Integrated Guidelines for Cardiovascular Health and Risk Reduction in Children and Adolescents. Pediatrics 2011;128:S213 2. NCEP Expert Panel. Circulation 2004;110:227 Current Interpretive Data was last revised on 2018. Chol/HDL ratio 4 [facility] Blood 04/18/2025 11:5 5 AM CDT 04/18/2025 7:11 PM CDT Narrative [facility] - 04/18/2025 8:14 PM CDT Has the patient been fasting for 8 hours or more?->Yes Yoly Rivera NP LAB BLOOD ORDERABLES Fi nal Result [facility] [address] Department [place] [address] * (ABNORMAL) POCT urinalysis dipstick (04/18/2025 11:19 AM CDT) Color, Urine, POC Yellow Clarity, ur, POC Clear Clear Glucose, ur, POC Negative Negative Bilirubin, ur, POC Negative Negative Ketones, ur, POC Negative Negative Specific Colon, POC 1.015 1.003 - 1.030 Blood, ur, POC Non-hemolyze d, trace(A) Negative pH, ur, POC 6.0 5.0 - 8.0 Protein, ur, POC Negative Negative Urobilinogen, urine, POC 0.2 0.2 - 1.0 mg/dL Nitrite, ur, POC Negative Negative Leukocytes, ur, POC Negative Negative Lot Number [id number]\ Urine 04/18/2025 11:1 9 AM CDT us Yoly Rivera NP POINT OF CARE TEST ORDBucky RABZOLTAN Final Result * CT Abdomen Pelvis W Contrast (04/08/2025 11:55 AM CDT) Anatomical Region Laterality Modality Body N/A Computed Tomogra phy 04/11/2025 9:50 AM CDT Narrative 04/11/2025 10:02 AM CDT EXAM DESCRIPTION: CT ABDOMEN PELVIS W CONTRAST REASON FOR STUDY: LLQ abdominal pain Patient had rectal bleeding about a month ago (bright red) and LLQ pain Surgery: hysterectomy and gallbladder TECHNIQUE: CT scan of the abdomen and pelvis performed with intravenous and without oral contrast using helical scanning technique with dynamic intravenous contrast injection. Reconstructed coronal and sagittal MPR images reviewed. All images stored on PACS. Automated exposure control was used as a dose optimization technique for this examination. CONTRAST TYPE/DOSE: 100mL of IOVERSOL 350 MG IODINE/ML INTRAVENOUS SYRINGE injected via intravenous COMPARISON: 07/29/2017 FINDINGS: LOWER CHEST: The heart size is stable. There is no definite evidence of a pericardial effusion. There are atherosclerotic changes of the aorta. There is mild bibasilar subsegmental atelectasis and scarring. There is small focus of round atelectasis in the medial right lower lobe, which is overall grossly similar to prior CT dated 07/29/2017. There is a small hiatal hernia. LIVER: There is diffuse hepatic steatosis. There is no definite evidence of focal hepatic lesion. The hepatic and portal veins are grossly patent. GALLBLADDER: Surgically absent. BILE DUCTS: No intrahepatic or extrahepatic ductal dilatation. SPLEEN: The spleen is grossly stable in size and unremarkable. PANCREAS: The pancreas appears grossly stable without definite evidence of pancreatic ductal dilatation, peripancreatic inflammatory changes, or peripancreatic fluid collection. ADRENALS: The bilateral adrenal glands are grossly stable and unremarkable. KIDNEYS/URINARY TRACT: There is no definite evidence of a suspicious enhancing renal lesion. There are multiple nonobstructing calculi in the left kidney with the largest measuring 0.6 cm. There is a minimal to mild left pelvicaliectasis and ureterectasis without definite evidence of obstructing calculus. There is circumferential mucosal thickening of the urinary bladder. GI: There is no definite evidence of a bowel obstruction. The appendix is visualized without definite evidence of pericecal or periappendiceal inflammatory changes to suggest appendicitis. There are scattered colonic diverticula without definite evidence of diverticulitis. There is mild mucosal thickening of the mid to distal transverse colon, descending colon, and sigmoid colon. There is small fat containing periumbilical hernia. There is no definite evidence of free air or fluid in the abdomen and pelvis. There is no definite evidence of lymphadenopathy in the abdomen and pelvis. REPRODUCTIVE: The uterus is surgically absent. MUSCULOSKELETAL: There is a mild levoscoliotic curvature of the spine with mild degenerative changes. Postsurgical changes of posterior thoracic fusion are noted involving T11 on T12 with pedicle screws and fusion rods. OTHER: No other abnormality. IMPRESSION: 1. No definite evidence of bowel obstruction. 2. Mild mucosal thickening of the mid to distal transverse colon, descending colon, and sigmoid colon, which may be related to underdistention versus mild colitis of infectious or inflammatory etiology. 3. Minimal to mild left pelvicaliectasis and ureterectasis without definite evidence of obstructing calculus, and findings may be related to recently passed calculus, radiolucent obstructing calculus, or ascending urinary tract infection. Clinical correlation with urinary analysis is recommended as clinically indicated.. 4. Circumferential mucosal thickening of the urinary bladder, which may be related to underdistention versus cystitis. This can be further evaluated with aforementioned follow-up urinary analysis. 5. Multiple nonobstructing left renal calculi. 6. Scattered colonic diverticula without definite evidence of diverticulitis. 7. Diffuse hepatic steatosis. 8. Normal appendix. THIS IS AN ELECTRONICALLY VERIFIED FINAL REPORT 04/11/2025 10:02 AM - Electronically signed by Javad Tejada D.O. PS: PS Report ID: [id number] Reading Location: [id number] Procedure Note Javad Tejada, - 04/11/2025 EXAM DESCRIPTION: CT ABDOMEN PELVIS W CONTRAST REASON FOR STUDY: LLQ abdominal pain Patient had rectal bleeding about a month ago (bright red) and LLQ pain Surgery: hysterectomy and gallbladder TECHNIQUE: CT scan of the abdomen and pelvis performed with intravenousand without oral contrast using helical scanning technique with dynamic intravenous contrast injection. Reconstructed coronal and sagittal MPRimages reviewed. All images stored on PACS. Automated exposure control was usedas a dose optimization technique for this examination. CONTRAST TYPE/DOSE: 100mL of IOVERSOL 350 MG IODINE/ML INTRAVENOUSSYRINGE injected via intravenous COMPARISON: 07/29/2017 FINDINGS: LOWER CHEST: The heart size is stable. There is no definite evidence ofa pericardial effusion. There are atherosclerotic changes of the aorta.There is mild bibasilar subsegmental atelectasis and scarring. There is smallfocus of round atelectasis in the medial right lower lobe, which is overallgrossly similar to prior CT dated 07/29/2017. There is a small hiatal hernia. LIVER: There is diffuse hepatic steatosis. There is no definiteevidence of focal hepatic lesion. The hepatic and portal veins are grossly patent. GALLBLADDER: Surgically absent. BILE DUCTS: No intrahepatic or extrahepatic ductal dilatation. SPLEEN: The spleen is grossly stable in size and unremarkable. PANCREAS: The pancreas appears grossly stable without definite evidenceof pancreatic ductal dilatation, peripancreatic inflammatory changes, or peripancreatic fluid collection. ADRENALS: The bilateral adrenal glands are grossly stable andunremarkable. KIDNEYS/URINARY TRACT: There is no definite evidence of a suspicious enhancing renal lesion. There are multiple nonobstructing calculi in theleft kidney with the largest measuring 0.6 cm. There is a minimal to mild left pelvicaliectasis and ureterectasis without definite evidence ofobstructing calculus. There is circumferential mucosal thickening of the urinary bladder. GI: There is no definite evidence of a bowel obstruction. The appendixis visualized without definite evidence of pericecal or periappendiceal inflammatory changes to suggest appendicitis. There are scattered colonic diverticula without definite evidence of diverticulitis. There is mild mucosal thickening of the mid to distal transverse colon, descendingcolon, and sigmoid colon. There is small fat containing periumbilical hernia.There is no definite evidence of free air or fluid in the abdomen and pelvis.There is no definite evidence of lymphadenopathy in the abdomen and pelvis. REPRODUCTIVE: The uterus is surgically absent. MUSCULOSKELETAL: There is a mild levoscoliotic curvature of the spinewith mild degenerative changes. Postsurgical changes of posterior thoracicfusion are noted involving T11 on T12 with pedicle screws and fusion rods. OTHER: No other abnormality. IMPRESSION: 1. No definite evidence of bowel obstruction. 2. Mild mucosal thickening of the mid to distal transverse colon,descending colon, and sigmoid colon, which may be related to underdistention versusmild colitis of infectious or inflammatory etiology. 3. Minimal to mild left pelvicaliectasis and ureterectasis withoutdefinite evidence of obstructing calculus, and findings may be related to recently passed calculus, radiolucent obstructing calculus, or ascending urinarytract infection. Clinical correlation with urinary analysis is recommended as clinically indicated.. 4. Circumferential mucosal thickening of the urinary bladder, which maybe related to underdistention versus cystitis. This can be further evaluated with aforementioned follow-up urinary analysis. 5. Multiple nonobstructing left renal calculi. 6. Scattered colonic diverticula without definite evidence ofdiverticulitis. 7. Diffuse hepatic steatosis. 8. Normal appendix. THIS IS AN ELECTRONICALLY VERIFIED FINAL REPORT 04/11/2025 10:02 AM - Electronically signed by Javad Tejada D.O. PS: PS Report ID: [id number] Reading Location: [place] [address] Damian Carrizales MD IMG CT PROCEDURES Final Result * Creatinine, whole blood (04/08/2025 11:18 AM CDT) Creatinine, bld 1.03 0.60 - 1.30 mg/dL Blood 04/08/2025 11:1 8 AM CDT 04/08/2025 11:36 AM CDT Damian Carrizales MD LAB BLOOD ORDERABLES Final Resul t [facility] [place]) 8 [facility] Department [place] [address] * eGFR (03/05/2025 9:26 AM CDT) eGFR 79 >=60 mL/min/1. 73 m2 Comment: Interpretive Data Reference Interval Normal >/= 90 mL/min/1.73m2 Mildly decreased* 60 - 89 mL/min/1.73m2 Mildly to moderately decreased 45 - 59 mL/min/1.73m2 Moderately to severely decreased 30 - 44 mL/min/1.73m2 Severely decreased 15 - 29 mL/min/1.73m2 Kidney Failure < 15 mL/min/1.73m2 *Relative to young adult level Estimated glomerular filtration rate is determined by the 2020 CKD-EPI equation recommended by the National Kidney Foundation (A Unifying Approach to GFR Estimation: Recommendations of the NKF-ASK Task Force on Reassessing the Inclusion of Race in Diagnosing Kidney Disease, JASN 2020). The CKD-EPI equation should not be used for patients with unstable renal function and has not been validated in children and those over 70. Current interpretive data was last reviewed 2021. Blood 03/05/2025 9:26 AM CDT 03/05/2025 10:14 AM CDT us Damian Carrizales MD LAB BLOOD ORDERABLES Final Resul t [facility] ([place] 1 [facility] Department [place] [address] * (ABNORMAL) Differential, auto (03/05/2025 9:26 AM CDT) Neutrophil abs 6.54(H) 1.50 - 6.50 K/cumm Imm gran abs 0.03 0.00 - 0.10 K/cumm [facility] ([place]) Lymphocyte abs 1.30 0.80 - 3.30 K/cumm [facility] ([place]) Monocyte abs 0.60 0.20 - 0.80 K/cumm [facility] ([place]) Eosinophil abs 0.10 0.00 - 0.50 K/cumm [facility] ([place]) Basophil abs 0.06 0.00 - 0.10 K/cumm [facility] ([place]) Neutrophil pct 75.7 % [facility] ([place]) Comment: Interpretive Data Percent cell count reference ranges are not reported, since discordance with absolute values may lead to misinterpretation of CBC data. Current Interpretive Data was last revised on 2018. Imm gran pct 0.3 % [facility] ([place]) Comment: Interpretive Data Percent cell count reference ranges are not reported, since discordance with absolute values may lead to misinterpretation of CBC data. Current Interpretive Data was last revised on 2018. Lymphocyte pct 15.1 % [facility] ([place]) Comment: Interpretive Data Percent cell count reference ranges are not reported, since discordance with absolute values may lead to misinterpretation of CBC data. Current Interpretive Data was last revised on 2018. Monocyte pct 7.0 % [facility] ([place]) Comment: Interpretive Data Percent cell count reference ranges are not reported, since discordance with absolute values may lead to misinterpretation of CBC data. Current Interpretive Data was last revised on 2018. Eosinophil pct 1.2 % [facility] ([place]) Comment: Interpretive Data Percent cell count reference ranges are not reported, since discordance with absolute values may lead to misinterpretation of CBC data. Current Interpretive Data was last revised on 2018. Basophil pct 0.7 % [facility] ([place] Comment: Interpretive Data Percent cell count reference ranges are not reported, since discordance with absolute values may lead to misinterpretation of CBC data. Current Interpretive Data was last revised on 2018. Blood 03/05/2025 9:26 AM CDT 03/05/2025 10:14 AM CDT us Damian Carrizales MD LAB BLOOD ORDERABLES Final Resul t [facility] ([place]) 1 [facility] Department [place] [address] * (ABNORMAL) CBC with auto differential (03/05/2025 9:26 AM CDT) WBC 8.63 3.80 - 9.90 K/cumm Hgb 13.0 11.9 - 15.5 g/dL [facility] ([place]) Hct 40.9 35.6 - 45.5 % [facility] ([place]) Plt 399 150 - 400 K/cumm [facility] ([place]) MPV 10.9 9.1 - 12.3 fL [facility] ([place]) RBC 4.65 3.90 - 5.20 M/cumm [facility] ([place]) MCV 88.0 81.3 - 96.4 fL [facility] ([place]) MCH 28.0 27.1 - 33.3 pg [facility] ([place]) MCHC 31.8(L) 32.3 - 35.7 g/dL [facility] ([place] RDW CV 13.7 11.1 - 14.9 % [facility] ([place]) RDW SD 44.2 35.7 - 48.1 fL [facility] ([place]) NRBC abs 0.00 0.00 - 0.01 K/cumm [facility] ([place]) Blood 03/05/2025 9:26 AM CDT 03/05/2025 10:14 AM CDT Damian Carrizales MD LAB BLOOD ORDERABLES Final Resul t [facility] ([place]) 1 [facility] [place] [place] [address] * CRP (acute phase) (03/05/2025 9:26 AM CDT) Pathologist [facility] CRP <3.0 <=10.0 mg/L Blood 03/05/2025 9:26 AM CDT 03/05/2025 10:14 AM CDT us Damian Carrizales MD LAB BLOOD ORDERABLES Final Resul t Performing Organization Address City/[facility] Co de Phone Number [facility] ([place]) [address] [place] [address] [place] [place] [address] * (ABNORMAL) Comprehensive metabolic panel (03/05/2025 9:26 AM CDT) Sodium 141 135 - 145 mmol/L Potassium, pl 4.2 3.3 - 4.9 mmol/L [facility] ([place]) Chloride 105 97 - 110 mmol/L [facility] ([place]) CO2 21(L) 22 - 32 mmol/L [facility] ([place]) Anion gap 15 2 - 15 mmol/L [facility] ([place]) BUN 19 6 - 25 mg/dL [facility] ([place]) Creatinine 0.89 0.60 - 1.10 mg/dL [facility] ([place]) Glucose 103 70 - 199 mg/dL [facility] ([place]) Comment: Interpretive Data Fasting glucose >/= 126 mg/dl is diagnostic for diabetes. Fasting is defined as no caloric intake for at least 8 hours. Fasting glucose between 100 mg/dl to 125 mg/dl is diagnostic of prediabetes. In a patient with classic symptoms of hyperglycemia or hyperglycemic crisis, a random glucose >/= 200 mg/dl is diagnostic for diabetes. In the absence of unequivocal hyperglycemia, results should be confirmed by repeat testing. The classification and Diagnosis of Diabetes Diabetes Care 2021; 46: S19-S40. Current interpretive data was last revised 2022. Calcium 9.4 8.5 - 10.3 mg/dL [facility] ([place]) Bilirubin, total 0.3 0.1 - 1.2 mg/dL [facility] ([place]) Protein, pl 7.8 6.5 - 8.5 g/dL [facility] ([place]) Albumin 4.1 3.5 - 5.0 g/dL [facility] ([place]) Alk phos 123 40 - 130 Units/L [facility] ([place]) ALT 22 7 - 45 Units/L [facility] ([place]) AST 20 10 - 45 Units/L [facility] ([place]) Blood 03/05/2025 9:26 AM CDT 03/05/2025 10:14 AM CDT Damian Carrizales MD LAB BLOOD ORDERABLES Final Resul t [facility] ([place]) 1 [facility] Department [place] [address] * Screening Mammogram Bilateral W Jacky (10/08/2024 8:57 AM CUSTOM GRINDER) Anatomical Region Laterality Modality Breast Bilateral Mammography 10/08/2024 9:13 AM CUSTOM GRINDER Impressions 10/08/2024 9:13 AM CUSTOM GRINDER There is no mammographic evidence to suggest malignancy. The patient may continue screening mammography as per ACR guidelines. FINAL ASSESSMENT: BI-RADS Category 1: Negative. Electronically signed by: Maddi Mckinney M.D. Narrative 10/08/2024 9:13 AM CUSTOM GRINDER EXAMINATION: BILATERAL SCREENING MAMMOGRAM WITH TOMOGRAPHY HISTORY: [...] IMG MAMMO PROCEDURES Fi nal Result * Hepatitis C antibody Blood (04/12/2024 9:35 [...] MICROBIOLOGY - GENERAL ORDER ALISIA Final Result [facility] [id number] [place] [address] from Last 3 Months or Most Recently Relevant to Health Maintenance Insurance IDPA [email or web address] ADVANTAGE CHOICE PPO [employer] ADV[employer]AGE CHOICE PPO Advance Directives For more information, please contact: [phone] * Full Code (Latest Code Status on File) Date Activated Date Inactivated Comments 05/22/2025 12:43 PM 05/22/2025 9:08 PM * Full Code Date Activated Date Inactivated Comments 05/22/2025 12:43 PM 05/22/2025 12:43 PM Care Teams Risk Reduction Counselor Relationship Specialty Start Date End Date Yoly Rivera [employer] WORK[employer] [address] [facility] [place] [address] PCP - General Family Medicine 10/08/24 Stan Haq MD [address] [facility] [address] [place] [address] Consulting Physician Pulmonary Disease 10/09/24 Sangita Aguiar MD [address] [facility] [address] [place] [address] Consulting Physician Sleep Medicine 10/09/24 Damian Carrizales MD [address] [facility] [address] [place] [address] Consulting Physician Gastroenterology 10/09/24 Emir Bhagat MD [address] [facility] [address] [place] [address] Consulting Physician Anesthesiology 12/26/24
--- OUTSIDE RECORDS SUMMARY | 2025-05-30 11:04 | XMS_ITS | Patient Health Record ---
Author Organization [facility] Address [address] [place] [address] Care Team Providers Care Plastics Supervisor Name Role Phone Yoly Markham Primary Care Provider Un available Jaz Sanders Unavailable [phone] Elise Messina Unavailable [phone] Allergies Allergen (clinical drug ingredient) Drug/Non Drug Allergy documented on EMR Reaction Allergy Type Onset Date Status Norflex Unknown Drug Allergy 11/21/2023 Active Reason For Referral No Information Medications Medication SIG (Take, Route, Frequency, Duration) Notes Start Date End Date Status ProAir HFA 108 (90 Base) MCG/ACT Aerosol Solution Inhalation 12/29/2023 Active WIXELA INHUB 100 MCG-50 MCG/DOSE POWDER FOR INHALATION *Reorder from [employer] for eRx and Interaction Alerts* 12/29/2023 Active Metoprolol Succinate ER 25 MG Tablet Extended Release 24 Hour Oral 12/29/2023 Active Desvenlafaxine Succinate ER 50 MG Tablet Extended Release 24 Hour 1 tablet Oral Once a day; Duration: 90 days d/c 25 mg dose 05/29/2025 Active Ibuprofen 800 MG Tablet 1 tablet with food or milk as needed Orally every 8 hrs Active Modafinil 200 MG Tablet Oral 12/29/2023 Not-Taking Tylenol 325 MG Tablet 1 tablet as needed Orally every 4 hours Active metFORMIN HCl ER 500 MG Tablet Extended Release 24 Hour TAKE 1 TABLET BY MOUTH EVERY DAY WITH BREAKFAST Oral; Duration: 90 Days Active Gabapentin 300 MG Capsule 1 capsule Orally three times a day Active Trelegy Ellipta 200-62.5-25 MCG/ACT Aerosol Powder Breath Activated INHALE 1 PUFF DAILY Inhalation; Duration: 30 Days Active Cyclobenzaprine HCl 10 MG Tablet TAKE [...] Linzess 72 mcg Capsule Oral 12/29/2023 Active lamoTRIgine 25 MG Tablet 1 tablet [...] Duration: 90 days pa approved 05/29/2025 Active Vraylar 1.5 mg Capsule take one capsule daily Oral bedtime; Duration: 90 days 05/29/2025 Active Immunizations Vaccine Route Administration Date Status Comme nts Influenza virus vaccine, quadrivalent (IIV4), split virus, 0.25 mL dosage Unknown 06/29/2022 Administered [employer] Covid-19 Vac cine 2nd dose Unknown 06/29/2022 Administered Social History Tobacco Use: Social History Observation Description Date Details (start date - stop date) Former Smoker NA - NA Sex Assigned At : Social History Observation Description Sex Assigned At Female Social History Miscellaneous: Social Info Question Answer Notes Advance Care Planning Are you your own decision-maker Yes Do you have Power of State Farm Agent for Health or [facility]? No Drug/Alcohol: Social Info Question Answer Notes [...] Den ies Do you drink alcohol? No Problems Problem Type SNOMED Code ICD Code Onset Dates Problem Status W/U Status Risk Notes Problem Hypothyroidism (92216165) Hypothyroidism, unspecified (E03.9) 11/21/19 Active confirmed Problem Obesity (874212862) Obesity, unspecified (E66.9) 11/21/19 Active confirmed Problem Hyperlipidemia (00573427) Hyperlipidemia, unspecified (E78.5) 11/21/19 Active confirmed Problem Schizoaffective disorder, bipolar type (60834547) Schizoaffective disorder, bipolar type (F25.0) 11/21/19 Active confirmed Problem Schizoaffective disorder, depressive type (50108787) Schizoaffective disorder, depressive type (F25.1) 11/21/19 Active confirmed Problem Generalized anxiety disorder (06144144) Generalized anxiety disorder (F41.1) 11/21/19 Active confirmed Problem Posttraumatic stress disorder (72032586) Post-traumatic stress disorder, chronic (F43.12) 11/21/19 Active confirmed Problem Recurrent hypersomnia (373050848) Recurrent hypersomnia (G47.13) 11/21/19 Active confirmed Problem Sleep apnea (28898251) Sleep apnea, unspecified (G47.30) 11/21/19 Active confirmed Problem Uncomplicated asthma (disorder) (485200440) Unspecified asthma, uncomplicated (J45.909) 11/21/19 Active confirmed Problem Screening for cardiovascular system disease (448932287) Encounter for screening for cardiovascular disorders (Z13.6) Active confirmed Problem Long-term current use of drug therapy (602450149) Other custodial (current) drug therapy (Z79.899) 11/21/19 Active confirmed Problem Irritable bowel syndrome characterized by constipation (312612980) Irritable bowel syndrome with constipation (K58.1) 11/21/19 Active confirmed Problem Depression Screening (877978813) Encounter for screening for depression (Z13.31) Active confirmed Problem Chronic post-traumatic stress disorder (703234088) Chronic posttraumatic stress disorder (F43.12) Active confirmed Problem Weight gain (090431462) Weight gain (R63.5) Active confirmed Vital Signs Heart Rate 111 /min 05/29/2025 Respiratory Rate 16 /min 05/29/2025 Height-cm 170.18 cm 05/29/2025 Blood pressure diastolic 80 mm Hg 05/29/2025 Weight-kg 139.71 kg 05/29/2025 Height 67.00 in 05/29/2025 Blood pressure systolic 121 mm Hg 05/29/2025 Weight 308 lbs 05/29/2025 BMI 48.23 kg/m2 05/29/2025 Encounters Encounter Location Date Provider Diagnosis [address] [address] 06/07/2024 Elise Messina Schizoaffective disorder, bipolar type F25.0 ; Generalized anxiety disorder F41.1 and Chronic posttraumatic stress disorder F43.[address] [address] 06/12/2024 Jaz Thery Sleep apnea, unspeci fied G47.30 ; Schizoaffective disorder, depressive type F25.1 ; Other long term care social worker (current) drug therapy Z79.899 ; Generalized anxiety disorder F41.1 and Post-traumatic stress disorder, chronic F43.[address] [address] 07/20/2024 Jaz Thery Sleep apnea, unspeci fied G47.30 ; Schizoaffective disorder, depressive type F25.1 ; Other long term care social worker (current) drug therapy Z79.899 ; Generalized anxiety disorder F41.1 and Post-traumatic stress disorder, chronic F43.[address] [address] 07/30/2024 Jaz Thery Sleep apnea, unspeci fied G47.30 ; Schizoaffective disorder, depressive type F25.1 ; Other long term care social worker (current) drug therapy Z79.899 ; Generalized anxiety disorder F41.1 and Post-traumatic stress disorder, chronic F43.[address] [address] 08/13/2024 Jaz Thery Sleep apnea, unspeci fied G47.30 ; Schizoaffective disorder, depressive type F25.1 ; Other long term care social worker (current) drug therapy Z79.899 ; Generalized anxiety disorder F41.1 and Post-traumatic stress disorder, chronic F43.12 [facility], [facility] [address] [place] [address] 09/03/2024 Jaz Thery Sleep apnea, unspeci fied G47.30 ; Schizoaffective disorder, depressive type F25.1 ; Other long term care social worker (current) drug therapy Z79.899 ; Generalized anxiety disorder F41.1 and Post-traumatic stress disorder, chronic F43.12 [facility], [facility] [address] [place] [address] 09/27/2024 Jaz Thery Sleep apnea, unspeci fied G47.30 ; Schizoaffective disorder, depressive type F25.1 ; Other custodial (current) drug therapy Z79.899 ; Generalized anxiety disorder F41.1 and Post-traumatic stress disorder, chronic F43.12 [facility], [facility] [address] [place] [address] 10/03/2024 Elise Mayuri Generalized anxiety disorder F41.1 ; Schizoaffective disorder, depressive type F25.1 and Chronic posttraumatic stress disorder F43.12 [facility], [facility] [address] [place] [address] 10/12/2024 Jaz Thery Sleep apnea, unspeci fied G47.30 ; Schizoaffective disorder, depressive type F25.1 ; Other long term care social worker (current) drug therapy Z79.899 ; Generalized anxiety disorder F41.1 and Post-traumatic stress disorder, chronic F43.12 [facility], [facility] [address] [place] [address] 10/18/2024 Elise Mayuri Schizoaffective disorder, bipolar type F25.0 ; Generalized anxiety disorder F41.1 and Chronic posttraumatic stress disorder F43.12 [facility], [facility] [address] [place] [address] 10/22/2024 Jaz Thery [facility], [facility] [address] [place] [address] 11/06/2024 Jaz Thery Sleep apnea, unspeci fied G47.30 ; Schizoaffective disorder, depressive type F25.1 ; Other custodial (current) drug therapy Z79.899 ; Generalized anxiety disorder F41.1 and Post-traumatic stress disorder, chronic F43.12 [place] [address] [facility] [address] [address] 11/06/2024 Elise Messina Schizoaffective disorder, bipolar type F25.0 ; Generalized anxiety disorder F41.1 and Chronic posttraumatic stress disorder F43.[address] [facility] [address] [place] [address] 02/04/2025 Jaz Sanders Encounter for screen ing for depression Z13.31 ; Schizoaffective disorder, depressive type F25.1 ; Encounter for screening for cardiovascular disorders Z13.6 ; Sleep apnea, unspecified G47.30 ; Other custodial (current) drug therapy Z79.899 ; Generalized anxiety disorder F41.1 and Post-traumatic stress disorder, chronic F43.[address] [address] 05/07/2025 Jaz Sanders Dietary counseling a nd surveillance Z71.3 ; Encounter for screening for depression Z13.31 ; Sleep apnea, unspecified G47.30 ; Schizoaffective disorder, depressive type F25.1 ; Other long term care social worker (current) drug therapy Z79.899 ; Generalized anxiety disorder F41.1 ; Post-traumatic stress disorder, chronic F43.12 and Weight gain R63.[address] [address] 05/29/2025 Jaz Sanders Sleep apnea, unspeci fied G47.30 ; Other long term care social worker (current) drug therapy Z79.899 ; Schizoaffective disorder, depressive type F25.1 ; Generalized anxiety disorder F41.1 ; Post-traumatic stress disorder, chronic F43.12 and Weight gain R63.5 [place] [address] [facility] [address] [address] 06/14/2024 Jaz Sanders [address] [address] 04/24/2025 Jaz Sanders Schizoaffective disorder, depressive type F25.[address] [address] 07/03/2024 Jaz Theralejandro [facility], [facility] [address] [place] [address] 07/11/2024 Jaz Calibrusalejandro [facility], [facility] [address] [place] [address] 07/27/2024 Jaz Theralejandro [facility], [facility] [address] [place] [address] 08/01/2024 Jaz Calibrusalejandro [facility], [facility] [address] [place] [address] 10/08/2024 Jaz Calibrusalejandro [facility], [facility] [address] [place] [address] 10/08/2024 Jaz Calibrusalejandro [facility], [facility] [address] [place] [address] 10/09/2024 Jaz Calibrusalejandro [facility], [facility] [address] [place] [address] 10/09/2024 Jaz Calibrusalejandro [facility], [facility] [address] [place] [address] 10/09/2024 Jaz Calibrusalejandro [facility], [facility] [address] [place] [address] 12/31/2024 Jaz Calibrusalejandro [facility], [facility] [address] [place] [address] 01/30/2025 Jaz Calibrusalejandro [facility], [facility] [address] [place] [address] 05/07/2025 Jaz Calibrusalejandro [facility], [facility] [address] [place] [address] 05/24/2025 Jaz Thery [facility], [facility] [address] [place] [address] 05/24/2025 [facility] [address] [place] [address] 05/29/2025 Jaz Sanders Assessments Encounter Date Diagnosis (ICD Code) Assessment Notes Treatment Notes Treatment Clinical Notes Section Notes 06/07/2024 Schizoaffective disorder, bipolar type (ICD-10 - F25.0) 07/20/2024 Sleep apnea, unspecified (ICD-10 - G47.30) [...] Discussion Notes therapy obtain labs PCP 09/27/2024 Sleep apnea, unspecified (ICD-10 - G47.30) [...] 10/03/2024 Generalized anxiety disorder (ICD-10 - F41.1) 10/12/2024 Sleep apnea, unspecified (ICD-10 - G47.30) [...] Notes therapy continue obtain labs PCP 11/06/2024 Sleep apnea, unspecified (ICD-10 - G47.30) [...] Schizoaffective disorder, bipolar type (ICD-10 - F25.0) 02/04/2025 Schizoaffective disorder, depressive type (ICD-10 - F25.1) [...] disorder 5. Long-term drug therapy Discussion Notes [facility] [place] therapy continue obtain labs PCP 02/04/2025 Encounter for screening for depression (ICD-10 - Z13.31) discussion with patient about course of treatment [...] disorder 5. Long-term drug therapy Discussion Notes [facility] [place] therapy continue obtain labs PCP 04/24/2025 Schizoaffective disorder, depressive type (ICD-10 - F25.1) 05/07/2025 Dietary counseling and surveillance (ICD-10 - Z71.3) Learning About the Mediterranean Diet material was published, Learning About Low-Carbohydrate Foods material was published, Learning About Low-Sodium Foods material was published, Learning About Carbohydrate (Carb) Counting and Eating Out When You Have Diabetes material was published, Low Sodium Diet (2,000 Milligram): Care Instructions material was published, DASH Diet: Care Instructions material was published, Counting Carbohydrates for Diabetes: Care Instructions material was published, Learning About Meal Planning for Diabetes material was published, Learning About Low-Carbohydrate Diets material was published, Learning About Healthy Weight material was published, Learning About Low-Fat Eating material was published, Heart-Healthy Diet: Care Instructions material was published, Low-Fat Diet for Gallbladder Disease: Care Instructions material was published, Eating Healthy Foods: Care Instructions material was published, How to Read a Food Label to Limit Sodium: Care Instructions material was published, Learning About Eating More Fruits and Vegetables material was published, Limiting Sodium With Heart Failure: Care Instructions material was published, Learning About Dietary Guidelines material was published discussion with patient about [...] monitor for depression and anxiety monitor B/P Increase Buspar 15 mg three times a day- Vistaril 10 [...] Consider referral to a registered dietitian or paint mixer machine. The USDA approximate food plate volumes (http_s://www.Cap Thatp MWHS.gov) are: Vegetables and fruits should comprise half [...] apps). . [facility] [place] [facility] continue obtain labs PCP 05/29/2025 Sleep apnea, unspecified (ICD-10 - G47.30) [...] hepatic steatosis. Imaging SI Joint Injection Left (85438) (05/03/2025) The images from this study are [...] Consider referral to a registered dietitian or paint mixer machine. The USDA approximate food plate volumes (http_s://www.myp [...] therapy Discussion Notes [facility] [address] therapy continue 10/18/2024 Schizoaffective disorder, bipolar type (ICD-10 - [...] Discussion Notes therapy obtain labs PCP 06/12/2024 Schizoaffective disorder, depressive type (ICD-10 - [...] therapy Discussion Notes therapy obtain labs PCP 10/18/2024 Generalized anxiety disorder (ICD-10 - F41.1) 05/29/2025 Other long term care social worker (current) drug therapy (ICD-10 - Z79.899) Medication [...] hepatic steatosis. Imaging SI Joint Injection Left (25252) (05/03/2025) The images from this study are [...] Consider referral to a registered dietitian or paint mixer machine. The USDA approximate food plate volumes (http_s://www.Cap Thatp MWHS.gov) are: Vegetables and fruits should comprise half [...] Long-term drug therapy Discussion Notes [facility] [place] therapy continue 09/03/2024 Schizoaffective disorder, depressive type (ICD-10 - [...] therapy Discussion Notes therapy obtain labs PCP 05/07/2025 Encounter for screening for depression (ICD-10 - Z13.31) Learning About Depression Screening material was published discussion with patient about [...] monitor for depression and anxiety monitor B/P Increase Buspar 15 mg three times a day- Vistaril 10 [...] Consider referral to a registered dietitian or paint mixer machine. The USDA approximate food plate volumes (http_s://www.Cap Thatp MWHS.gov) are: Vegetables and fruits should comprise half [...] . Long-term drug therapy Discussion Notes [facility] [place] therapy continue obtain labs PCP 02/04/2025 Encounter for screening for cardiovascular disorders (ICD-10 - Z13.6) discussion with patient about course of treatment [...] disorder 5. Long-term drug therapy Discussion Notes [facility] [place] therapy continue obtain labs PCP 11/06/2024 Generalized [...] needed today therapy continue obtain labs PCP 10/03/2024 Chronic posttraumatic stress [...] Notes therapy continue obtain labs PCP 09/27/2024 Other custodial (current) drug therapy (ICD-10 - Z79.899) Medication [...] Discussion Notes therapy obtain labs PCP 09/27/2024 Schizoaffective disorder, depressive [...] 06/07/2024 Generalized anxiety disorder (ICD-10 - F41.1) 06/07/2024 Chronic posttraumatic stress disorder (ICD-10 - F43.12) 07/20/2024 Other custodial (current) drug therapy (ICD-10 - Z79.899) Medication [...] Notes therapy obtain labs PCP 07/30/2024 Other custodial (current) drug therapy (ICD-10 - Z79.899) Medication [...] Notes therapy obtain labs PCP 08/13/2024 Other long term care social worker (current) drug therapy (ICD-10 - Z79.899) Medication [...] Notes therapy obtain labs PCP 10/12/2024 Other custodial (current) drug therapy (ICD-10 - Z79.899) Medication [...] Notes therapy continue obtain labs PCP 11/06/2024 Chronic posttraumatic stress disorder (ICD-10 - F43.12) 11/06/2024 Other long term care social worker (current) drug therapy (ICD-10 - Z79.899) Medication [...] needed today therapy continue obtain labs PCP 05/29/2025 Schizoaffective disorder, depressive type (ICD-10 - [...] hepatic steatosis. Imaging SI Joint Injection Left (88861) (05/03/2025) The images from this study are [...] Consider referral to a registered dietitian or paint mixer machine. The USDA approximate food plate volumes (http_s://www.myp [...] Long-term drug therapy Discussion Notes [facility] [place] therapy continue 05/29/2025 Generalized anxiety disorder (ICD-10 [...] hepatic steatosis. Imaging SI Joint Injection Left (89942) (05/03/2025) The images from this study are [...] Consider referral to a registered dietitian or paint mixer machine. The USDA approximate food plate volumes (http_s://www.myp [...] apps). . Long-term drug therapy Discussion Notes [facility] [place] therapy continue 02/04/2025 Sleep apnea, unspecified (ICD-10 - G47.30) Learning [...] disorder 5. Long-term drug therapy Discussion Notes [facility] [place] therapy continue obtain labs PCP 05/07/2025 Sleep apnea, unspecified (ICD-10 - G47.30) Learning [...] Bilevel Positive Airway Pressure (BPAP) material was published discussion with patient about [...] monitor for depression and anxiety monitor B/P Increase Buspar 15 mg three times a day- Vistaril 10 [...] Consider referral to a registered dietitian or paint mixer machine. The USDA approximate food plate volumes (http_s://www.myp [...] Discussion Notes [facility] [place] therapy continue obtain labs PCP 10/18/2024 Chronic posttraumatic stress disorder (ICD-10 - F43.12) 06/12/2024 Other custodial (current) drug therapy (ICD-10 - Z79.899) Medication [...] Notes therapy obtain labs PCP 09/03/2024 Other long term care social worker (current) drug therapy (ICD-10 - Z79.899) Medication [...] therapy Discussion Notes therapy obtain labs PCP 05/07/2025 Other long term care social worker (current) drug therapy (ICD-10 - Z79.899) Medication [...] monitor for depression and anxiety monitor B/P Increase Buspar 15 mg three times a day- Vistaril 10 [...] Consider referral to a registered dietitian or paint mixer machine. The USDA approximate food plate volumes (http_s://www.myp [...] Discussion Notes [facility] [place] therapy continue obtain labs PCP 05/29/2025 Post-traumatic stress disorder, chronic (ICD-10 - [...] hepatic steatosis. Imaging SI Joint Injection Left (19008) (05/03/2025) The images from this study are [...] Consider referral to a registered dietitian or paint mixer machine. The USDA approximate food plate volumes (http_s://www.myp [...] Discussion Notes [facility] [place] therapy continue 02/04/2025 Other custodial (current) drug therapy (ICD-10 - Z79.899) Medication [...] disorder 5. Long-term drug therapy Discussion Notes [facility] [place] therapy continue obtain labs PCP 05/07/2025 Schizoaffective disorder, depressive type (ICD-10 - F25.1) [...] monitor for depression and anxiety monitor B/P Increase Buspar 15 mg three times a day- Vistaril 10 [...] Consider referral to a registered dietitian or paint mixer machine. The USDA approximate food plate volumes (http_s://www.myp [...] . Long-term drug therapy Discussion Notes [facility] [place] therapy continue obtain labs PCP 11/06/2024 Generalized [...] Discussion Notes therapy continue obtain labs PCP 08/13/2024 Generalized anxiety disorder [...] Discussion Notes therapy obtain labs PCP 09/03/2024 Generalized anxiety disorder [...] use - educated to use for SAD- slavador start using see PCP thyroid and hormones [...] needed today therapy continue obtain labs PCP 05/07/2025 Generalized anxiety disorder (ICD-10 - F41.1) Generalized [...] and Your Anxiety About It material was published discussion with patient about [...] monitor for depression and anxiety monitor B/P Increase Buspar 15 mg three times a day- Vistaril 10 [...] Consider referral to a registered dietitian or paint mixer machine. The USDA approximate food plate volumes (http_s://www.Cap Thatp MWHS.gov) are: Vegetables and fruits should comprise half [...] apps). . [facility] obtain labs PCP 02/04/2025 Generalized anxiety disorder (ICD-10 - F41.1) Generalized [...] disorder 5. Long-term drug therapy Discussion Notes [facility] therapy continue obtain labs PCP 06/12/2024 Post-traumatic stress disorder, [...] therapy Discussion Notes therapy obtain labs PCP 05/29/2025 Weight gain (ICD-10 - R63.5) Abnormal [...] hepatic steatosis. Imaging SI Joint Injection Left (21983) (05/03/2025) The images from this study are [...] Consider referral to a registered dietitian or paint mixer machine. The USDA approximate food plate volumes (http_s://www.myp [...] therapy Discussion Notes [facility] therapy continue 02/04/2025 Post-traumatic stress disorder, chronic (ICD-10 - F43.12) [...] disorder 5. Long-term drug therapy Discussion Notes [facility] [place] therapy continue obtain labs PCP 05/07/2025 Post-traumatic stress disorder, chronic (ICD-10 - F43.12) Post-Traumatic Stress Disorder (PTSD): Care Instructions material was published, Post-Traumatic Stress Disorder (PTSD): Care Instructions material was published, Post-Traumatic Stress Disorder (PTSD): Care Instructions material was published, Learning About PTSD After a Stay in the ICU material was published discussion with patient about [...] monitor for depression and anxiety monitor B/P Increase Buspar 15 mg three times a day- Vistaril 10 [...] Consider referral to a registered dietitian or paint mixer machine. The USDA approximate food plate volumes (http_s://www.Cap Thatp MWHS.gov) are: Vegetables and fruits should comprise half [...] therapy Discussion Notes [facility] therapy continue obtain labs PCP 05/07/2025 Weight gain (ICD-10 - R63.5) Abnormal Weight Gain: Care Instructions material was published discussion with [...] monitor for depression and anxiety monitor B/P Increase Buspar 15 mg three times a day- Vistaril 10 [...] Consider referral to a registered dietitian or paint mixer machine. The USDA approximate food plate volumes (http_s://www.myp [...] Discussion Notes [facility] continue obtain labs PCP 06/07/2024 Other Client reports [...] of functioning through the showing of acceptance. 05/07/2025 Other Cariprazine material was published, Bupropion material was published, Desvenlafaxine material was published, Hydroxyzine material was published, Buspirone material was published discussion with patient about [...] monitor for depression and anxiety monitor B/P Increase Buspar 15 mg three times a day- Vistaril 10 [...] Consider referral to a registered dietitian or paint mixer machine. The USDA approximate food plate volumes (http_s://www.[employer] MWHS.gov) are: Vegetables and fruits should comprise half [...] Discussion Notes [facility] therapy continue obtain labs PCP 05/29/2025 Other Cariprazine material was published, Bupropion [...] hepatic steatosis. Imaging SI Joint Injection Left (54348) (05/03/2025) The images from this study are [...] Consider referral to a registered dietitian or paint mixer machine. The USDA approximate food plate volumes (http_s://www.myp [...] [facility] therapy continue Plan Of Treatment Next Appt Details Provider Name:Jaz Sanders , 06/26/2025 09:15:00 AM, [address], [facility] [address], [place], [address], Provider Name:Jaz Sanders , 07/04/2025 11:15:00 AM, [address], [address], [place], [address], Insurance Providers Payer Name Payer Address Payer Phone Subscriber Number Group Number Insured Name Patient Relationship to Insured Coverage Start Date Coverage End Date [employer] [address] [place] [phone] [id number] RUI GRIDER Self - patient is the insured [place] [address] [address] [place] [phone] [id number] RUI GRIDER Self - patient is the insured Medical (General) History Medical History History ICD Code Problems: Chronic post-traumatic stress disorder Generalized anxiety disorder Long-term drug therapy Moderate recurrent major depression Obesity Psychotic disorder Recurrent hypersomnia Schizoaffective disorder Schizoaffective disorder, bipolar type ,sleep apnea asthma Surgical History Surgery Date(Month/Year) Hysterectomy (80598) Removal of gallbladder (54010) Sinus surgery Any surgical history
== END 2025-05-30 10:35 | disposition home or self-care (01) ==
DX: N20.0 Calculus of kidney (principal)
CPT/HCPCS: 74176